=== PATIENT | female | born 1960 | race Caucasian/White ===

== ENCOUNTER → 2016-10-08 | Outpatient (CLI) | payer OTHER ==
--- NOTE | 2016-10-16 11:05 | MM ---
Reason for exam: screening (asymptomatic). Last mammogram was performed 10 years and 5 months ago. History: Patient had first child at age 33. Benign US right core biopsy of the right breast, May 27, 2006. Physical Findings: A clinical breast exam by your physician is recommended on an annual basis and results should be correlated with mammographic findings. MG Screening Mammo w CAD Bilateral CC and MLO view(s) were taken. Prior study comparison: July 05, 2014, mammogram, performed at [facility]. November 26, 2012, mammogram, performed at [facility]. The breast tissue is heterogeneously dense. This may lower the sensitivity of mammography. No significant changes when compared with prior studies. ASSESSMENT: Benign, BI-RAD 2 RECOMMENDATION: Routine screening mammogram of both breasts in 1 year.
== END | disposition home or self-care (01) ==
LOC: RADMAMWWP 11:03
PROVIDERS: ATTEND Family Medicine
DX: Z12.31 Encounter for screening mammogram for malignant neoplasm of breast (principal)

== ENCOUNTER → 2016-10-16 | Outpatient (CLI) | payer OTHER ==
--- NOTE | 2016-10-16 10:17 | CT ---
EXAMINATION TYPE: CT chest w con DATE OF EXAM: 10/16/2016 9:56 AM COMPARISON: NONE HISTORY: mass Lt upper posterior chest CT DLP: 167.8 mGycm Automated exposure control for dose reduction was used. CONTRAST: CT scan of the chest is performed with IV Contrast, patient injected with 100 mL of Omnipaque 300. FINDINGS: LUNGS: The lungs are grossly clear, there is no concerning parenchymal mass or nodule identified. T here is no pleural effusion or pneumothorax seen. The tracheobronchial tree is patent. MEDIASTINUM: There are no greater than 1 cm hilar or mediastinal lymph nodes. No pericardial effusi on is seen. Aorta of normal caliber. OTHER: Within the posterior segment of the right lobe of the liver there is a 1.4 cm mass which does not demonstrate the characteristics of a simple cyst. Hounsfield unit measurement of 53. Previous gallbladder surgery noted. Small hiatal hernia noted. IMPRESSION: 1. No acute intrathoracic process. 2. No soft tissue mass overlying the area of palpable abnormality. 3. 1.4 cm right lobe hepatic lesion does not meet the criteria of a simple cyst. MRI recommended.
== END | disposition home or self-care (01) ==
LOC: RADCTMAIN 09:29
PROVIDERS: ATTEND Family Medicine
DX: D21.3 Benign neoplasm of connective and other soft tissue of thorax (principal)
CPT/HCPCS: 71260; Q9967

== ENCOUNTER 2017-10-15 09:59 | Day surgery (SDC) | payer OTHER ==
[2017-10-12 14:40] VITALS: BMI 27.4
[~2017-10-15 09:59] MED LIST: LACTATED RINGERS 1,000 ML IV SCH; LIDOCAINE 1% 20 ML VIAL (10MG/ML) FOR IV START INTRADERMA PRN
[2017-10-15 10:39] VITALS: RESP 18; TEMP 97.7
[2017-10-15] MEDS ORDERED: PROPOFOL 10 MG/ML 20 ML VIAL IV ONE (11:09)
--- NOTE | 2017-10-15 11:32 | P.PCN ---
Date of Procedure: 10/15/17 Procedure(s) Performed: BRIEF HISTORY: Patient is a 57-year-old pleasant white female, scheduled for an elective colonoscopy as a part of screening for colorectal neoplasia. PROCEDURE PERFORMED: Colonoscopy. PREOPERATIVE DIAGNOSIS: Screening for colon cancer]. IV sedation per Anesthesia. PROCEDURE: After informed consent was obtained, the patient, was brought into the endoscopy unit. IV sedation was administered by Anesthesia under continuous monitoring. Digital rectal examination was normal. Initially the Olympus CF- 160 flexible video colonoscope was then inserted in the rectum, gradually advanced into the cecum without any difficulty. Careful examination was performed as the scope was gradually being withdrawn. Ileocecal valve and the appendiceal orifice were visualized and appeared normal. Prep was excellent. Mucosa of the cecum, ascending colon, transverse colon, descending colon, sigmoid colon, and rectum appeared normal. there was a 5 mm polyp noted in the distal sigmoid colon that was removed by biopsy. Retroflexion was performed in the rectum and no lesions were seen. The patient tolerated the procedure well. IMPRESSION: 5 mm sigmoid colon polyp status post removal by biopsy. Rest of the colon appeared normal. RECOMMENDATIONS: Findings of this examination were discussed with the patient as well as a family. She was advised to follow with the biopsy results. If the biopsy shows a tubular adenoma she can have a repeat colonoscopy in 5 years.
[2017-10-15 12:05] VITALS: BP 115/71; PULSE 72
== END 2017-10-15 12:20 | disposition home or self-care (01) ==
LOC: ORWHC2ENDO 09:59
PROVIDERS: ATTEND Internal Medicine Gastroenterology
DX: Z12.11 Encounter for screening for malignant neoplasm of colon (principal); K63.5 Polyp of colon; F17.210 Nicotine dependence, cigarettes, uncomplicated; Z88.5 Allergy status to narcotic agent; Z88.8 Allergy status to other drugs, medicaments and biological substances; Z79.899 Other long term (current) drug therapy
CPT/HCPCS: 45380; 88305

== ENCOUNTER → 2017-10-20 | Outpatient (CLI) | payer OTHER ==
--- NOTE | 2017-10-21 10:57 | MM ---
Reason for exam: screening (asymptomatic). Last mammogram was performed 1 year ago. History: Patient is postmenopausal and had first child at age 33. Benign US right core biopsy of the right breast, May 27, 2006. Physical Findings: A clinical breast exam by your physician is recommended on an annual basis and results should be correlated with mammographic findings. MG Screening Mammo w CAD Bilateral CC and MLO view(s) were taken. Prior study comparison: October 08, 2016, bilateral MG screening mammo w CAD. July 05, 2014, mammogram, performed at [facility]. The breast tissue is heterogeneously dense. This may lower the sensitivity of mammography. Finding: There are typically benign round calcifications in both breasts. Previous mammotome biopsy in the right breast. There is a chronic nodularity in the right breast. There is no discrete abnormality. ASSESSMENT: Benign, BI-RAD 2 RECOMMENDATION: Routine screening mammogram of both breasts in 1 year.
== END ==
LOC: RADMAMWWP 09:49
PROVIDERS: ATTEND Family Medicine
DX: Z12.31 Encounter for screening mammogram for malignant neoplasm of breast (principal)
CPT/HCPCS: 77067

== ENCOUNTER → 2018-11-08 | Outpatient (CLI) | payer OTHER ==
--- NOTE | 2018-11-09 09:11 | MM ---
Reason for exam: screening (asymptomatic). Last mammogram was performed 1 year and 1 month ago. History: Patient is postmenopausal and had first child at age 33. Benign US right core biopsy of the right breast, May 27, 2006. Physical Findings: A clinical breast exam by your physician is recommended on an annual basis and results should be correlated with mammographic findings. MG Screening Mammo w CAD Bilateral CC and MLO view(s) were taken. Prior study comparison: October 20, 2017, bilateral MG screening mammo w CAD. October 08, 2016, bilateral MG screening mammo w CAD. The breast tissue is extremely dense which could obscure a lesion on mammography. There are benign appearing round calcifications bilaterally. Previous mammotome biopsy in the right breast. There is chronic nodularity in the left breast. There is no discrete abnormality. ASSESSMENT: Benign, BI-RAD 2 RECOMMENDATION: Routine screening mammogram of both breasts in 1 year.
== END | disposition home or self-care (01) ==
LOC: RADMAMWWP 08:59
DX: Z12.31 Encounter for screening mammogram for malignant neoplasm of breast (principal)
CPT/HCPCS: 77067

== ENCOUNTER 2019-01-18 12:14 | Emergency (ER) | payer OTHER ==
[2019-01-18] MEDS ORDERED: ONDANSETRON 4 MG/2 ML VIAL IVP STA (12:52)
[2019-01-18] MEDS ORDERED: KETOROLAC 30 MG/ML 1 ML VIAL IVP STA (12:52)
[2019-01-18 13:13] LABS: ALT 27 U/L (9-52); AST 16 U/L (14-36); Albumin 4.1 g/dL (3.5-5.0); Alkaline Phosphatase 72 U/L (38-126); Amylase 85 U/L (30-110); Anion Gap 9 mmol/L; Basophils # (A) 0.1 k/uL (0-0.2); Basophils % (A) 1 %; Blood Urea Nitrogen 7 mg/dL (7-17); Calcium 9.3 mg/dL (8.4-10.2); Carbon Dioxide 21 mmol/L (22-30); Chloride 109 mmol/L (98-107); Eosinophils # (A) 0.1 k/uL (0-0.7); Eosinophils % (A) 1 %; Glucose 104 mg/dL (74-99); HCT 46.1 % (34.0-46.0); HGB 14.9 gm/dL (11.4-16.0); Lipase 456 U/L (23-300); Lymphocytes # (A) 2.4 k/uL (1.0-4.8); Lymphocytes % (A) 24 %; MCHC 32.3 g/dL (31.0-37.0); MCV 93.1 fL (80.0-100.0); Mean Platelet Volume 7.5; Monocytes # (A) 0.6 k/uL (0-1.0); Monocytes % (A) 6 %; Neutrophils # (A) 6.5 k/uL (1.3-7.7); Neutrophils % (A) 66 %; Platelet Count 341 k/uL (150-450); Potassium 4.1 mmol/L (3.5-5.1); RBC 4.95 m/uL (3.80-5.40); RDW 13.2 % (11.5-15.5); Sodium 139 mmol/L (137-145); Total Bilirubin 0.4 mg/dL (0.2-1.3); Total Protein 6.7 g/dL (6.3-8.2); WBC 9.9 k/uL (3.8-10.6)
--- NOTE | 2019-01-18 13:23 | ED ---
Abdominal Pain HPI - General Chief Complaint: Abdominal Pain Stated Complaint: Flank pain/vomiting Time Seen by Provider: 01/18/19 12:30 Source: patient Mode of arrival: ambulatory - History of Present Illness Initial Comments: 58-year-old female presenting today for chief complaint of right-sided abdominal flank pain and vomiting times one day. Patient states she woke up this morning around 10:30 experiencing some right flank that wraps around towards the right lower abdomen, she states half hour later as the pain increased she had episode of vomiting. Patient another episode of emesis once in the emergency department. Patient denies any hematemesis. Patient denies history of kidney stones. She denies any dysuria urgency frequency hematuria. Patient denies any diarrhea melena or hematochezia. Patient denies any fever or chills or night sweats. Patient denies any upper abdominal pain or chest pain. She states it is all lower. Patient denies shortness of breath. Remaining review of systems negative upon arrival pt VS WNL. Pt denies taking medications prior to arrival and denies any past medical history. - Related Data Home Medications Medication Instructions Recorded Confirmed Invega Injection Dose Unknown 1 each INJ Q30D 10/12/17 01/18/19 Previous Rx's Medication Instructions Recorded Ketorolac [Toradol] 10 mg PO Q8HR PRN 5 Days #15 tab 01/18/19 Ondansetron Odt [Zofran Odt] 4 mg PO Q12HR PRN 4 Days #8 tab 01/18/19 Allergies Allergy/AdvReac Type Severity Reaction Status Date / Time chlorpromazine Allergy Anaphylaxis Verified 01/18/19 12:54 [From Thorazine] codeine Allergy Rash/Hives Verified 01/18/19 12:54 Review of Systems ROS Statement: Those systems with pertinent positive or pertinent negative responses have been documented in the HPI. ROS Other: All systems not noted in ROS Statement are negative. Past Medical History Past Medical History: No Reported History History of Any Multi-Drug Resistant Organisms: None Reported Past Surgical History: Section, Cholecystectomy, Hysterectomy, Orthopedic Surgery, Tubal Ligation Additional Past Surgical History / Comment(s): PILONIADAL CYSTECTOMY. RT ROTATOR CUFF REPAIR Past Anesthesia/Blood Transfusion Reactions: Motion Sickness Past Psychological History: Depression Smoking Status: Current every day smoker Past Alcohol Use History: None Reported Past Drug Use History: Marijuana - Past Family History Mother Family Medical History: No Reported History General Exam - General Exam Comments Initial Comments: General: The patient is awake and alert, in no distress. Vomiting in basin in front of patient. Eye: Pupils are equal, round and reactive to light, extra-ocular movements are intact. No nystagmus. There is normal conjunctiva bilaterally. No signs of icterus. Ears, nose, mouth and throat: There are moist mucous membranes and no oral lesions. Neck: The neck is supple, there is no tenderness or JVD. Cardiovascular: There is a regular rate and rhythm. No murmur, rub or gallop is appreciated. Respiratory: Lungs are clear to auscultation, respirations are non-labored, breath sounds are equal. No wheezes, stridor, rales, or rhonchi. Gastrointestinal: Soft, non-distended, non-tender abdomen without masses or organomegaly noted. There is no rebound or guarding present. No CVA tenderness. Bowel sounds are unremarkable. Musculoskeletal: Normal ROM, no tenderness. Strength 5/5. Sensation intact. Pulses equal bilaterally 2+. Neurological: A&O x 3. CN II-XII intact, There are no obvious motor or sensory deficits. Coordination appears grossly intact. Speech is normal. Skin: Skin is warm and dry and no rashes or lesions are noted. Psychiatric: Cooperative, appropriate mood & affect, normal judgment. Course Vital Signs 01/18/19 01/18/19 01/18/19 12:21 14:08 14:41 Temperature 98.4 F 98.5 F 98.6 F Pulse Rate 63 69 76 Respiratory 20 18 16 Rate Blood Pressure 142/83 102/70 112/68 O2 Sat by Pulse 99 97 98 Oximetry Medical Decision Making - Medical Decision Making 58yo female presenting today for chief complaint of right lower abdominal pain and right flank pain. Patient's symptoms appear consistent with renal colic. Blood in urinalysis. Pt resolved symptoms with toradol. Pt states she is feeling much better. CT revealed findings that are concerning for possible stone vs mass of ureter near right UVJ. Given sudden onset of symptoms, history and relief with Toradol. I feel pt most likely has acute stone. Discussed ddx including possibility of mass and the importance of f/u. I discussed the case with matias Thornton reviewed imaging as well as laboratory studies at this time feel patient is stable for discharge with symptomatic treatment and close out patient urology follow-up. Pt provided strainer. Pt is agreeable with plan requesting discharge home. Return parameters were discussed at length the patient verbalizes understanding. - Lab Data Result diagrams: 01/18/19 12:43 01/18/19 12:43 Lab Results 01/18/19 01/18/19 01/18/19 Range/Units 12:43 12:43 12:43 WBC 9.9 (3.8-10.6) k/uL RBC 4.95 (3.80-5.40) m/uL Hgb 14.9 (11.4-16.0) gm/dL Hct 46.1 H (34.0-46.0) % MCV 93.1 (80.0-100.0) fL MCH 30.0 (25.0-35.0) pg MCHC 32.3 (31.0-37.0) g/dL RDW 13.2 (11.5-15.5) % Plt Count 341 (150-450) k/uL Neutrophils % 66 % Lymphocytes % 24 % Monocytes % 6 % Eosinophils % 1 % Basophils % 1 % Neutrophils # 6.5 (1.3-7.7) k/uL Lymphocytes # 2.4 (1.0-4.8) k/uL Monocytes # 0.6 (0-1.0) k/uL Eosinophils # 0.1 (0-0.7) k/uL Basophils # 0.1 (0-0.2) k/uL Sodium 139 (137-145) mmol/L Potassium 4.1 (3.5-5.1) mmol/L Chloride 109 H (98-107) mmol/L Carbon Dioxide 21 L (22-30) mmol/L Anion Gap 9 mmol/L BUN 7 (7-17) mg/dL Creatinine 0.79 (0.52-1.04) mg/dL Est GFR (CKD-EPI)AfAm >90 (>60 ml/min/1.73 sqM) Est GFR (CKD-EPI)NonAf 84 (>60 ml/min/1.73 sqM) Glucose 104 H (74-99) mg/dL Calcium 9.3 (8.4-10.2) mg/dL Total Bilirubin 0.4 (0.2-1.3) mg/dL AST 16 (14-36) U/L ALT 27 (9-52) U/L Alkaline Phosphatase 72 (38-126) U/L Total Protein 6.7 (6.3-8.2) g/dL Albumin 4.1 (3.5-5.0) g/dL Amylase 85 (30-110) U/L Lipase 456 H (23-300) U/L Urine Color Yellow Urine Appearance Cloudy H (Clear) Urine pH 6.0 (5.0-8.0) Ur Specific Gifford 1.018 (1.001-1.035) Urine Protein Negative (Negative) Urine Glucose (UA) Negative (Negative) Urine Ketones Negative (Negative) Urine Blood Small H (Negative) Urine Nitrite Negative (Negative) Urine Bilirubin Negative (Negative) Urine Urobilinogen <2.0 (<2.0) mg/dL Ur Leukocyte Esterase Trace H (Negative) Urine RBC 23 H (0-5) /hpf Urine WBC 3 (0-5) /hpf Ur Squamous Epith Cells 5 H (0-4) /hpf Urine Bacteria Rare H (None) /hpf Urine Mucus Few H (None) /hpf Disposition Clinical Impression: Right flank pain, Hematuria Disposition: HOME SELF-CARE Condition: Good Instructions (If sedation given, give patient instructions): Kidney Stones (ED), Flank Pain (ED) Additional Instructions: Please use medication as discussed. Please follow-up with urology in the next 2-5 days. Please see primary is 2 days, please go over CT results again together as discussed for appropriate outpatient follow-up. Please return to emergency room if the symptoms increase or worsen or for any other concerns. Prescriptions: Ketorolac [Toradol] 10 mg PO Q8HR PRN 5 Days #15 tab PRN Reason: Severe Pain Ondansetron Odt [Zofran Odt] 4 mg PO Q12HR PRN 4 Days #8 tab PRN Reason: Nausea Is patient prescribed a controlled substance at d/c from ED?: No Referrals: [facility],Clinic [Primary Care Provider] - 1-2 days Lamont Magdaleno MD [STAFF PHYSICIAN] - 1-2 days Time of Disposition: 14:25
[2019-01-18 13:33] LABS: Appearance,Urine Cloudy (Clear); Bacteria,Urine Rare /hpf; Bilirubin,Urine Negative (Negative); Blood,Urine Small (Negative); Color,Urine Yellow; Glucose,Urine (UA) Negative (Negative); Ketones,Urine Negative (Negative); Leukocyte Esterase,Urine Trace (Negative); Mucus,Urine Few /hpf; Nitrite,Urine Negative (Negative); Protein,Urine Negative (Negative); RBC,Urine 23 /hpf (0-5); Specific Gravity,Urine 1.018 (1.001-1.035); Squamous Epithelial Cell,Urine 5 /hpf (0-4); Urobilinogen,Urine <2.0 mg/dL (<2.0); WBC,Urine 3 /hpf (0-5)
--- NOTE | 2019-01-18 13:52 | CT ---
EXAMINATION TYPE: CT abdomen pelvis w con DATE OF EXAM: 01/18/2019 COMPARISON: NONE HISTORY: 58-year-old female with right flank pain TECHNIQUE: Contiguous axial scanning of the abdomen and pelvis following administration of 100 ml Iso marcelo 300 IV contrast. Delayed images through the kidneys and coronal/sagittal reconstructions perform ed. CT DLP: 885.2 mGycm Automated exposure control for dose reduction was used. FINDINGS: Heart normal size without pericardial effusion. Mild hazy dependent atelectasis. Hypodense lesion posterior right liver lobe shows peripheral nodular puddling enhancement and progres sive fill-in on delayed kidney images compatible with a hemangioma. Possible additional tiny subcenti meter hemangioma anterior left liver lobe, axial image 20. Portal venous system is patent. Bile duct is dilated at 1.1 cm but with normal distal tapering. Findings likely relate to postcholecy stectomy status. Adrenal glands, left kidney, spleen, and pancreas appear within normal limits. No dilated small bowel, free fluid, or free air. No mesenteric or retroperitoneal lymphadenopathy. There is mild right-sided hydronephrosis and hydroureter. There is a area of hyperdensity measuring 5 mm at the right UVJ, refer to axial image 75. Mild stool burden. Multiple pelvic phleboliths. Bladder not distended. Uterus surgically absent. Neither ovary is identified. Bones: Facet arthropathy lower lumbar spine and advanced degenerative disc disease L5-S1. IMPRESSION: 1. MILD RIGHT-SIDED HYDRONEPHROSIS AND HYDROURETER COMPATIBLE WITH OBSTRUCTIVE UROPATHY. 2. A VAGUE 5 MM DENSITY VERSUS AREA OF ENHANCEMENT AT THE RIGHT UVJ. A SUBTLE CALCULUS OR UROTHELIAL NEOPLASM ARE IN THE DIFFERENTIAL. CORRELATE WITH URINE CYTOLOGY AND POSSIBLE UROLOGY REFERRAL. 3. DILATED BILE DUCT TO 1.1 CM LIKELY NORMAL IN THIS PATIENT STATUS POST CHOLECYSTECTOMY. THIS CAN BE CONFIRMED WITH NORMAL ALKALINE PHOSPHATASE AND BILIRUBIN LEVELS.
[2019-01-18 14:43] VITALS: BP 112/68; PULSE 76; RESP 16; TEMP 98.6
== END 2019-01-18 14:35 | disposition home or self-care (01) ==
LOC: EC 12:14
DX: R31.9 Hematuria, unspecified (principal); R10.31 Right lower quadrant pain; R11.10 Vomiting, unspecified; F17.200 Nicotine dependence, unspecified, uncomplicated; Z88.5 Allergy status to narcotic agent; Z88.8 Allergy status to other drugs, medicaments and biological substances; Z79.899 Other long term (current) drug therapy; Z90.49 Acquired absence of other specified parts of digestive tract
CPT/HCPCS: 36415; 80053; 82150; 83690; 85025; 81001; 74177; 99284; 96374; 96375; J2405; J1885; Q9967

== ENCOUNTER → 2020-10-30 | Outpatient (CLI) | payer OTHER ==
--- NOTE | 2020-10-31 09:58 | MM ---
Reason for exam: screening (asymptomatic). Last mammogram was performed 2 years ago. History: Patient is postmenopausal and had first child at age 33. Benign US right core biopsy of the right breast, May 27, 2006. Physical Findings: A clinical breast exam by your physician is recommended on an annual basis and results should be correlated with mammographic findings. MG Screening Mammo w CAD Bilateral CC and MLO view(s) were taken. Prior study comparison: November 08, 2018, bilateral MG screening mammo w CAD. October 20, 2017, bilateral MG screening mammo w CAD. The breast tissue is heterogeneously dense. This may lower the sensitivity of mammography. Previous mammotome biopsy in the right breast. There is chronic nodularity bilaterally. No significant changes when compared with prior studies. ASSESSMENT: Benign, BI-RAD 2 RECOMMENDATION: Routine screening mammogram of both breasts in 1 year.
== END | disposition home or self-care (01) ==
LOC: RADMAMWWP 10:25
DX: Z12.31 Encounter for screening mammogram for malignant neoplasm of breast (principal); Z88.5 Allergy status to narcotic agent; Z88.8 Allergy status to other drugs, medicaments and biological substances; Z91.048 Other nonmedicinal substance allergy status
CPT/HCPCS: 77067

== ENCOUNTER 2022-05-22 17:24 | Emergency (ER) | payer OTHER ==
[2022-05-22 18:27] VITALS: RESP 20
--- NOTE | 2022-05-22 18:44 | ED ---
General Adult HPI - General Chief complaint: Headache Stated complaint: Fall,[place] sent Time Seen by Provider: 05/22/22 18:29 Source: patient, RN notes reviewed Mode of arrival: ambulatory Limitations: no limitations - History of Present Illness Initial comments: Patient is a pleasant 62-year-old female present to the emergency department with had discomfort. Patient has chronic Stevinson sickness and was in a car. When patient got out she did fall down which she does attribute to her chronic severe motion sickness. Patient did strike the top of her head. No syncope or loss of consciousness. Patient has had discomfort since that time. Patient saw her doctor and advised to come to the ER for head CT. No neck or back pain. No confusion. No weakness. No speech problems. - Related Data Home Medications Medication Instructions Recorded Confirmed Invega Injection Dose Unknown 1 each INJ Q30D 10/12/17 01/18/19 Previous Rx's Medication Instructions Recorded Ketorolac [Toradol] 10 mg PO Q8HR PRN 5 Days #15 tab 01/18/19 Ondansetron Odt [Zofran Odt] 4 mg PO Q12HR PRN 4 Days #8 tab 01/18/19 Allergies Allergy/AdvReac Type Severity Reaction Status Date / Time chlorpromazine Allergy Anaphylaxis Verified 05/22/22 18:27 [From Thorazine] codeine Allergy Rash/Hives Verified 05/22/22 18:27 Review of Systems ROS Statement: Those systems with pertinent positive or pertinent negative responses have been documented in the HPI. ROS Other: All systems not noted in ROS Statement are negative. Constitutional: Denies: fever Eyes: Denies: eye pain ENT: Denies: ear pain Respiratory: Denies: cough Cardiovascular: Denies: chest pain Endocrine: Denies: fatigue Gastrointestinal: Denies: abdominal pain Genitourinary: Denies: dysuria Musculoskeletal: Denies: back pain Skin: Denies: rash Neurological: Reports: as per HPI, headache. Denies: weakness, confusion Past Medical History Past Medical History: No Reported History History of Any Multi-Drug Resistant Organisms: None Reported Past Surgical History: Section, Cholecystectomy, Hysterectomy, Orthopedic Surgery, Tubal Ligation Additional Past Surgical History / Comment(s): PILONIADAL CYSTECTOMY. RT ROTATOR CUFF REPAIR Past Anesthesia/Blood Transfusion Reactions: Motion Sickness Past Psychological History: Depression Smoking Status: Former smoker Past Alcohol Use History: None Reported Past Drug Use History: Marijuana - Past Family History Mother Family Medical History: No Reported History General Exam Limitations: no limitations General appearance: alert, in no apparent distress Head exam: Present: atraumatic, normocephalic Eye exam: Present: normal appearance, PERRL, EOMI ENT exam: Present: normal oropharynx Neck exam: Present: normal inspection. Absent: tenderness Respiratory exam: Present: normal lung sounds bilaterally Cardiovascular Exam: Present: regular rate, normal rhythm GI/Abdominal exam: Present: soft. Absent: tenderness Extremities exam: Present: normal inspection, full ROM Neurological exam: Present: alert, CN II-XII intact. Absent: motor sensory deficit Expanded Neurological exam: Present: protecting the airway Speech: Present: fluid speech Cranial nerves: EOM's Intact: Normal, Facial Sensation: Normal Sensory exam: Upper Extremity Light Touch: Normal, Lower Extremity Light Touch: Normal Motor strength exam: RUE: 5, LUE: 5, RLE: 5, LLE: 5 Eye Response: (4) open spontaneously Motor Response: (6) obeys commands Verbal Response: (5) oriented Psychiatric exam: Present: normal affect, normal mood Skin exam: Present: normal color Course Vital Signs 05/22/22 18:23 Temperature 98.2 F Pulse Rate 85 Respiratory 20 Rate Blood Pressure 114/69 O2 Sat by Pulse 96 Oximetry Medical Decision Making - Medical Decision Making Patient reevaluated. Patient and family updated. Patient is still waiting room. Patient states she believes she did have an episode of passing out as she got out of the car when she felt motion sick. Patient is offered further testing regarding this. Patient is advised to have this done. Patient does not want to have this done at this time because she does not want to wait for it as well as she already has follow-up planned. Episode occurred around a month ago. - Radiology Data Radiology results: report reviewed (Head CT reveals no acute process) Disposition Clinical Impression: Head contusion Disposition: HOME SELF-CARE Condition: Stable Instructions (If sedation given, give patient instructions): Head Injury (ED) Additional Instructions: Please do follow-up with your primary care physician in the next day or 2 for recheck. You should have further evaluation for this. [id number] Tylenol as needed. Return for confusion, weakness, passing out, chest pain, abdominal pain, back pain, worsening symptoms or other concerns. Is patient prescribed a controlled substance at d/c from ED?: No Referrals: [facility],Clinic [Primary Care Provider] - 1-2 days Time of Disposition: 19:28
--- NOTE | 2022-05-22 19:17 | CT ---
EXAMINATION TYPE: CT brain wo con DATE OF EXAM: 05/22/2022 HISTORY: headache x [address] DLP: 1078.4 mGycm. Automated Exposure Control for Dose Reduction was Utilized. TECHNIQUE: CT scan of the head is performed without contrast. COMPARISON: None. FINDINGS: There is no acute intracranial hemorrhage or midline shift identified. There is diffuse annie tricular and sulcal prominence consistent with diffuse age-related cerebral atrophy. There is low-at tenuation in the periventricular white matter consistent with chronic small vessel ischemic change. The globes are intact and the visualized sinuses are clear. IMPRESSION: No acute intracranial hemorrhage or midline shift. There is diffuse age-related cerebra l atrophy and chronic small vessel ischemic change noted.
[2022-05-22 19:38] VITALS: BP 116/70; PULSE 82; TEMP 97.8
== END 2022-05-22 19:38 | disposition home or self-care (01) ==
LOC: EC 17:24
DX: S00.93XA Contusion of unspecified part of head, initial encounter (principal); Z88.5 Allergy status to narcotic agent; Z88.4 Allergy status to anesthetic agent; Z87.891 Personal history of nicotine dependence; W01.0XXA Fall on same level from slipping, tripping and stumbling without subsequent striking against object, initial encounter
CPT/HCPCS: 70450; 99284

== ENCOUNTER → 2022-11-25 | Outpatient (CLI) | payer OTHER ==
--- NOTE | 2022-11-26 10:26 | MM ---
Reason for Exam: Screening (asymptomatic). Last mammogram was performed 1 year(s) and 1 month(s) ago. Patient History: Menarche at age 12. First Full-Term at age 33. Late child-bearing (after 30). Left ovary removed at age 47. Right ovary removed at age 47. Hysterectomy at age 47. Postmenopausal. 05/27/2006, Benign Core Biopsy on the right side. Risk Values: Traci 5 year model risk: 2.5%. NCI Lifetime model risk: 11.0%. Prior Study Comparison: 11/08/2018 Bilateral Screening Mammogram, [facility]. 10/30/2020 Bilateral Screening Mammogram, [facility]. 10/31/2021 Bilateral Screening Mammogram, [facility]. Tissue Density: The breast tissue is heterogeneously dense. This may lower the sensitivity of mammography. Analyzed By CAD. Overall Assessment: Incomplete: need additional imaging evaluation, BI-RAD 0 Management: Diagnostic Breast Ultrasound of the left breast. Electronically signed and approved by: Jones Moses M.D.
== END | disposition home or self-care (01) ==
LOC: RADMAMWWP 10:42
PROVIDERS: ATTEND Family Medicine
DX: Z12.31 Encounter for screening mammogram for malignant neoplasm of breast (principal); Z78.0 Asymptomatic menopausal state
CPT/HCPCS: 77067

== ENCOUNTER → 2022-11-27 | Outpatient (CLI) | payer OTHER ==
--- NOTE | 2022-11-27 09:14 | USB ---
Reason for Exam: Additional evaluation requested from abnormal screening. Patient History: Menarche at age 12. First Full-Term at age 33. Late child-bearing (after 30). Left ovary removed at age 47. Right ovary removed at age 47. Hysterectomy at age 47. Postmenopausal. 05/27/2006, Benign Core Biopsy on the right side. Risk Values: Traci 5 year model risk: 2.5%. NCI Lifetime model risk: 11.0%. Technique: Method: Whole Breast Handheld. Prior Study Comparison: 10/30/2020 Bilateral Screening Mammogram, [facility]. 10/31/2021 Bilateral Screening Mammogram, [facility]. 11/25/2022 Bilateral MG screening mammo w CAD, [facility]. Findings: The whole breast of the left breast, the axilla of the left breast and the retroareolar of the left breast were scanned. A complete US of all four quadrants of the breast, axilla and retro-areolar region were reviewed. No solid or cystic masses are identified. * 6:00 1 cm from nipple bilobed anechoic cyst measuring 7 x 3 x 6 mm. * 11:00 8 cm from nipple hypoechoic mass measuring 4 x 3 x 6 mm. Overall Assessment: Probably benign, BI-RAD 3 Management: Diagnostic Breast Ultrasound of the left breast in 6 months. Short-term follow-up left breast in the areas at 6:00 and 11:00 to show stability. A clinical breast exam by your physician is recommended on an annual basis and results should be correlated with mammographic findings. This exam should not preclude additional follow-up of suspicious palpable abnormalities. Results were given to the patient verbally at the time of exam. Electronically signed and approved by: Venkat Smith DO
== END | disposition home or self-care (01) ==
LOC: RADUSWWP 08:20
PROVIDERS: ATTEND Family Medicine
DX: R92.8 Other abnormal and inconclusive findings on diagnostic imaging of breast (principal); Z78.0 Asymptomatic menopausal state; Z98.890 Other specified postprocedural states

== ENCOUNTER 2023-05-28 15:05 | Emergency (ER) | payer OTHER, MEDICARE ==
--- NOTE | 2023-05-28 16:10 | ED ---
General Adult HPI - General Chief complaint: Psychiatric Symptoms Stated complaint: Suicidal Idealations Time Seen by Provider: 05/28/23 15:30 Source: patient, EMS, RN notes reviewed, old records reviewed Mode of arrival: EMS Limitations: no limitations - History of Present Illness Initial comments: This is a 63-year-old female who was sent to the emergency department by her primary medical care doctor because she was making comments about wanting to kill himself. According to her physician she stated she was going to start overdosing on pills. Patient has a history of PTSD delusions depression with psychotic manifestations. Patient has attempted in the past according to the primary medical care doctor he petitioned her center and to be evaluated. Patient herself currently denies wanting to be here but she does admit that she's hearing voices and states she wants to kill herself when I ask her does she want to kill herself she does not answer and she just states that she would like to leave. Patient has no physical complaints today. - Related Data Home Medications Medication Instructions Recorded Confirmed Benztropine Mesylate [Cogentin] 1 mg PO BID 05/12/23 05/12/23 Mirtazapine [Remeron] 7.5 mg PO HS 05/12/23 05/12/23 Allergies Allergy/AdvReac Type Severity Reaction Status Date / Time chlorpromazine Allergy Anaphylaxis Verified 05/28/23 20:27 [From Thorazine] codeine Allergy Rash/Hives Verified 05/28/23 20:27 Review of Systems ROS Statement: Those systems with pertinent positive or pertinent negative responses have been documented in the HPI. ROS Other: All systems not noted in ROS Statement are negative. Past Medical History Past Medical History: No Reported History History of Any Multi-Drug Resistant Organisms: None Reported Past Surgical History: Section, Cholecystectomy, Hysterectomy, Orthopedic Surgery, Tubal Ligation Additional Past Surgical History / Comment(s): PILONIADAL CYSTECTOMY. RT ROTATOR CUFF REPAIR Past Anesthesia/Blood Transfusion Reactions: Motion Sickness Past Psychological History: Depression Smoking Status: Former smoker Past Alcohol Use History: None Reported Past Drug Use History: Marijuana - Past Family History Mother Family Medical History: No Reported History General Exam - General Exam Comments Initial Comments: GENERAL: Patient is well-developed and well-nourished. Patient is nontoxic and well- hydrated and is in no acute distress. ENT: Neck is soft and supple. No significant lymphadenopathy is noted. Oropharynx is clear. Moist mucous membranes. Neck has full range of motion without eliciting any pain. EYES: The sclera were anicteric and conjunctiva were pink and moist. Extraocular movements were intact and pupils were equal round and reactive to light. Eyelids were unremarkable. PULMONARY: Unlabored respirations. Good breath sounds bilaterally. No audible rales rhonchi or wheezing was noted. CARDIOVASCULAR: There is a regular rate and rhythm without any murmurs gallops or rubs. ABDOMEN: Soft and nontender with normal bowel sounds. SKIN: Skin is clear with no lesions or rashes and otherwise unremarkable. NEUROLOGIC: Patient is alert and oriented x3. Cranial nerves II through XII are grossly intact. Motor and sensory are also intact. Normal speech, volume and content. Symmetrical smile. MUSCULOSKELETAL: Normal extremities with adequate strength and full range of motion. LYMPHATICS: No significant lymphadenopathy is noted PSYCHIATRIC: Patient will not tell me she is not suicidal but she does admit to hearing voices that tell her she should kill herself. Patient does not want to stay in the hospital she wants to go home. Limitations: no limitations Course Vital Signs 05/28/23 15:19 Temperature 97.9 F Pulse Rate 83 Respiratory 18 Rate Blood Pressure 128/85 O2 Sat by Pulse 97 Oximetry Medical Decision Making - Medical Decision Making EKG was interpreted by myself EKG shows a sinus rhythm at 71 bpm PA interval is 174 QRS is 81 QT interval 390 QTC is 412 per patient's EKG shows no ST segment elevation or depression. Was pt. sent in by a medical professional or institution (, PA, FURNITURE SPRAYER, urgent care, hospital, or fdc...) When possible be specific @ -Patient was sent in by his primary medical care doctor Did you speak to anyone other than the patient for history (EMS, parent, family, police, friend...)? What history was obtained from this source @ -Primary doctor spoke with me about the patient's condition prior to the patient arrival Did you review nursing and triage notes (agree or disagree)? Why? @ -I reviewed and agree with nursing and triage notes Were old charts reviewed (outside hosp., previous admission, EMS record, old EKG, old radiological studies, urgent care reports/EKG's, fdc records)? Report findings @ -No old charts were reviewed Differential Diagnosis (chest pain, altered mental status, abdominal pain women, abdominal pain men, vaginal bleeding, weakness, fever, dyspnea, syncope, headache, dizziness, GI bleed, back pain, seizure, CVA, palpatations, mental health, musculoskeletal)? @ -Differential Mental Health Depression, anxiety, bipolar, psychosis, schizophrenia, borderline personality, situational depression, adjustment disorder, behavioral disorder, brain tumor, malingering, substance abuse, encephalopathy, medication reaction, dementia, hypothyroidism, degenerative neurologic disorder, lupus.... This is not meant to be all-inclusive list EKG interpreted by me (3pts min.). @ -As above X-rays interpreted by me (1pt min.). @ -None done CT interpreted by me (1pt min.). @ -None done U/S interpreted by me (1pt. min.). @ -None done What testing was considered but not performed or refused? (CT, X-rays, U/S, labs)? Why? @ -None What meds were considered but not given or refused? Why? @ -None Did you discuss the management of the patient with other professionals (professionals i.e. , PA, FURNITURE SPRAYER, lab, RT, psych nurse, drug abuse social worker, vb net programmer, teacher, home lending officer, watch case polisher)? Give summary @ -I spoke with EPS nursing about this patient extensively Was smoking cessation discussed for >3mins.? @ -No Was critical care preformed (if so, how long)? @ -No Were there social determinants of health that impacted care today? How? (Homel essness, low income, unemployed, alcoholism, drug addiction, transportation, low edu. Level, literacy, decrease access to med. care, skilled nursing, rehab)? @ -No Was there de-escalation of care discussed even if they declined (Discuss DNR or withdrawal of care, Hospice)? DNR status @ -No What co-morbidities impacted this encounter? (DM, HTN, Smoking, COPD, CAD, Cancer, CVA, ARF, Chemo, Hep., AIDS, mental health diagnosis, sleep apnea, morbid obesity)? @ -None Was patient admitted / discharged? Hospital course, mention meds given and route, prescriptions, significant lab abnormalities, going to OR and other pertinent info. @ -Patient will be transferred to a geriatric psych facility I filled out a clinical certification on this patient Undiagnosed new problem with uncertain prognosis? @ -No Drug Therapy requiring intensive monitoring for toxicity (Heparin, Nitro, Insulin, Cardizem)? @ -No Were any procedures done? @ -No Diagnosis/symptom? @ -Suicidal ideations Acute, or Chronic, or Acute on Chronic? @ -Acute Uncomplicated (without systemic symptoms) or Complicated (systemic symptoms)? @ -Complicated Side effects of treatment? @ -No Exacerbation, Progression, or Severe Exacerbation? @ -No Poses a threat to life or bodily function? How? (Chest pain, USA, VT, pneumonia, PE, COPD, DKA, ARF, appy, cholecystitis, CVA, Diverticulitis, Homicidal, Suicidal, threat to staff... and all critical care pts) @ -Yes this could lead to a suicide attempt and - Lab Data Result diagrams: 05/28/23 17:10 05/28/23 17:10 Lab Results 05/28/23 05/28/23 Range/Units 17:10 17:10 WBC 7.4 (3.8-10.6) k/uL RBC 4.60 (3.80-5.40) m/uL Hgb 13.9 (11.4-16.0) gm/dL Hct 42.7 (34.0-46.0) % MCV 92.9 (80.0-100.0) fL MCH 30.2 (25.0-35.0) pg MCHC 32.5 (31.0-37.0) g/dL RDW 13.0 (11.5-15.5) % Plt Count 322 (150-450) k/uL MPV 8.0 Neutrophils % 56 % Lymphocytes % 33 % Monocytes % 9 % Eosinophils % 1 % Basophils % 0 % Neutrophils # 4.1 (1.3-7.7) k/uL Lymphocytes # 2.4 (1.0-4.8) k/uL Monocytes # 0.6 (0-1.0) k/uL Eosinophils # 0.1 (0-0.7) k/uL Basophils # 0.0 (0-0.2) k/uL Sodium 138 (137-145) mmol/L Potassium 4.1 (3.5-5.1) mmol/L Chloride 107 (98-107) mmol/L Carbon Dioxide 24 (22-30) mmol/L Anion Gap 7 mmol/L BUN 11 (7-17) mg/dL Creatinine 0.96 (0.52-1.04) mg/dL Est GFR (CKD-EPI)AfAm 73 (>60 ml/min/1.73 sqM) Est GFR (CKD-EPI)NonAf 63 (>60 ml/min/1.73 sqM) Glucose 106 H (74-99) mg/dL Calcium 9.7 (8.4-10.2) mg/dL Total Bilirubin 0.3 (0.2-1.3) mg/dL AST 23 (14-36) U/L ALT 21 (4-34) U/L Alkaline Phosphatase 68 (38-126) U/L Total Protein 6.4 (6.3-8.2) g/dL Albumin 3.8 (3.5-5.0) g/dL Disposition Clinical Impression: Suicidal ideation Disposition: TRANSFER TO PSYCH HOSP/UNIT Referrals: Rhonda Ceja DO [Primary Care Provider] - 1-2 days Time of Disposition: 20:25
[2023-05-28 17:27] LABS: Basophils % (A) 0 %; Eosinophils # (A) 0.1 k/uL (0-0.7); Eosinophils % (A) 1 %; HCT 42.7 % (34.0-46.0); HGB 13.9 gm/dL (11.4-16.0); Lymphocytes # (A) 2.4 k/uL (1.0-4.8); Lymphocytes % (A) 33 %; MCH 30.2 pg (25.0-35.0); MCHC 32.5 g/dL (31.0-37.0); MCV 92.9 fL (80.0-100.0); Monocytes # (A) 0.6 k/uL (0-1.0); Monocytes % (A) 9 %; Neutrophils # (A) 4.1 k/uL (1.3-7.7); Neutrophils % (A) 56 %; Platelet Count 322 k/uL (150-450); WBC 7.4 k/uL (3.8-10.6)
[2023-05-28 17:45] LABS: ALT 21 U/L (4-34); AST 23 U/L (14-36); African American GFR (CKD) 73 (>60 ml/min/1.73 sqM); Albumin 3.8 g/dL (3.5-5.0); Alkaline Phosphatase 68 U/L (38-126); Anion Gap 7 mmol/L; Blood Urea Nitrogen 11 mg/dL (7-17); Calcium 9.7 mg/dL (8.4-10.2); Carbon Dioxide 24 mmol/L (22-30); Chloride 107 mmol/L (98-107); Glucose 106 mg/dL (74-99); Non-African American GFR(CKD) 63 (>60 ml/min/1.73 sqM); Potassium 4.1 mmol/L (3.5-5.1); Sodium 138 mmol/L (137-145); Total Bilirubin 0.3 mg/dL (0.2-1.3); Total Protein 6.4 g/dL (6.3-8.2)
[2023-05-28] MEDS ORDERED: LORazepam 1 MG TAB PO STA (17:55)
[2023-05-28 21:25] LABS: Appearance,Urine Clear (Clear); Bacteria,Urine Rare /hpf; Bilirubin,Urine Negative (Negative); Blood,Urine Negative (Negative); Color,Urine Colorless; Glucose,Urine (UA) Negative (Negative); Hyaline Casts,Urine 1 /lpf (0-2); Ketones,Urine Negative (Negative); Leukocyte Esterase,Urine Large (Negative); Mucus,Urine Rare /hpf; Nitrite,Urine Negative (Negative); PH, Urine 6.5 (5.0-8.0); Protein,Urine Negative (Negative); RBC,Urine 4 /hpf (0-5); Squamous Epithelial Cell,Urine 8 /hpf (0-4); Urobilinogen,Urine <2.0 mg/dL (<2.0); WBC,Urine 32 /hpf (0-5)
[2023-05-28 21:34] LABS: Amphetamine Screen,Urine Not Detected (NotDetected); Cocaine Screen,Urine Not Detected (NotDetected); Opiate Screen,Urine Not Detected (NotDetected); Phencyclidine Screen,Urine Not Detected (NotDetected); Urn Cannabinoid Scrn Detected (NotDetected)
[2023-05-28 21:35] LABS: Barbiturate Screen,Urine Not Detected (NotDetected); Benzodiazepines Screen,Urine Detected (NotDetected); Methadone Screen, Urine Not Detected (NotDetected); Oxycodone Screen, Urine Not Detected (NotDetected); Tricyclic Antidepressant,Urine Not Detected (NotDetected)
[2023-05-29] MEDS ORDERED: LORazepam 1 MG TAB PO STA (03:59)
[2023-05-29 04:20] LABS: Appearance,Urine Cloudy (Clear); Bacteria,Urine Rare /hpf; Bilirubin,Urine Negative (Negative); Blood,Urine Negative (Negative); Color,Urine Light Yellow; Glucose,Urine (UA) Negative (Negative); Ketones,Urine Negative (Negative); Leukocyte Esterase,Urine Large (Negative); Mucus,Urine Many /hpf; Nitrite,Urine Negative (Negative); PH, Urine 5.5 (5.0-8.0); Protein,Urine Negative (Negative); RBC,Urine 5 /hpf (0-5); Specific Gravity,Urine 1.016 (1.001-1.035); Squamous Epithelial Cell,Urine 6 /hpf (0-4); Urobilinogen,Urine <2.0 mg/dL (<2.0); WBC,Urine 31 /hpf (0-5)
[2023-05-29] MEDS ORDERED: LORazepam 2 MG/ML INJ IM STA ×2 (08:46→13:17)
[2023-05-30] MEDS ORDERED: LORazepam 1 MG TAB PO STA ×3 (02:22→15:59)
[2023-05-30] MEDS ORDERED: OLANZapine 10 MG VIAL IM STA (10:19)
[2023-05-30] MEDS ORDERED: LORazepam 2 MG/ML INJ IV STA (12:22)
[2023-05-31] MEDS ORDERED: LORazepam 1 MG TAB PO STA ×2 (03:43→08:57)
[2023-05-31] MEDS ORDERED: MULTIVITAMINS, THERA 1 EACH TAB PO SCH (09:00)
[2023-05-31] MEDS ORDERED: CALCIUM CARBONATE 500 MG CHEWABLE PO SCH (09:00)
[2023-05-31 09:04] VITALS: TEMP 98.9
[2023-05-31] MEDS ORDERED: hydrOXYzine HCL 25 MG TAB PO PRN (10:27)
[2023-05-31] MEDS ORDERED: VIT A,C & E-LUTEIN-MINERALS 1 EACH TAB PO SCH (10:45)
[2023-05-31] MEDS ORDERED: hydrOXYzine HCL 25 MG TAB PO SCH (13:00)
[2023-05-31] MEDS ORDERED: BENZTROPINE MESYLATE 1 MG TAB PO SCH ×2 (13:00→21:00)
[2023-05-31 13:27] VITALS: BP 105/60; PULSE 105; RESP 19
[2023-05-31] MEDS ORDERED: METOCLOPRAMIDE 10 MG TAB PO STA (14:10)
[2023-05-31] MEDS ORDERED: MIRTAZAPINE 15 MG TAB PO SCH (21:00)
[2023-05-31] MEDS ORDERED: traZODone HCL 100 MG TAB PO SCH (21:00)
[2023-06-11] MEDS ORDERED: PALIPERIDONE IM 234 MG/1.5 ML SYG IM SCH (09:00)
== END 2023-05-31 15:02 ==
LOC: EC 15:05
DX: R45.851 Suicidal ideations (principal); F12.90 Cannabis use, unspecified, uncomplicated; Z86.59 Personal history of other mental and behavioral disorders; Z87.891 Personal history of nicotine dependence; Z88.5 Allergy status to narcotic agent; Z88.8 Allergy status to other drugs, medicaments and biological substances; Z90.49 Acquired absence of other specified parts of digestive tract
CPT/HCPCS: 82075; 36415 ×2; 93005; 80053; 84443; 85025; 81001 ×2; 80306; 80320; 87635; 99285; 96372 ×2; 96374; J2060 ×2

== ENCOUNTER → 2023-06-25 | Outpatient (CLI) | payer MEDICARE ==
--- NOTE | 2023-06-25 09:01 | USB ---
Reason for Exam: Follow-up at short interval from prior study. Patient History: Menarche at age 12. First Full-Term at age 33. Late child-bearing (after 30). Left ovary removed at age 47. Right ovary removed at age 47. Hysterectomy at age 47. Postmenopausal. 05/27/2006, Benign Core Biopsy on the right side. Risk Values: Traci 5 year model risk: 2.6%. NCI Lifetime model risk: 10.7%. Technique: Method: Targeted. Prior Study Comparison: 10/30/2020 Bilateral Screening Mammogram, [facility]. 10/31/2021 Bilateral Screening Mammogram, [facility]. 11/25/2022 Bilateral MG screening mammo w CAD, [facility]. Findings: The upper inner quadrant of the left breast, the lower inner quadrant of the left breast, the axilla of the left breast and the retroareolar of the left breast were scanned. A complete US of all four quadrants of the breast, axilla, and retro-areolar region were reviewed. At the 6:00 position, 1 cm from the nipple, there is either a complex cyst or cyst cluster measuring 8 x 6 x 5 mm. This is in comparison to 7 x 6 x 3 mm, previously. Cyst cluster is suspected. Ongoing follow-up recommended. At the 11:00 position, 8 cm from the nipple, there is an elongated hypoechoic structure measuring 7 x 4 x 3 mm. This is in comparison to 6 x 4 x 3 mm, previously. Possible small cyst with debris. Ongoing follow-up recommended. No other solid or cystic lesion. Minimal duct ectasia behind the nipple. No axillary lymphadenopathy. Overall Assessment: Probably benign, BI-RAD 3 Management: Diagnostic Mammogram of both breasts in 6 months. Diagnostic Breast Ultrasound of the left breast in 6 months. A clinical breast exam by your physician is recommended on an annual basis and results should be correlated with mammographic findings. This exam should not preclude additional follow-up of suspicious palpable abnormalities. Results were given to the patient verbally at the time of exam. Electronically signed and approved by: Reddy Domínguez M.D. Radiologist
== END | disposition home or self-care (01) ==
LOC: RADUSWWP 08:12
PROVIDERS: ATTEND Family Medicine
DX: R92.8 Other abnormal and inconclusive findings on diagnostic imaging of breast (principal); Z78.0 Asymptomatic menopausal state

== ENCOUNTER 2023-07-02 11:11 | Emergency (ER) | payer OTHER, MEDICARE ==
--- NOTE | 2023-07-02 11:27 | ED ---
General Adult HPI - General Source: patient, EMS, RN notes reviewed Mode of arrival: EMS Limitations: no limitations <Deon Miramontes - Last Filed: 07/02/23 14:52> - General Source: RN notes reviewed, old records reviewed Mode of arrival: EMS Limitations: no limitations - History of Present Illness -: unknown Consistency: constant Associated Symptoms: denies other symptoms Treatments Prior to Arrival: none <Rory Ch - Last Filed: 07/02/23 17:18> <Annette Lott - Last Filed: 07/03/23 08:07> - General Stated complaint: Mental Health Time Seen by Provider: 07/02/23 11:14 - History of Present Illness Initial comments: 63-year-old female presents emergency Department via EMS from PCPs office for p sychiatric evaluation. Patient had increasing depression, suicidal ideation. She's had suicide attempts in the past. Patient denies any self-harm recently. She does admit to marijuana use denies any alcohol abuse. Denies any physical complaints. She states she is not taking her current psychiatric medications. (Deon Miramontes) - Related Data Home Medications Medication Instructions Recorded Confirmed No Known Home Medications 07/02/23 07/02/23 Allergies Allergy/AdvReac Type Severity Reaction Status Date / Time chlorpromazine Allergy Anaphylaxis Verified 07/02/23 13:06 [From Thorazine] codeine Allergy Rash/Hives Verified 07/02/23 13:06 haloperidol [From Haldol] Allergy Rash/Hives Verified 07/02/23 13:06 NICOTINE PATCH Allergy Rash/Hives Uncoded 05/28/23 21:48 Review of Systems ROS Other: All systems not noted in ROS Statement are negative. <Deon Miramontes - Last Filed: 07/02/23 14:52> ROS Other: All systems not noted in ROS Statement are negative. <Rory Ch - Last Filed: 07/02/23 17:18> ROS Other: All systems not noted in ROS Statement are negative. <Annette Lott - Last Filed: 07/03/23 08:07> ROS Statement: Those systems with pertinent positive or pertinent negative responses have been documented in the HPI. Past Medical History Past Medical History: No Reported History History of Any Multi-Drug Resistant Organisms: None Reported Past Surgical History: Section, Cholecystectomy, Hysterectomy, Orthopedic Surgery, Tubal Ligation Additional Past Surgical History / Comment(s): PILONIADAL CYSTECTOMY. RT ROTATOR CUFF REPAIR Past Anesthesia/Blood Transfusion Reactions: Motion Sickness Past Psychological History: Depression Smoking Status: Former smoker Past Alcohol Use History: None Reported Past Drug Use History: Marijuana - Past Family History Mother Family Medical History: No Reported History <Deon Miramontes - Last Filed: 07/02/23 14:52> General Exam Limitations: no limitations General appearance: alert, in no apparent distress Head exam: Present: atraumatic, normocephalic, normal inspection Eye exam: Present: normal appearance, PERRL, EOMI. Absent: scleral icterus, conjunctival injection, periorbital swelling ENT exam: Present: normal exam, normal oropharynx, mucous membranes moist Neck exam: Present: normal inspection, full ROM. Absent: tenderness, meningismus, lymphadenopathy Respiratory exam: Present: normal lung sounds bilaterally. Absent: respiratory distress, wheezes, rales, rhonchi, stridor Cardiovascular Exam: Present: regular rate, normal rhythm, normal heart sounds. Absent: systolic murmur, diastolic murmur, rubs, gallop, clicks GI/Abdominal exam: Present: soft, normal bowel sounds. Absent: distended, tenderness, guarding, rebound, rigid Neurological exam: Present: alert Psychiatric exam: Present: depressed, flat affect <Deon Miramontes - Last Filed: 07/02/23 14:52> General appearance: alert, in no apparent distress Head exam: Present: atraumatic, normocephalic, normal inspection Eye exam: Present: normal appearance, PERRL, EOMI. Absent: scleral icterus, conjunctival injection, periorbital swelling ENT exam: Present: normal exam, mucous membranes moist Neck exam: Present: normal inspection. Absent: tenderness, meningismus, lymphadenopathy Respiratory exam: Present: normal lung sounds bilaterally. Absent: respiratory distress, wheezes, rales, rhonchi, stridor Cardiovascular Exam: Present: regular rate, normal rhythm, normal heart sounds. Absent: systolic murmur, diastolic murmur, rubs, gallop, clicks GI/Abdominal exam: Present: soft, normal bowel sounds. Absent: distended, tenderness, guarding, rebound, rigid Extremities exam: Present: normal inspection, full ROM, normal capillary refill. Absent: tenderness, pedal edema, joint swelling, calf tenderness Back exam: Present: normal inspection Neurological exam: Present: alert, oriented X3, CN II-XII intact Psychiatric exam: Present: normal affect, normal mood Skin exam: Present: warm, dry, intact, normal color. Absent: rash <Rory Ch - Last Filed: 07/02/23 17:18> Course <Rory Ch - Last Filed: 07/02/23 17:18> Vital Signs 07/02/23 07/03/23 07/03/23 11:12 06:38 07:38 Temperature 97.7 F 98.6 F Pulse Rate 91 132 H 93 Respiratory 18 19 17 Rate Blood Pressure 131/86 140/84 117/73 O2 Sat by Pulse 95 97 95 Oximetry - Reevaluation(s) Reevaluation #1: 07/02/23 17:19 Medical records reviewed (Rory Ch) Reevaluation #2: 07/02/23 17:19 Medical clear for psychiatric evaluation (Rory Ch) EKG Findings - EKG Comments: EKG Findings:: EKG demonstrates sinus rhythm at a rate of 79. IN interval 168. QRS 81. QTC of 420. No acute ST segment elevations or depressions <Annette Lott - Last Filed: 07/03/23 08:07> Medical Decision Making - Lab Data Result diagrams: 07/02/23 12:10 07/02/23 12:10 <Deon Miramontes - Last Filed: 07/02/23 14:52> - Lab Data Result diagrams: 07/02/23 12:10 07/02/23 12:10 <Rory Ch - Last Filed: 07/02/23 17:18> - Lab Data Result diagrams: 07/02/23 12:10 07/02/23 12:10 <Annette Lott - Last Filed: 07/03/23 08:07> - Medical Decision Making Was pt. sent in by a medical professional or institution (, PA, BURRER MACHINE, urgent care, hospital, or senior care...) When possible be specific @ -PCPs office Did you speak to anyone other than the patient for history (EMS, parent, family, police, friend...)? What history was obtained from this source @ -No Did you review nursing and triage notes (agree or disagree)? Why? @ -I reviewed and agree with nursing and triage notes Were old charts reviewed (outside hosp., previous admission, EMS record, old EKG, old radiological studies, urgent care reports/EKG's, senior care records)? Report findings @ -No old charts were reviewed Differential Diagnosis (chest pain, altered mental status, abdominal pain women, abdominal pain men, vaginal bleeding, weakness, fever, dyspnea, syncope, headache, dizziness, GI bleed, back pain, seizure, CVA, palpatations, mental health, musculoskeletal)? @ -Differential Mental Health Depression, anxiety, bipolar, psychosis, schizophrenia, borderline personality, situational depression, adjustment disorder, behavioral disorder, brain tumor, malingering, substance abuse, encephalopathy, medication reaction, dementia, hypothyroidism, degenerative neurologic disorder, lupus.... This is not meant to be all-inclusive list EKG interpreted by me (3pts min.). @ -None X-rays interpreted by me (1pt min.). @ -None done CT interpreted by me (1pt min.). @ -None done U/S interpreted by me (1pt. min.). @ -None done What testing was considered but not performed or refused? (CT, X-rays, U/S, labs)? Why? @ -None What meds were considered but not given or refused? Why? @ -None Did you discuss the management of the patient with other professionals (professionals i.e. , PA, BURRER MACHINE, lab, RT, psych nurse, manager social work, section 8 property manager, teacher, investment officer, case finisher)? Give summary @ -[EPS to evaluate the patient Was smoking cessation discussed for >3mins.? @ -No Was critical care preformed (if so, how long)? @ -No Were there social determinants of health that impacted care today? How? (Homelessness, low income, unemployed, alcoholism, drug addiction, trans portation, low edu. Level, literacy, decrease access to med. care, senior living, rehab)? @ -No Was there de-escalation of care discussed even if they declined (Discuss DNR or withdrawal of care, Hospice)? DNR status @ -No What co-morbidities impacted this encounter? (DM, HTN, Smoking, COPD, CAD, Cancer, CVA, ARF, Chemo, Hep., AIDS, mental health diagnosis, sleep apnea, morbid obesity)? @ -Depression, multiple suicide attempts Was patient admitted / discharged? Hospital course, mention meds given and route, prescriptions, significant lab abnormalities, going to OR and other pertinent info. @ -Patient's care transferred to Dr. Ch Pending EPS evaluation. Undiagnosed new problem with uncertain prognosis? @ -No Drug Therapy requiring intensive monitoring for toxicity (Heparin, Nitro, Insulin, Cardizem)? @ -No Were any procedures done? @ -No (Deon Mriamontes) 63 female seen in however psychiatry, patient will be admitted for psychiatric evaluation and treatment (Rory Ch) - Lab Data Lab Results 07/02/23 07/02/23 07/02/23 Range/Units 12:10 12:10 12:10 WBC 8.0 (3.8-10.6) k/uL RBC 4.69 (3.80-5.40) m/uL Hgb 14.4 (11.4-16.0) gm/dL Hct 43.5 (34.0-46.0) % MCV 92.6 (80.0-100.0) fL MCH 30.6 (25.0-35.0) pg MCHC 33.0 (31.0-37.0) g/dL RDW 13.3 (11.5-15.5) % Plt Count 283 (150-450) k/uL MPV 8.0 Neutrophils % 65 % Lymphocytes % 26 % Monocytes % 7 % Eosinophils % 0 % Basophils % 0 % Neutrophils # 5.2 (1.3-7.7) k/uL Lymphocytes # 2.1 (1.0-4.8) k/uL Monocytes # 0.6 (0-1.0) k/uL Eosinophils # 0.0 (0-0.7) k/uL Basophils # 0.0 (0-0.2) k/uL Sodium 139 (137-145) mmol/L Potassium 4.1 (3.5-5.1) mmol/L Chloride 106 (98-107) mmol/L Carbon Dioxide 23 (22-30) mmol/L Anion Gap 10 mmol/L BUN 14 (7-17) mg/dL Creatinine 0.90 (0.52-1.04) mg/dL Est GFR (CKD-EPI)AfAm 79 (>60 ml/min/1.73 sqM) Est GFR (CKD-EPI)NonAf 69 (>60 ml/min/1.73 sqM) Glucose 101 H (74-99) mg/dL Calcium 10.1 (8.4-10.2) mg/dL Total Bilirubin 0.4 (0.2-1.3) mg/dL AST 21 (14-36) U/L ALT 19 (4-34) U/L Alkaline Phosphatase 67 (38-126) U/L Total Protein 6.8 (6.3-8.2) g/dL Albumin 4.1 (3.5-5.0) g/dL TSH 0.942 (0.465-4.680) mIU/L Urine Color Urine Appearance (Clear) Urine pH (5.0-8.0) Ur Specific [place] (1.001-1.035) Urine Protein (Negative) Urine Glucose (UA) (Negative) Urine Ketones (Negative) Urine Blood (Negative) Urine Nitrite (Negative) Urine Bilirubin (Negative) Urine Urobilinogen (<2.0) mg/dL Ur Leukocyte Esterase (Negative) Urine RBC (0-5) /hpf Urine WBC (0-5) /hpf Ur Squamous Epith Cells (0-4) /hpf Amorphous Sediment (None) /hpf Urine Bacteria (None) /hpf Hyaline Casts (0-2) /lpf Urine Mucus (None) /hpf Urine Opiates Screen (NotDetected) Ur Oxycodone Screen (NotDetected) Urine Methadone Screen (NotDetected) Ur Propoxyphene Screen (NotDetected) Ur Barbiturates Screen (NotDetected) U Tricyclic Antidepress (NotDetected) Ur Phencyclidine Scrn (NotDetected) Ur Amphetamines Screen (NotDetected) U Methamphetamines Scrn (NotDetected) U Benzodiazepines Scrn (NotDetected) Urine Cocaine Screen (NotDetected) U Marijuana (THC) Screen (NotDetected) Coronavirus (PCR) (Not Detectd) 07/02/23 07/03/23 Range/Units 15:35 01:55 WBC (3.8-10.6) k/uL RBC (3.80-5.40) m/uL Hgb (11.4-16.0) gm/dL Hct (34.0-46.0) % MCV (80.0-100.0) fL MCH (25.0-35.0) pg MCHC (31.0-37.0) g/dL RDW (11.5-15.5) % Plt Count (150-450) k/uL MPV Neutrophils % % Lymphocytes % % Monocytes % % Eosinophils % % Basophils % % Neutrophils # (1.3-7.7) k/uL Lymphocytes # (1.0-4.8) k/uL Monocytes # (0-1.0) k/uL Eosinophils # (0-0.7) k/uL Basophils # (0-0.2) k/uL Sodium (137-145) mmol/L Potassium (3.5-5.1) mmol/L Chloride (98-107) mmol/L Carbon Dioxide (22-30) mmol/L Anion Gap mmol/L BUN (7-17) mg/dL Creatinine (0.52-1.04) mg/dL Est GFR (CKD-EPI)AfAm (>60 ml/min/1.73 sqM) Est GFR (CKD-EPI)NonAf (>60 ml/min/1.73 sqM) Glucose (74-99) mg/dL Calcium (8.4-10.2) mg/dL Total Bilirubin (0.2-1.3) mg/dL AST (14-36) U/L ALT (4-34) U/L Alkaline Phosphatase (38-126) U/L Total Protein (6.3-8.2) g/dL Albumin (3.5-5.0) g/dL TSH (0.465-4.680) mIU/L Urine Color Light Yellow Urine Appearance Cloudy H (Clear) Urine pH 6.0 (5.0-8.0) Ur Specific [place] 1.017 (1.001-1.035) Urine Protein Trace H (Negative) Urine Glucose (UA) Negative (Negative) Urine Ketones 1+ H (Negative) Urine Blood Negative (Negative) Urine Nitrite Negative (Negative) Urine Bilirubin Negative (Negative) Urine Urobilinogen <2.0 (<2.0) mg/dL Ur Leukocyte Esterase Large H (Negative) Urine RBC 9 H (0-5) /hpf Urine WBC 153 H (0-5) /hpf Ur Squamous Epith Cells 23 H (0-4) /hpf Amorphous Sediment Few H (None) /hpf Urine Bacteria Occasional H (None) /hpf Hyaline Casts 2 (0-2) /lpf Urine Mucus Few H (None) /hpf Urine Opiates Screen Not Detected (NotDetected) Ur Oxycodone Screen Not Detected (NotDetected) Urine Methadone Screen Not Detected (NotDetected) Ur Propoxyphene Screen Not Detected (NotDetected) Ur Barbiturates Screen Not Detected (NotDetected) U Tricyclic Antidepress Not Detected (NotDetected) Ur Phencyclidine Scrn Not Detected (NotDetected) Ur Amphetamines Screen Not Detected (NotDetected) U Methamphetamines Scrn Not Detected (NotDetected) U Benzodiazepines Scrn Detected H (NotDetected) Urine Cocaine Screen Not Detected (NotDetected) U Marijuana (THC) Screen Detected H (NotDetected) Coronavirus (PCR) Not Detected (Not Detectd) Disposition <Deon Miramontes - Last Filed: 07/02/23 14:52> Is patient prescribed a controlled substance at d/c from ED?: No <Rory Ch - Last Filed: 07/02/23 17:18> <Annette Lott A - Last Filed: 07/03/23 08:07> Clinical Impression: Depression, Acute anxiety, Suicidal ideation, Adjustment reaction of adult life Disposition: TRANSFER TO PSYCH HOSP/UNIT Condition: Fair Referrals: Rhonda Ceja DO [Primary Care Provider] - 1-2 days
[2023-07-02 12:25] LABS: Basophils % (A) 0 %; Eosinophils % (A) 0 %; HCT 43.5 % (34.0-46.0); HGB 14.4 gm/dL (11.4-16.0); Lymphocytes # (A) 2.1 k/uL (1.0-4.8); Lymphocytes % (A) 26 %; MCH 30.6 pg (25.0-35.0); MCV 92.6 fL (80.0-100.0); Monocytes # (A) 0.6 k/uL (0-1.0); Monocytes % (A) 7 %; Neutrophils # (A) 5.2 k/uL (1.3-7.7); Neutrophils % (A) 65 %; Platelet Count 283 k/uL (150-450); RBC 4.69 m/uL (3.80-5.40); RDW 13.3 % (11.5-15.5)
[2023-07-02 12:43] LABS: ALT 19 U/L (4-34); AST 21 U/L (14-36); African American GFR (CKD) 79 (>60 ml/min/1.73 sqM); Albumin 4.1 g/dL (3.5-5.0); Alkaline Phosphatase 67 U/L (38-126); Anion Gap 10 mmol/L; Blood Urea Nitrogen 14 mg/dL (7-17); Calcium 10.1 mg/dL (8.4-10.2); Carbon Dioxide 23 mmol/L (22-30); Chloride 106 mmol/L (98-107); Glucose 101 mg/dL (74-99); Non-African American GFR(CKD) 69 (>60 ml/min/1.73 sqM); Potassium 4.1 mmol/L (3.5-5.1); Sodium 139 mmol/L (137-145); Total Bilirubin 0.4 mg/dL (0.2-1.3); Total Protein 6.8 g/dL (6.3-8.2)
[2023-07-02] MEDS ORDERED: LORazepam 1 MG TAB PO STA (18:33)
[2023-07-03] MEDS ORDERED: LORazepam 2 MG/ML INJ IM STA ×2 (01:31→06:05)
[2023-07-03 02:21] LABS: Amorphous Sediment,Urine Few /hpf; Appearance,Urine Cloudy (Clear); Bacteria,Urine Occasional /hpf; Bilirubin,Urine Negative (Negative); Blood,Urine Negative (Negative); Color,Urine Light Yellow; Glucose,Urine (UA) Negative (Negative); Hyaline Casts,Urine 2 /lpf (0-2); Ketones,Urine 1+ (Negative); Leukocyte Esterase,Urine Large (Negative); Mucus,Urine Few /hpf; Nitrite,Urine Negative (Negative); Protein,Urine Trace (Negative); RBC,Urine 9 /hpf (0-5); Specific Gravity,Urine 1.017 (1.001-1.035); Squamous Epithelial Cell,Urine 23 /hpf (0-4); Urobilinogen,Urine <2.0 mg/dL (<2.0); WBC,Urine 153 /hpf (0-5)
[2023-07-03 02:31] LABS: Amphetamine Screen,Urine Not Detected (NotDetected); Barbiturate Screen,Urine Not Detected (NotDetected); Benzodiazepines Screen,Urine Detected (NotDetected); Cocaine Screen,Urine Not Detected (NotDetected); Methadone Screen, Urine Not Detected (NotDetected); Opiate Screen,Urine Not Detected (NotDetected); Oxycodone Screen, Urine Not Detected (NotDetected); Phencyclidine Screen,Urine Not Detected (NotDetected); Tricyclic Antidepressant,Urine Not Detected (NotDetected); Urn Cannabinoid Scrn Detected (NotDetected)
[2023-07-03] MEDS ORDERED: ACETAMINOPHEN TAB 500 MG TAB PO STA (13:48)
[2023-07-03] MEDS ORDERED: PALIPERIDONE IM 234 MG/1.5 ML SYG IM ONE (16:00)
[2023-07-03] MEDS ORDERED: LORazepam 1 MG TAB PO STA (20:01)
[2023-07-03] MEDS ORDERED: ZIPRASIDONE 20 MG VIAL IM ONE (20:15)
[2023-07-03] MEDS ORDERED: ZIPRASIDONE 20 MG VIAL IM PRN (20:15)
[2023-07-04 05:56] VITALS: TEMP 99
[2023-07-04] MEDS ORDERED: LORazepam 1 MG TAB PO STA (08:01)
[2023-07-04 08:58] VITALS: BP 110/87; PULSE 88; RESP 18
--- NOTE | 2023-07-08 20:03 | ED ---
Medical Decision Making - Medical Decision Making This is a addendum to the prior chart regards to restraints and patient needing physical restraints - Lab Data Result diagrams: 07/02/23 12:10 07/02/23 12:10 Lab Results 07/02/23 07/02/23 07/02/23 Range/Units 12:10 12:10 12:10 WBC 8.0 (3.8-10.6) k/uL RBC 4.69 (3.80-5.40) m/uL Hgb 14.4 (11.4-16.0) gm/dL Hct 43.5 (34.0-46.0) % MCV 92.6 (80.0-100.0) fL MCH 30.6 (25.0-35.0) pg MCHC 33.0 (31.0-37.0) g/dL RDW 13.3 (11.5-15.5) % Plt Count 283 (150-450) k/uL MPV 8.0 Neutrophils % 65 % Lymphocytes % 26 % Monocytes % 7 % Eosinophils % 0 % Basophils % 0 % Neutrophils # 5.2 (1.3-7.7) k/uL Lymphocytes # 2.1 (1.0-4.8) k/uL Monocytes # 0.6 (0-1.0) k/uL Eosinophils # 0.0 (0-0.7) k/uL Basophils # 0.0 (0-0.2) k/uL Sodium 139 (137-145) mmol/L Potassium 4.1 (3.5-5.1) mmol/L Chloride 106 (98-107) mmol/L Carbon Dioxide 23 (22-30) mmol/L Anion Gap 10 mmol/L BUN 14 (7-17) mg/dL Creatinine 0.90 (0.52-1.04) mg/dL Est GFR (CKD-EPI)AfAm 79 (>60 ml/min/1.73 sqM) Est GFR (CKD-EPI)NonAf 69 (>60 ml/min/1.73 sqM) Glucose 101 H (74-99) mg/dL Calcium 10.1 (8.4-10.2) mg/dL Total Bilirubin 0.4 (0.2-1.3) mg/dL AST 21 (14-36) U/L ALT 19 (4-34) U/L Alkaline Phosphatase 67 (38-126) U/L Total Protein 6.8 (6.3-8.2) g/dL Albumin 4.1 (3.5-5.0) g/dL TSH 0.942 (0.465-4.680) mIU/L Urine Color Urine Appearance (Clear) Urine pH (5.0-8.0) Ur Specific [place] (1.001-1.035) Urine Protein (Negative) Urine Glucose (UA) (Negative) Urine Ketones (Negative) Urine Blood (Negative) Urine Nitrite (Negative) Urine Bilirubin (Negative) Urine Urobilinogen (<2.0) mg/dL Ur Leukocyte Esterase (Negative) Urine RBC (0-5) /hpf Urine WBC (0-5) /hpf Ur Squamous Epith Cells (0-4) /hpf Amorphous Sediment (None) /hpf Urine Bacteria (None) /hpf Hyaline Casts (0-2) /lpf Urine Mucus (None) /hpf Urine Opiates Screen (NotDetected) Ur Oxycodone Screen (NotDetected) Urine Methadone Screen (NotDetected) Ur Propoxyphene Screen (NotDetected) Ur Barbiturates Screen (NotDetected) U Tricyclic Antidepress (NotDetected) Ur Phencyclidine Scrn (NotDetected) Ur Amphetamines Screen (NotDetected) U Methamphetamines Scrn (NotDetected) U Benzodiazepines Scrn (NotDetected) Urine Cocaine Screen (NotDetected) U Marijuana (THC) Screen (NotDetected) Serum Alcohol mg/dL Coronavirus (PCR) (Not Detectd) 07/02/23 07/03/23 07/03/23 Range/Units 15:35 01:55 09:21 WBC (3.8-10.6) k/uL RBC (3.80-5.40) m/uL Hgb (11.4-16.0) gm/dL Hct (34.0-46.0) % MCV (80.0-100.0) fL MCH (25.0-35.0) pg MCHC (31.0-37.0) g/dL RDW (11.5-15.5) % Plt Count (150-450) k/uL MPV Neutrophils % % Lymphocytes % % Monocytes % % Eosinophils % % Basophils % % Neutrophils # (1.3-7.7) k/uL Lymphocytes # (1.0-4.8) k/uL Monocytes # (0-1.0) k/uL Eosinophils # (0-0.7) k/uL Basophils # (0-0.2) k/uL Sodium (137-145) mmol/L Potassium (3.5-5.1) mmol/L Chloride (98-107) mmol/L Carbon Dioxide (22-30) mmol/L Anion Gap mmol/L BUN (7-17) mg/dL Creatinine (0.52-1.04) mg/dL Est GFR (CKD-EPI)AfAm (>60 ml/min/1.73 sqM) Est GFR (CKD-EPI)NonAf (>60 ml/min/1.73 sqM) Glucose (74-99) mg/dL Calcium (8.4-10.2) mg/dL Total Bilirubin (0.2-1.3) mg/dL AST (14-36) U/L ALT (4-34) U/L Alkaline Phosphatase (38-126) U/L Total Protein (6.3-8.2) g/dL Albumin (3.5-5.0) g/dL TSH (0.465-4.680) mIU/L Urine Color Light Yellow Urine Appearance Cloudy H (Clear) Urine pH 6.0 (5.0-8.0) Ur Specific [place] 1.017 (1.001-1.035) Urine Protein Trace H (Negative) Urine Glucose (UA) Negative (Negative) Urine Ketones 1+ H (Negative) Urine Blood Negative (Negative) Urine Nitrite Negative (Negative) Urine Bilirubin Negative (Negative) Urine Urobilinogen <2.0 (<2.0) mg/dL Ur Leukocyte Esterase Large H (Negative) Urine RBC 9 H (0-5) /hpf Urine WBC 153 H (0-5) /hpf Ur Squamous Epith Cells 23 H (0-4) /hpf Amorphous Sediment Few H (None) /hpf Urine Bacteria Occasional H (None) /hpf Hyaline Casts 2 (0-2) /lpf Urine Mucus Few H (None) /hpf Urine Opiates Screen Not Detected (NotDetected) Ur Oxycodone Screen Not Detected (NotDetected) Urine Methadone Screen Not Detected (NotDetected) Ur Propoxyphene Screen Not Detected (NotDetected) Ur Barbiturates Screen Not Detected (NotDetected) U Tricyclic Antidepress Not Detected (NotDetected) Ur Phencyclidine Scrn Not Detected (NotDetected) Ur Amphetamines Screen Not Detected (NotDetected) U Methamphetamines Scrn Not Detected (NotDetected) U Benzodiazepines Scrn Detected H (NotDetected) Urine Cocaine Screen Not Detected (NotDetected) U Marijuana (THC) Screen Detected H (NotDetected) Serum Alcohol <10 mg/dL Coronavirus (PCR) Not Detected (Not Detectd) Disposition Clinical Impression: Depression, Acute anxiety, Suicidal ideation, Adjustment reaction of adult life Disposition: TRANSFER TO PSYCH HOSP/UNIT Condition: Fair Referrals: Rhonda Ceja DO [REFERRING] - 1-2 days Procedures - Restraint - Face to Face Restraint Occurrence 1 Patient's Immediate Situation: Endangers self safety, Endangers others' safety, Endangers staff safety, Violent behavior Patient's Reaction to the Intervention: Uncooperative, Angry Patient's Medical & Behavioral Condition: Anxious, Agitated Need to Continue or Terminate Restraint or Seclusion: Continue Face to Face Eval of Restraint Date: 07/03/23 Face to Face Eval of Restraint Time: 16:00
== END 2023-07-04 09:12 ==
LOC: EC 11:11 → SUPCPDRO 11:11 → EC 07-04 09:12
DX: R45.851 Suicidal ideations (principal); F43.22 Adjustment disorder with anxiety; F32.A Depression, unspecified; Z87.891 Personal history of nicotine dependence; F12.90 Cannabis use, unspecified, uncomplicated; Z88.8 Allergy status to other drugs, medicaments and biological substances; Z88.5 Allergy status to narcotic agent; Z20.822 Contact with and (suspected) exposure to COVID-19
CPT/HCPCS: 99285 ×2; 96372 ×5; 82075; 36415 ×2; 93005; 80053; 84443; 85025; 81001; 80306; 80320; 87635; J2060; J3486; J2426

== ENCOUNTER 2023-08-05 12:09 | Emergency (ER) | payer OTHER, MEDICARE ==
--- NOTE | 2023-08-05 14:35 | ED ---
General Adult HPI - General Source: patient, family, RN notes reviewed, old records reviewed Mode of arrival: ambulatory Limitations: no limitations <Venkat Thornton - Last Filed: 08/05/23 19:12> <Noé Adame - Last Filed: 08/06/23 09:50> - General Chief complaint: Psychiatric Symptoms Stated complaint: alterd mental state Time Seen by Provider: 08/05/23 14:35 - History of Present Illness Initial comments: 63 yo female sent in for mental health evaluation stating that she wants to commit suicide. The history is very limited the patient has very soft voice and is reluctant to answer questions. (Venkat Thornton) - Related Data Home Medications Medication Instructions Recorded Confirmed Benztropine Mesylate [Cogentin] 1 mg PO BID 07/03/23 08/05/23 Escitalopram Oxalate [Lexapro] 10 mg PO DAILY@0700 07/03/23 08/05/23 hydrOXYzine HCL [Atarax] 25 mg PO TID@0900,1300,1700 07/03/23 08/05/23 Paliperidone IM [Invega Sustenna] 156 mg IM Q28D 08/05/23 08/05/23 traZODone HCL [Desyrel] 100 mg PO HS 08/05/23 08/05/23 Allergies Allergy/AdvReac Type Severity Reaction Status Date / Time adhesive tape Allergy Rash/Hives Verified 08/05/23 23:22 chlorpromazine Allergy Anaphylaxis Verified 08/05/23 23:22 [From Thorazine] codeine Allergy Rash/Hives Verified 08/05/23 23:22 haloperidol [From Haldol] Allergy Rash/tardive Verified 08/05/23 23:22 dyskinesia nicotine [From Nicoderm CQ] Allergy Rash/Hives Verified 08/05/23 23:22 Review of Systems ROS Other: All systems not noted in ROS Statement are negative. <Venkat Thornton - Last Filed: 08/05/23 19:12> ROS Other: All systems not noted in ROS Statement are negative. <Noé Adame - Last Filed: 08/06/23 09:50> ROS Statement: Those systems with pertinent positive or pertinent negative responses have been documented in the HPI. Past Medical History Past Medical History: No Reported History History of Any Multi-Drug Resistant Organisms: None Reported Past Surgical History: Section, Cholecystectomy, Hysterectomy, Orthopedic Surgery, Tubal Ligation Additional Past Surgical History / Comment(s): PILONIADAL CYSTECTOMY. RT ROTATOR CUFF REPAIR Past Anesthesia/Blood Transfusion Reactions: Motion Sickness Past Psychological History: Depression Smoking Status: Former smoker Past Alcohol Use History: None Reported Past Drug Use History: Marijuana - Past Family History Mother Family Medical History: No Reported History <Venkat Thornton - Last Filed: 08/05/23 19:12> General Exam Limitations: no limitations General appearance: alert, in no apparent distress Head exam: Present: atraumatic, normocephalic Eye exam: Present: normal appearance, PERRL Respiratory exam: Present: normal lung sounds bilaterally. Absent: respiratory distress, wheezes Cardiovascular Exam: Present: regular rate, normal rhythm GI/Abdominal exam: Absent: distended Extremities exam: Present: normal inspection, normal capillary refill Neurological exam: Present: alert, oriented X3, CN II-XII intact. Absent: motor sensory deficit Psychiatric exam: Present: flat affect, suicidal ideation Skin exam: Present: warm, dry, intact. Absent: cyanosis, diaphoretic <Venkat Thonrton - Last Filed: 08/05/23 19:12> Course Vital Signs 08/05/23 08/05/23 08/06/23 12:13 22:09 06:40 Temperature 98 F 98.7 F Pulse Rate 100 83 77 Respiratory 20 16 16 Rate Blood Pressure 155/78 108/64 126/77 O2 Sat by Pulse 97 98 97 Oximetry 08/06/23 09:28 Temperature 97.8 F Pulse Rate 77 Respiratory 16 Rate Blood Pressure 106/65 O2 Sat by Pulse 99 Oximetry Procedures - Restraint - Face to Face Restraint Occurrence 1 Patient's Immediate Situation: Endangers self safety, Endangers others' safety Patient's Reaction to the Intervention: Angry Patient's Medical & Behavioral Condition: Awake, Alert Need to Continue or Terminate Restraint or Seclusion: Continue Face to Face Eval of Restraint Date: 08/06/23 Face to Face Eval of Restraint Time: 07:41 <Noé Adame - Last Filed: 08/06/23 09:50> Medical Decision Making <Venkat Thornton - Last Filed: 08/05/23 19:12> - Lab Data Result diagrams: 08/05/23 21:43 08/05/23 21:43 <Syed Adamessyakelin Parkinson - Last Filed: 08/06/23 09:50> - Medical Decision Making Was pt. sent in by a medical professional or institution (, [employer], [employer] SL[employer] COVER INSTALLER, urgent care, hospital, or group home...) When possible be specific @ -No Did you speak to anyone other than the patient for history (EMS, parent, family, police, friend...)? What history was obtained from this source @ -No Did you review nursing and triage notes (agree or disagree)? Why? @ -I reviewed and agree with nursing and triage notes Were old charts reviewed (outside hosp., previous admission, EMS record, old EKG, old radiological studies, urgent care reports/EKG's, group home records)? Report findings @ -No old charts were reviewed Differential Diagnosis (chest pain, altered mental status, abdominal pain women, abdominal pain men, vaginal bleeding, weakness, fever, dyspnea, syncope, headache, dizziness, GI bleed, back pain, seizure, CVA, palpatations, mental health, musculoskeletal)? @ Differential Mental Health Depression, anxiety, bipolar, psychosis, schizophrenia, borderline personality, situational depression, adjustment disorder, behavioral disorder, brain tumor, malingering, substance abuse, encephalopathy, medication reaction, dementia, hypothyroidism, degenerative neurologic disorder, lupus.... This is not meant to be all-inclusive list EKG interpreted by me (3pts min.). @Sinus rhythm rate of 78, WV interval 174, QRS duration 85, QTC [address] segment changes. X-rays interpreted by me (1pt min.). @ -None done CT interpreted by me (1pt min.). @ -None done U/S interpreted by me (1pt. min.). @ -None done What testing was considered but not performed or refused? (CT, X-rays, U/S, labs)? Why? @ -None What meds were considered but not given or refused? Why? @ -None Did you discuss the management of the patient with other professionals (professionals i.e. , [employer], [employer] SL[employer] COVER INSTALLER, lab, RT, psych nurse, psychotherapist social worker, bottom loader, teacher, ecological technical officer, senior case manager)? Give summary @ -Patient evaluated by EPS and will require inpatient psychiatric care Was smoking cessation discussed for >3mins.? @ -No Was critical care preformed (if so, how long)? @ -No Were there social determinants of health that impacted care today? How? (Homelessness, low income, unemployed, alcoholism, drug addiction, transportation, low edu. Level, literacy, decrease access to med. care, alf, rehab)? @ -No Was there de-escalation of care discussed even if they declined (Discuss DNR or withdrawal of care, Hospice)? DNR status @ -No What co-morbidities impacted this encounter? (DM, HTN, Smoking, COPD, CAD, Cancer, CVA, ARF, Chemo, Hep., AIDS, mental health diagnosis, sleep apnea, morbid obesity)? @ -[Depression Was patient admitted / discharged? Hospital course, mention meds given and route, prescriptions, significant lab abnormalities, going to OR and other pertinent info. @Patient medically cleared and evaluated by EPS, will be transferred for further evaluation treatment. I completed a clinical certification on this patient. Undiagnosed new problem with uncertain prognosis? @ -No Drug Therapy requiring intensive monitoring for toxicity (Heparin, Nitro, Insulin, Cardizem)? @ -No Were any procedures done? @ -No Diagnosis/symptom? @ -[Depression, suicidal ideation Acute, or Chronic, or Acute on Chronic? @ -Acute Uncomplicated (without systemic symptoms) or Complicated (systemic symptoms)? @ -default Side effects of treatment? @ -No Exacerbation, Progression, or Severe Exacerbation? @ -No Poses a threat to life or bodily function? How? (Chest pain, [place], [place], pneumonia, PE, COPD, DKA, ARF, appy, cholecystitis, CVA, Diverticulitis, Homicidal, Suicidal, threat to staff... and all critical care pts) @ -YES, risk of self-harm (Venkat Thornton) - Lab Data Lab Results 08/05/23 08/05/23 08/05/23 Range/Units 17:41 17:41 17:41 WBC (3.8-10.6) k/uL RBC (3.80-5.40) m/uL Hgb (11.4-16.0) gm/dL Hct (34.0-46.0) % MCV (80.0-100.0) fL MCH (25.0-35.0) pg MCHC (31.0-37.0) g/dL RDW (11.5-15.5) % Plt Count (150-450) k/uL MPV Neutrophils % % Lymphocytes % % Monocytes % % Eosinophils % % Basophils % % Neutrophils # (1.3-7.7) k/uL Lymphocytes # (1.0-4.8) k/uL Monocytes # (0-1.0) k/uL Eosinophils # (0-0.7) k/uL Basophils # (0-0.2) k/uL Sodium (137-145) mmol/L Potassium (3.5-5.1) mmol/L Chloride (98-107) mmol/L Carbon Dioxide (22-30) mmol/L Anion Gap mmol/L BUN (7-17) mg/dL Creatinine (0.52-1.04) mg/dL Est GFR (CKD-EPI)AfAm (>60 ml/min/1.73 sqM) Est GFR (CKD-EPI)NonAf (>60 ml/min/1.73 sqM) Glucose (74-99) mg/dL Calcium (8.4-10.2) mg/dL Total Bilirubin (0.2-1.3) mg/dL AST (14-36) U/L ALT (4-34) U/L Alkaline Phosphatase (38-126) U/L Total Protein (6.3-8.2) g/dL Albumin (3.5-5.0) g/dL TSH (0.465-4.680) mIU/L Urine Color Colorless Urine Appearance Cloudy H (Clear) Urine pH 6.5 (5.0-8.0) Ur Specific Mad[place] 1.012 (1.001-1.035) Urine Protein Negative (Negative) Urine Glucose (UA) Negative (Negative) Urine Ketones Negative (Negative) Urine Blood Negative (Negative) Urine Nitrite Negative (Negative) Urine Bilirubin Negative (Negative) Urine Urobilinogen <2.0 (<2.0) mg/dL Ur Leukocyte Esterase Large H (Negative) Urine RBC 3 (0-5) /hpf Urine WBC 7 H (0-5) /hpf Ur Squamous Epith Cells 8 H (0-4) /hpf Urine Bacteria Rare H (None) /hpf Urine Mucus Rare H (None) /hpf Urine Opiates Screen Not Detected (NotDetected) Ur Oxycodone Screen Not Detected (NotDetected) Urine Methadone Screen Not Detected (NotDetected) Ur Propoxyphene Screen Not Detected (NotDetected) Ur Barbiturates Screen Not Detected (NotDetected) U Tricyclic Antidepress Not Detected (NotDetected) Ur Phencyclidine Scrn Not Detected (NotDetected) Ur Amphetamines Screen Not Detected (NotDetected) U Methamphetamines Scrn Not Detected (NotDetected) U Benzodiazepines Scrn Not Detected (NotDetected) Urine Cocaine Screen Not Detected (NotDetected) U Marijuana (THC) Screen Detected H (NotDetected) SARS-CoV-2 (PCR) Not Detected (Not Detectd) 08/05/23 08/05/23 Range/Units 21:43 21:43 WBC 7.2 (3.8-10.6) k/uL RBC 4.55 (3.80-5.40) m/uL Hgb 14.1 (11.4-16.0) gm/dL Hct 42.2 (34.0-46.0) % MCV 92.7 (80.0-100.0) fL MCH 30.9 (25.0-35.0) pg MCHC 33.3 (31.0-37.0) g/dL RDW 13.2 (11.5-15.5) % Plt Count 248 (150-450) k/uL MPV 7.8 Neutrophils % 46 % Lymphocytes % 41 % Monocytes % 9 % Eosinophils % 2 % Basophils % 0 % Neutrophils # 3.3 (1.3-7.7) k/uL Lymphocytes # 2.9 (1.0-4.8) k/uL Monocytes # 0.6 (0-1.0) k/uL Eosinophils # 0.1 (0-0.7) k/uL Basophils # 0.0 (0-0.2) k/uL Sodium 137 (137-145) mmol/L Potassium 3.8 (3.5-5.1) mmol/L Chloride 106 (98-107) mmol/L Carbon Dioxide 23 (22-30) mmol/L Anion Gap 8 mmol/L BUN 14 (7-17) mg/dL Creatinine 0.96 (0.52-1.04) mg/dL Est GFR (CKD-EPI)AfAm 73 (>60 ml/min/1.73 sqM) Est GFR (CKD-EPI)NonAf 63 (>60 ml/min/1.73 sqM) Glucose 103 H (74-99) mg/dL Calcium 9.4 (8.4-10.2) mg/dL Total Bilirubin 0.5 (0.2-1.3) mg/dL AST 23 (14-36) U/L ALT 21 (4-34) U/L Alkaline Phosphatase 69 (38-126) U/L Total Protein 6.2 L (6.3-8.2) g/dL Albumin 3.8 (3.5-5.0) g/dL TSH 2.690 (0.465-4.680) mIU/L Urine Color Urine Appearance (Clear) Urine pH (5.0-8.0) Ur Specific Mad[place] (1.001-1.035) Urine Protein (Negative) Urine Glucose (UA) (Negative) Urine Ketones (Negative) Urine Blood (Negative) Urine Nitrite (Negative) Urine Bilirubin (Negative) Urine Urobilinogen (<2.0) mg/dL Ur Leukocyte Esterase (Negative) Urine RBC (0-5) /hpf Urine WBC (0-5) /hpf Ur Squamous Epith Cells (0-4) /hpf Urine Bacteria (None) /hpf Urine Mucus (None) /hpf Urine Opiates Screen (NotDetected) Ur Oxycodone Screen (NotDetected) Urine Methadone Screen (NotDetected) Ur Propoxyphene Screen (NotDetected) Ur Barbiturates Screen (NotDetected) U Tricyclic Antidepress (NotDetected) Ur Phencyclidine Scrn (NotDetected) Ur Amphetamines Screen (NotDetected) U Methamphetamines Scrn (NotDetected) U Benzodiazepines Scrn (NotDetected) Urine Cocaine Screen (NotDetected) U Marijuana (THC) Screen (NotDetected) SARS-CoV-2 (PCR) (Not Detectd) Disposition Is patient prescribed a controlled substance at d/c from ED?: No Time of Disposition: 19:14 - Out of Hospital Transfer - Req. Specs Out of Hospital Transfer - Requested Specifics: Psychiatric Non-ICU (Transferred for psychiatric care) <Venkat Thornton - Last Filed: 08/05/23 19:12> <Noé Adame - Last Filed: 08/06/23 09:50> Clinical Impression: Suicidal ideation, Depression Disposition: ADMITTED IP TO THIS HOSP Condition: Stable Referrals: [facility],Clinic [Primary Care Provider] - 1-2 days
[2023-08-05] MEDS ORDERED: LORazepam 1 MG TAB PO STA (16:43)
[2023-08-05 18:32] LABS: Amphetamine Screen,Urine Not Detected (NotDetected); Barbiturate Screen,Urine Not Detected (NotDetected); Benzodiazepines Screen,Urine Not Detected (NotDetected); Cocaine Screen,Urine Not Detected (NotDetected); Methadone Screen, Urine Not Detected (NotDetected); Opiate Screen,Urine Not Detected (NotDetected); Oxycodone Screen, Urine Not Detected (NotDetected); Phencyclidine Screen,Urine Not Detected (NotDetected); Tricyclic Antidepressant,Urine Not Detected (NotDetected); Urn Cannabinoid Scrn Detected (NotDetected)
[2023-08-05 20:08] LABS: Appearance,Urine Cloudy (Clear); Bacteria,Urine Rare /hpf; Bilirubin,Urine Negative (Negative); Blood,Urine Negative (Negative); Color,Urine Colorless; Glucose,Urine (UA) Negative (Negative); Ketones,Urine Negative (Negative); Leukocyte Esterase,Urine Large (Negative); Mucus,Urine Rare /hpf; Nitrite,Urine Negative (Negative); PH, Urine 6.5 (5.0-8.0); Protein,Urine Negative (Negative); RBC,Urine 3 /hpf (0-5); Specific Gravity,Urine 1.012 (1.001-1.035); Squamous Epithelial Cell,Urine 8 /hpf (0-4); Urobilinogen,Urine <2.0 mg/dL (<2.0); WBC,Urine 7 /hpf (0-5)
[2023-08-05 22:17] LABS: Basophils % (A) 0 %; Eosinophils # (A) 0.1 k/uL (0-0.7); Eosinophils % (A) 2 %; HCT 42.2 % (34.0-46.0); HGB 14.1 gm/dL (11.4-16.0); Lymphocytes # (A) 2.9 k/uL (1.0-4.8); Lymphocytes % (A) 41 %; MCH 30.9 pg (25.0-35.0); MCHC 33.3 g/dL (31.0-37.0); MCV 92.7 fL (80.0-100.0); Mean Platelet Volume 7.8; Monocytes # (A) 0.6 k/uL (0-1.0); Monocytes % (A) 9 %; Neutrophils # (A) 3.3 k/uL (1.3-7.7); Neutrophils % (A) 46 %; Platelet Count 248 k/uL (150-450); RBC 4.55 m/uL (3.80-5.40); RDW 13.2 % (11.5-15.5); WBC 7.2 k/uL (3.8-10.6)
[2023-08-05 22:23] LABS: ALT 21 U/L (4-34); AST 23 U/L (14-36); African American GFR (CKD) 73 (>60 ml/min/1.73 sqM); Albumin 3.8 g/dL (3.5-5.0); Alkaline Phosphatase 69 U/L (38-126); Anion Gap 8 mmol/L; Blood Urea Nitrogen 14 mg/dL (7-17); Calcium 9.4 mg/dL (8.4-10.2); Carbon Dioxide 23 mmol/L (22-30); Chloride 106 mmol/L (98-107); Glucose 103 mg/dL (74-99); Non-African American GFR(CKD) 63 (>60 ml/min/1.73 sqM); Potassium 3.8 mmol/L (3.5-5.1); Sodium 137 mmol/L (137-145); Total Bilirubin 0.5 mg/dL (0.2-1.3); Total Protein 6.2 g/dL (6.3-8.2)
[2023-08-06] MEDS ORDERED: LORazepam 1 MG TAB PO STA (06:07)
[2023-08-06 07:01] VITALS: PULSE 77
[2023-08-06] MEDS ORDERED: OLANZapine 10 MG VIAL IM STA (07:11)
[2023-08-06] MEDS ORDERED: BENZTROPINE MESYLATE 1 MG TAB PO SCH (09:00)
[2023-08-06] MEDS ORDERED: hydrOXYzine HCL 25 MG TAB PO SCH (09:00)
[2023-08-06] MEDS: ESCITALOPRAM 10 MG TAB PO SCH ×2 (09:01→09:29)
[2023-08-06] MEDS ORDERED: ONDANSETRON 4 MG TAB PO STA ×2 (09:02→14:19)
[2023-08-06 14:43] VITALS: BP 108/64; RESP 18; TEMP 98.2
[2023-08-06] MEDS ORDERED: traZODone HCL 100 MG TAB PO SCH (21:00)
== END 2023-08-06 14:31 | disposition other institution (70) ==
LOC: EC 12:09
DX: F32.A Depression, unspecified (principal); R45.851 Suicidal ideations; F12.90 Cannabis use, unspecified, uncomplicated; Z91.09 Other allergy status, other than to drugs and biological substances; Z88.5 Allergy status to narcotic agent; Z88.8 Allergy status to other drugs, medicaments and biological substances; Z20.822 Contact with and (suspected) exposure to COVID-19; Z87.891 Personal history of nicotine dependence
CPT/HCPCS: 36415; 80053; 80306; 81001; 82075; 84443; 85025; 87635; 93005; 96372; 99285

== ENCOUNTER 2023-11-05 11:04 | Emergency (ER) | payer OTHER, MEDICARE ==
[2023-11-05 11:39] VITALS: RESP 18
[2023-11-05] MEDS: LORazepam 0.5 MG TAB PO STA (12:19)
[2023-11-05 13:00] LABS: Amphetamine Screen,Urine Not Detected (NotDetected); Barbiturate Screen,Urine Not Detected (NotDetected); Benzodiazepines Screen,Urine Not Detected (NotDetected); Cocaine Screen,Urine Not Detected (NotDetected); Methadone Screen, Urine Not Detected (NotDetected); Opiate Screen,Urine Not Detected (NotDetected); Oxycodone Screen, Urine Not Detected (NotDetected); Phencyclidine Screen,Urine Not Detected (NotDetected); Tricyclic Antidepressant,Urine Not Detected (NotDetected); Urn Cannabinoid Scrn Detected (NotDetected)
--- NOTE | 2023-11-05 13:10 | ED ---
General Adult HPI - General Chief complaint: Psychiatric Symptoms Stated complaint: Mental health Time Seen by Provider: 11/05/23 11:16 Source: patient, RN notes reviewed, old records reviewed Mode of arrival: ambulatory Limitations: no limitations - History of Present Illness Initial comments: Patient is a 63-year-old female who presents emergency department for psychiatric evaluation. Clinical certificate completed by an outside provider at the [facility]. It is her psychiatrist. There is concern for suicidal ideations with a plan to attempt by overdosing on her medications. She has a history of borderline personality disorder and major depressive disorder. Dr. Foster completed the clinical certificate and called me and notified me of the patient's current state. Patient was brought in by police. She currently denies any complaints. States she does not like the [facility]. Denies suicidal ideations, times complaints. Denies homicidal ideations, intents, plans. Denies any hallucinations. Presents for further evaluation at this time. - Related Data Home Medications Medication Instructions Recorded Confirmed Benztropine Mesylate [Cogentin] 1 mg PO BID 07/03/23 11/05/23 Escitalopram Oxalate [Lexapro] 30 mg PO DAILY 07/03/23 11/05/23 Omeprazole [PriLOSEC] 20 mg PO DAILY 11/05/23 11/05/23 Paliperidone Palmitate [Invega 117 mg IM Q28D 11/05/23 11/05/23 Sustenna] Triamcinolone 0.025% Cream 1 applic TOPICAL BID 11/05/23 11/05/23 [Kenalog 0.025% Cream] Allergies Allergy/AdvReac Type Severity Reaction Status Date / Time adhesive tape Allergy Rash/Hives Verified 11/05/23 13:32 chlorpromazine Allergy Anaphylaxis Verified 11/05/23 13:32 [From Thorazine] codeine Allergy Rash/Hives Verified 11/05/23 13:32 haloperidol [From Haldol] Allergy Rash/tardive Verified 11/05/23 13:32 dyskinesia nicotine [From Nicoderm CQ] Allergy Rash/Hives Verified 11/05/23 13:32 Review of Systems ROS Statement: Those systems with pertinent positive or pertinent negative responses have been documented in the HPI. Review of Systems: CONST: Denies fever EYES: Denies blurry vision ENT: Denies nasal congestion C/V: Denies Chest pain RESP: Denies shortness of breath GI: Denies abdominal pain : Denies dysuria SKIN: Denies rash. MSK: Denies joint pain. NEURO: Denies headache ROS Other: All systems not noted in ROS Statement are negative. Past Medical History Past Medical History: No Reported History History of Any Multi-Drug Resistant Organisms: None Reported Past Surgical History: Section, Cholecystectomy, Hysterectomy, Orthopedic Surgery, Tubal Ligation Additional Past Surgical History / Comment(s): PILONIADAL CYSTECTOMY. RT ROT ATOR CUFF REPAIR Past Anesthesia/Blood Transfusion Reactions: Motion Sickness Past Psychological History: Depression Smoking Status: Former smoker Past Alcohol Use History: None Reported Past Drug Use History: Marijuana - Past Family History Mother Family Medical History: No Reported History General Exam - General Exam Comments Initial Comments: General: Appears in no acute distress. HEAD: Normal with no signs of head trauma. EYES: PERRLA, EOMI, conjunctiva normal, no discharge. ENT: Hearing grossly intact, normal oropharynx. RESPIRATORY: Clear breath sounds bilaterally. No wheezes, rales, or rhonchi. C/V: Regular rate and rhythm. S1 and S2 auscultated, no edema, peripheral pulses 2+ and intact throughout ABD: Abd is soft, nontender, nondistended EXT: Normal range of motion, no obvious deformity SKIN: No rashes or lesions observed on exposed skin. NEURO: Alert and oriented x 4. Limitations: no limitations Course Vital Signs 11/05/23 11/05/23 11:06 13:34 Temperature 98.1 F 97.5 F L Pulse Rate 107 H 87 Respiratory 18 18 Rate Blood Pressure 145/77 147/85 O2 Sat by Pulse 97 99 Oximetry Medical Decision Making - Medical Decision Making Was pt. sent in by a medical professional or institution (, PA, [employer], urgent care, hospital, or [facility]...) When possible be specific @ -No Did you speak to anyone other than the patient for history (EMS, parent, family, police, friend...)? What history was obtained from this source @ -No Did you review nursing and triage notes (agree or disagree)? Why? @ -I reviewed and agree with nursing and triage notes Were old charts reviewed (outside hosp., previous admission, EMS record, old EKG, old radiological studies, urgent care reports/EKG's, [facility] records)? Report findings @ -Old charts reviewed Differential Diagnosis (chest pain, altered mental status, abdominal pain women, abdominal pain men, vaginal bleeding, weakness, fever, dyspnea, syncope, headache, dizziness, GI bleed, back pain, seizure, CVA, palpatations, mental h ealth, musculoskeletal)? @ -Differential Mental Health Depression, anxiety, bipolar, psychosis, schizophrenia, borderline personality, situational depression, adjustment disorder, behavioral disorder, brain tumor, malingering, substance abuse, encephalopathy, medication reaction, dementia, hypothyroidism, degenerative neurologic disorder, lupus.... This is not meant to be all-inclusive list EKG interpreted by me (3pts min.). @ -None done X-rays interpreted by me (1pt min.). @ -None done CT interpreted by me (1pt min.). @ -None done U/S interpreted by me (1pt. min.). @ -None done What testing was considered but not performed or refused? (CT, X-rays, U/S, labs)? Why? @ -None What meds were considered but not given or refused? Why? @ -None Did you discuss the management of the patient with other professionals (professionals i.e. DrElsy, PA, [employer], lab, RT, psych nurse, social science manager, beet worker, teacher, lodge officer, shelter case manager)? Give summary @ -Discussed with patient psychiatrist at the [facility], matias foster. Recommended psychiatric evaluation. EPS notified of the consult. Was smoking cessation discussed for >3mins.? @ -No Was critical care preformed (if so, how long)? @ -No Were there social determinants of health that impacted care today? How? (Homelessness, low income, unemployed, alcoholism, drug addiction, transportation, low edu. Level, literacy, decrease access to med. care, skilled nursing, rehab)? @ -no Was there de-escalation of care discussed even if they declined (Discuss DNR or withdrawal of care, Hospice)? DNR status @ -No What co-morbidities impacted this encounter? (DM, HTN, Smoking, COPD, CAD, Cancer, CVA, ARF, Chemo, Hep., AIDS, mental health diagnosis, sleep apnea, morbid obesity)? @ -Borderline personality disorder, depression Was patient admitted / discharged? Hospital course, mention meds given and route, prescriptions, significant lab abnormalities, going to OR and other pertinent info. @ -Based on the patient's presentation and physical exam, patient presents emergency department for psychiatric evaluation. Was brought in by police. Clinical certificate completed by the patient's psychiatrist. Currently denies any complaints. Sitter ordered. Suicide precautions ordered. Vital signs are within acceptable limits. At this time, patient is medically cleared for evaluation by psychiatry. Disposition pending psychiatric evaluation. EPS notified of the consult. Patient evaluated by EPS. Cleared for discharge home. Patient does not meet inpatient criteria. Patient will be discharged home with a safety plan. Undiagnosed new problem with uncertain prognosis? @ -No Drug Therapy requiring intensive monitoring for toxicity (Heparin, Nitro, Insulin, Cardizem)? @ -No Were any procedures done? @ -No Diagnosis/symptom? @ -Encounter for psychiatric evaluation Acute, or Chronic, or Acute on Chronic? @ -Acute Uncomplicated (without systemic symptoms) or Complicated (systemic symptoms)? @ -Complicated Side effects of treatment? @ -No Exacerbation, Progression, or Severe Exacerbation? @ -No Poses a threat to life or bodily function? How? (Chest pain, [place], [place], pneumonia, PE, COPD, DKA, ARF, appy, cholecystitis, CVA, Diverticulitis, Homicidal, Suicidal, threat to staff... and all critical care pts) @ -Potentially - Lab Data Lab Results 11/05/23 Range/Units 11:26 Urine Opiates Screen Not Detected (NotDetected) Ur Oxycodone Screen Not Detected (NotDetected) Urine Methadone Screen Not Detected (NotDetected) Ur Barbiturates Screen Not Detected (NotDetected) U Tricyclic Antidepress Not Detected (NotDetected) Ur Phencyclidine Scrn Not Detected (NotDetected) Ur Amphetamines Screen Not Detected (NotDetected) U Methamphetamines Scrn Not Detected (NotDetected) U Benzodiazepines Scrn Not Detected (NotDetected) Urine Cocaine Screen Not Detected (NotDetected) U Marijuana (THC) Screen Detected H (NotDetected) Disposition Clinical Impression: Encounter for psychiatric assessment Disposition: HOME SELF-CARE Condition: Good Additional Instructions: follow safety plan Is patient prescribed a controlled substance at d/c from ED?: No Referrals: Rhonda Ceja, [Primary Care Provider] - 1-2 days Time of Disposition: 13:24
[2023-11-05 13:47] VITALS: BP 147/85; PULSE 87; TEMP 97.5
== END 2023-11-05 13:38 | disposition home or self-care (01) ==
LOC: EC 11:04
DX: Z00.8 Encounter for other general examination (principal); R45.851 Suicidal ideations; F32.9 Major depressive disorder, single episode, unspecified; F12.90 Cannabis use, unspecified, uncomplicated; Z87.891 Personal history of nicotine dependence; Z79.899 Other long term (current) drug therapy; Z91.09 Other allergy status, other than to drugs and biological substances; Z88.5 Allergy status to narcotic agent; Z88.8 Allergy status to other drugs, medicaments and biological substances
CPT/HCPCS: 80306; 82075; 99285

== ENCOUNTER 2023-11-24 10:47 | Inpatient (IN) | payer OTHER, MEDICARE ==
[2023-11-24 11:41] LABS: Basophils % (A) 0 %; Eosinophils % (A) 0 %; HCT 47.1 % (34.0-46.0); HGB 15.2 gm/dL (11.4-16.0); Lymphocytes # (A) 1.7 k/uL (1.0-4.8); Lymphocytes % (A) 19 %; MCH 30.5 pg (25.0-35.0); MCHC 32.2 g/dL (31.0-37.0); MCV 94.9 fL (80.0-100.0); Mean Platelet Volume 8.7; Monocytes # (A) 0.4 k/uL (0-1.0); Monocytes % (A) 5 %; Neutrophils % (A) 75 %; Platelet Count 278 k/uL (150-450); RBC 4.96 m/uL (3.80-5.40); WBC 9.3 k/uL (3.8-10.6)
[2023-11-24 11:49] LABS: INR 0.9 (<1.2)
[2023-11-24 11:57] LABS: Potassium 3.8 mmol/L (3.5-5.1)
[2023-11-24 11:58] LABS: ALT 19 U/L (4-34); AST 24 U/L (14-36); Acetaminophen <10.0 ug/mL; African American GFR (CKD) 76 (>60 ml/min/1.73 sqM); Albumin 4.3 g/dL (3.5-5.0); Alcohol <10 mg/dL; Alkaline Phosphatase 76 U/L (38-126); Anion Gap 7 mmol/L; Blood Urea Nitrogen 16 mg/dL (7-17); Calcium 9.9 mg/dL (8.4-10.2); Carbon Dioxide 22 mmol/L (22-30); Chloride 109 mmol/L (98-107); Glucose 185 mg/dL (74-99); Lipase 216 U/L (23-300); Non-African American GFR(CKD) 66 (>60 ml/min/1.73 sqM); Salicylate <1.0 mg/dL; Sodium 138 mmol/L (137-145); Total Bilirubin 0.3 mg/dL (0.2-1.3); Total Protein 6.8 g/dL (6.3-8.2)
[2023-11-24] MEDS: LORazepam 2 MG/ML INJ IV STA ×3 (13:14→15:59)
[2023-11-24] MEDS: ZIPRASIDONE 20 MG VIAL IM STA (13:25)
[2023-11-24] MEDS: SODIUM CHLORIDE 0.9% 1,000 ML IV STA (14:37)
--- NOTE | 2023-11-24 15:10 | ED ---
General Adult HPI - General Source: patient, RN notes reviewed, old records reviewed Mode of arrival: ambulatory Limitations: no limitations <Gregory Muir - Last Filed: 11/24/23 14:57> <Tawny Monaco - Last Filed: 11/24/23 19:07> - General Chief complaint: Psychiatric Symptoms Stated complaint: Overdose Time Seen by Provider: 11/24/23 10:59 - History of Present Illness Initial comments: Patient is a 63-year-old female with with past medical history remarkable for psychiatric illness. Has a history of psychiatric illness and has been evaluated in the past. States she called her psychiatrist while in the parking lot and overdosed on 30 to 40 tablets of unknown dose of Zyprexa. States it was a suicide attempt. History of borderline personality disorder as well as major depressive disorder. Declines any polysubstance abuse other than marijuana use. Currently has no acute complaints. Does endorse taking his medications at approximately 10 AM this morning. Presents for further evaluation. (Gregory Muir) - Related Data Home Medications Medication Instructions Recorded Confirmed Benztropine Mesylate [Cogentin] 1 mg PO BID 07/03/23 11/05/23 Escitalopram Oxalate [Lexapro] 30 mg PO DAILY 07/03/23 11/05/23 Omeprazole [PriLOSEC] 20 mg PO DAILY 11/05/23 11/05/23 Paliperidone Palmitate [Invega 117 mg IM Q28D 11/05/23 11/05/23 Sustenna] Triamcinolone 0.025% Cream 1 applic TOPICAL BID 11/05/23 11/05/23 [Kenalog 0.025% Cream] Allergies Allergy/AdvReac Type Severity Reaction Status Date / Time adhesive tape Allergy Rash/Hives Verified 11/05/23 13:32 chlorpromazine Allergy Anaphylaxis Verified 11/05/23 13:32 [From Thorazine] codeine Allergy Rash/Hives Verified 11/05/23 13:32 haloperidol [From Haldol] Allergy Rash/tardive Verified 11/05/23 13:32 dyskinesia nicotine [From Nicoderm CQ] Allergy Rash/Hives Verified 11/05/23 13:32 Review of Systems ROS Other: All systems not noted in ROS Statement are negative. <Gregory Muir - Last Filed: 11/24/23 14:57> ROS Other: All systems not noted in ROS Statement are negative. <Tawny Monaco Shauna - Last Filed: 11/24/23 19:07> ROS Statement: Those systems with pertinent positive or pertinent negative responses have been documented in the HPI. Review of Systems: CONST: Denies fever EYES: Denies blurry vision ENT: Denies nasal congestion C/V: Denies Chest pain RESP: Denies shortness of breath GI: Denies abdominal pain : Denies dysuria SKIN: Denies rash. MSK: Denies joint pain. NEURO: Denies headache (Gregory Muir) Past Medical History Past Medical History: No Reported History History of Any Multi-Drug Resistant Organisms: None Reported Past Surgical History: Section, Cholecystectomy, Hysterectomy, Orthopedic Surgery, Tubal Ligation Additional Past Surgical History / Comment(s): PILONIADAL CYSTECTOMY. RT ROTATOR CUFF REPAIR Past Anesthesia/Blood Transfusion Reactions: Motion Sickness Past Psychological History: Depression Smoking Status: Former smoker Past Alcohol Use History: None Reported Past Drug Use History: Marijuana - Past Family History Mother Family Medical History: No Reported History <Gregory Muir - Last Filed: 11/24/23 14:57> General Exam Limitations: no limitations <Gregory Muir - Last Filed: 11/24/23 14:57> - General Exam Comments Initial Comments: General: Appears in no acute distress. HEAD: Normal with no signs of head trauma. EYES: PERRLA, EOMI, conjunctiva normal, no discharge. ENT: Hearing grossly intact, normal oropharynx. RESPIRATORY: Clear breath sounds bilaterally. No wheezes, rales, or rhonchi. C/V: Regular rate and rhythm. S1 and S2 auscultated, no edema, peripheral pulses 2+ and intact throughout ABD: Abd is soft, nontender, nondistended EXT: Normal range of motion, no obvious deformity SKIN: No rashes or lesions observed on exposed skin. NEURO: Alert and oriented x 4. Cranial nerves II-XII intact. No focal sensory or strength deficits. (Gregory Muir) Course Vital Signs 11/24/23 11/24/23 11/24/23 10:48 12:43 13:40 Temperature 98.7 F Pulse Rate 113 H Respiratory 18 Rate Blood Pressure 165/96 161/98 207/92 O2 Sat by Pulse 98 Oximetry 11/24/23 11/24/23 14:24 15:40 Temperature Pulse Rate 136 H 111 H Respiratory 20 Rate Blood Pressure 159/98 151/81 O2 Sat by Pulse Oximetry Medical Decision Making - Lab Data Result diagrams: 11/24/23 11:27 11/24/23 11:27 - EKG Data -: EKG Interpreted by Me <Gregory Muir - Last Filed: 11/24/23 14:57> - Lab Data Result diagrams: 11/24/23 11:27 11/24/23 11:27 <Tawny Monaco - Last Filed: 11/24/23 19:07> - Medical Decision Making Was pt. sent in by a medical professional or institution (, PA, GAUGER DELIVERY, urgent care, hospital, or detention...) When possible be specific @ -No Did you speak to anyone other than the patient for history (EMS, parent, family, police, friend...)? What history was obtained from this source @ -No Did you review nursing and triage notes (agree or disagree)? Why? @ -I reviewed and agree with nursing and triage notes Were old charts reviewed (outside hosp., previous admission, EMS record, old EKG, old radiological studies, urgent care reports/EKG's, detention records)? Report findings @ -Old charts reviewed Differential Diagnosis (chest pain, altered mental status, abdominal pain women, abdominal pain men, vaginal bleeding, weakness, fever, dyspnea, syncope, headache, dizziness, GI bleed, back pain, seizure, CVA, palpatations, mental health, musculoskeletal)? @ -Differential Mental Health Depression, anxiety, bipolar, psychosis, schizophrenia, borderline personality, situational depression, adjustment disorder, behavioral disorder, brain tumor, malingering, substance abuse, encephalopathy, medication reaction, dementia, hypothyroidism, degenerative neurologic disorder, lupus.... This is not meant to be all-inclusive list EKG interpreted by me (3pts min.). @ -As above X-rays interpreted by me (1pt min.). @ -None done CT interpreted by me (1pt min.). @ -Pending U/S interpreted by me (1pt. min.). @ -None done What testing was considered but not performed or refused? (CT, X-rays, U/S, labs)? Why? @ -None What meds were considered but not given or refused? Why? @ -None Did you discuss the management of the patient with other professionals (professionals i.e. , PA, GAUGER DELIVERY, lab, RT, psych nurse, health social work professor, rebrander, teacher, promotion officer, caseworker intake)? Give summary @ -Discussed with poison control who recommended observation for 6 hours and treatment of any hypotension or tachycardia with fluids or vasopressors. Was otherwise in agreement with workup. Patient will be cleared from poison control perspective at 1430 on November 24, 2023. Was smoking cessation discussed for >3mins.? @ -No Was critical care preformed (if so, how long)? @ -Yes, 35 minutes. Were there social determinants of health that impacted care today? How? (Homelessness, low income, unemployed, alcoholism, drug addiction, transportation, low edu. Level, literacy, decrease access to med. care, penitentiary, rehab)? @ -No Was there de-escalation of care discussed even if they declined (Discuss DNR or withdrawal of care, Hospice)? DNR status @ -No What co-morbidities impacted this encounter? (DM, HTN, Smoking, COPD, CAD, Cancer, CVA, ARF, Chemo, Hep., AIDS, mental health diagnosis, sleep apnea, morbid obesity)? @ -Mental health disorder Was patient admitted / discharged? Hospital course, mention meds given and route, prescriptions, significant lab abnormalities, going to OR and other pertinent info. @ -Based on the patient's presentation and physical exam, presents for overdose and suicide attempt. States it was a suicide attempt. Took approximately 30 to 40 tablets of Zyprexa per patient. Unknown what dosage or if it is her medication. States it occurred at approximately 10 AM this morning. Denies any acute complaints at this time. Will obtain overdose workup. Poison control will be consulted. Patient in agreement this plan. Vital signs currently w ithin acceptable limits. Patient's laboratory studies returned remarkable for a slight lactic acidosis of 2.6. UDS positive for marijuana. Workup otherwise unremarkable. EKG showed no signs of acute ischemia. Patient became agitated and Tried to elope from the department. She states she does not want to be here. Patient given IV Ativan at this time. She would not sit still to provide a 1 L fluid bolus. Patient began striking her head against the wall. At this time patient was placed in soft restraints for her safety and given additional Ativan and Geodon. CT brain was ordered due to the minor head trauma but patient be more agitated at this time. This is still pending. Patient signed out to [facility] emergency department physician Dr. Monaco pending results of CT imaging, psychiatric clearance. Undiagnosed new problem with uncertain prognosis? @ -No Drug Therapy requiring intensive monitoring for toxicity (Heparin, Nitro, Insulin, Cardizem)? @ -No Were any procedures done? @ -No Diagnosis/symptom? @ -Intentional overdose of Zyprexa, suicidal ideations Acute, or Chronic, or Acute on Chronic? @ -Acute Uncomplicated (without systemic symptoms) or Complicated (systemic symptoms)? @ -Complicated Side effects of treatment? @ -No Exacerbation, Progression, or Severe Exacerbation? @ -No Poses a threat to life or bodily function? How? (Chest pain, USA, MS, pneumonia, PE, COPD, DKA, ARF, appy, cholecystitis, CVA, Diverticulitis, Homicidal, Suicidal, threat to staff... and all critical care pts) @ -Yes (Gregory Muir) Was patient admitted / discharged? Hospital course, mention meds given and route, prescriptions, significant lab abnormalities, going to OR and other pertinent info. @ -Admit Patient care was signed out to me by Dr. Muir. Patient reported to Zyprexa overdose however throughout the day she is being home more agitated tachycardic hypertensive no longer following commands. I reviewed the patient's chart she is prescribed an SSRI given that she has decompensated after reported ingestion and she is exhibiting 3-4 to signs of serotonin syndrome I do have concern for serotonin syndrome. Patient was treated with aggressive IV Ativan. When patient became appropriately sedated heart rate and blood pressure did not improve but did not resolve. At this time we will plan to patient patient to ICU for serotonin syndrome/toxic ingestion. Undiagnosed new problem with uncertain prognosis? @ -Yes Drug Therapy requiring intensive monitoring for toxicity (Heparin, Nitro, Insulin, Cardizem)? @ -No Were any procedures done? @ -No Diagnosis/symptom? @ -Altered mental status, overdose suspect serotonin syndrome Acute, or Chronic, or Acute on Chronic? @ -Acute Uncomplicated (without systemic symptoms) or Complicated (systemic symptoms)? @ -Complicated Side effects of treatment? @ -No Exacerbation, Progression, or Severe Exacerbation? @ -No Poses a threat to life or bodily function? How? (Chest pain, USA, MS, pneumonia, PE, COPD, DKA, ARF, appy, cholecystitis, CVA, Diverticulitis, Homicidal, Suic idal, threat to staff... and all critical care pts) @ -Yes (Tawny Monaco) - Lab Data Lab Results 11/24/23 11/24/23 11/24/23 Range/Units 11:27 11:27 11:27 WBC 9.3 (3.8-10.6) k/uL RBC 4.96 (3.80-5.40) m/uL Hgb 15.2 (11.4-16.0) gm/dL Hct 47.1 H (34.0-46.0) % MCV 94.9 (80.0-100.0) fL MCH 30.5 (25.0-35.0) pg MCHC 32.2 (31.0-37.0) g/dL RDW 13.0 (11.5-15.5) % Plt Count 278 (150-450) k/uL MPV 8.7 Neutrophils % 75 % Lymphocytes % 19 % Monocytes % 5 % Eosinophils % 0 % Basophils % 0 % Neutrophils # 7.0 (1.3-7.7) k/uL Lymphocytes # 1.7 (1.0-4.8) k/uL Monocytes # 0.4 (0-1.0) k/uL Eosinophils # 0.0 (0-0.7) k/uL Basophils # 0.0 (0-0.2) k/uL PT 10.0 (10.0-12.5) sec INR 0.9 (<1.2) Sodium 138 (137-145) mmol/L Potassium 3.8 (3.5-5.1) mmol/L Chloride 109 H (98-107) mmol/L Carbon Dioxide 22 (22-30) mmol/L Anion Gap 7 mmol/L BUN 16 (7-17) mg/dL Creatinine 0.93 (0.52-1.04) mg/dL Est GFR (CKD-EPI)AfAm 76 (>60 ml/min/1.73 sqM) Est GFR (CKD-EPI)NonAf 66 (>60 ml/min/1.73 sqM) Glucose 185 H (74-99) mg/dL Lactic Ac Sepsis Rflx Plasma Lactic Acid Maco (0.7-2.0) mmol/L Calcium 9.9 (8.4-10.2) mg/dL Total Bilirubin 0.3 (0.2-1.3) mg/dL AST 24 (14-36) U/L ALT 19 (4-34) U/L Alkaline Phosphatase 76 (38-126) U/L Creatine Kinase (30-135) U/L C-Reactive Protein (<1.0) mg/dL Total Protein 6.8 (6.3-8.2) g/dL Albumin 4.3 (3.5-5.0) g/dL Lipase 216 (23-300) U/L Salicylates <1.0 mg/dL Acetaminophen <10.0 ug/mL Serum Alcohol <10 mg/dL 11/24/23 11/24/23 11/24/23 Range/Units 11:27 12:41 16:10 WBC (3.8-10.6) k/uL RBC (3.80-5.40) m/uL Hgb (11.4-16.0) gm/dL Hct (34.0-46.0) % MCV (80.0-100.0) fL MCH (25.0-35.0) pg MCHC (31.0-37.0) g/dL RDW (11.5-15.5) % Plt Count (150-450) k/uL MPV Neutrophils % % Lymphocytes % % Monocytes % % Eosinophils % % Basophils % % Neutrophils # (1.3-7.7) k/uL Lymphocytes # (1.0-4.8) k/uL Monocytes # (0-1.0) k/uL Eosinophils # (0-0.7) k/uL Basophils # (0-0.2) k/uL PT (10.0-12.5) sec INR (<1.2) Sodium (137-145) mmol/L Potassium (3.5-5.1) mmol/L Chloride (98-107) mmol/L Carbon Dioxide (22-30) mmol/L Anion Gap mmol/L BUN (7-17) mg/dL Creatinine (0.52-1.04) mg/dL Est GFR (CKD-EPI)AfAm (>60 ml/min/1.73 sqM) Est GFR (CKD-EPI)NonAf (>60 ml/min/1.73 sqM) Glucose (74-99) mg/dL Lactic Ac Sepsis Rflx Y Plasma Lactic Acid Maco 2.6 H* (0.7-2.0) mmol/L Calcium (8.4-10.2) mg/dL Total Bilirubin (0.2-1.3) mg/dL AST (14-36) U/L ALT (4-34) U/L Alkaline Phosphatase (38-126) U/L Creatine Kinase 253 H (30-135) U/L C-Reactive Protein 0.5 (<1.0) mg/dL Total Protein (6.3-8.2) g/dL Albumin (3.5-5.0) g/dL Lipase (23-300) U/L Salicylates mg/dL Acetaminophen ug/mL Serum Alcohol mg/dL 11/24/23 Range/Units 16:58 WBC (3.8-10.6) k/uL RBC (3.80-5.40) m/uL Hgb (11.4-16.0) gm/dL Hct (34.0-46.0) % MCV (80.0-100.0) fL MCH (25.0-35.0) pg MCHC (31.0-37.0) g/dL RDW (11.5-15.5) % Plt Count (150-450) k/uL MPV Neutrophils % % Lymphocytes % % Monocytes % % Eosinophils % % Basophils % % Neutrophils # (1.3-7.7) k/uL Lymphocytes # (1.0-4.8) k/uL Monocytes # (0-1.0) k/uL Eosinophils # (0-0.7) k/uL Basophils # (0-0.2) k/uL PT (10.0-12.5) sec INR (<1.2) Sodium (137-145) mmol/L Potassium (3.5-5.1) mmol/L Chloride (98-107) mmol/L Carbon Dioxide (22-30) mmol/L Anion Gap mmol/L BUN (7-17) mg/dL Creatinine (0.52-1.04) mg/dL Est GFR (CKD-EPI)AfAm (>60 ml/min/1.73 sqM) Est GFR (CKD-EPI)NonAf (>60 ml/min/1.73 sqM) Glucose (74-99) mg/dL Lactic Ac Sepsis Rflx Plasma Lactic Acid Maco 3.0 H* (0.7-2.0) mmol/L Calcium (8.4-10.2) mg/dL Total Bilirubin (0.2-1.3) mg/dL AST (14-36) U/L ALT (4-34) U/L Alkaline Phosphatase (38-126) U/L Creatine Kinase (30-135) U/L C-Reactive Protein (<1.0) mg/dL Total Protein (6.3-8.2) g/dL Albumin (3.5-5.0) g/dL Lipase (23-300) U/L Salicylates mg/dL Acetaminophen ug/mL Serum Alcohol mg/dL - EKG Data EKG Comments: 12-lead Electrocardiogram Interpretation Note EKG was reviewed and interpreted by myself. 12-lead ECG performed at 1049 is interpreted by me as revealing normal sinus rhythm at a rate of 76 beats per minute. [place] is normal. LA interval is 161 ms, QRS duration is 80 ms, QTc is 390 ms.. There were no ST or T wave abnormalities to suggest myocardial ischemia or injury. R wave progression across the precordium was satisfactory. By my interpretation this EKG is non-diagnostic for acute ischemia. (Gregory Muir) Critical Care Time Critical Care Time: Yes Total Critical Care Time: 35 <Gregory Muir - Last Filed: 11/24/23 14:57> Disposition <Gregory Muir - Last Filed: 11/24/23 14:57> Is patient prescribed a controlled substance at d/c from ED?: No <Tawny Monaco - Last Filed: 11/24/23 19:07> Clinical Impression: Suicidal ideations, Intentional overdose, Serotonin syndrome Disposition: ADMITTED IP TO THIS HOSP Condition: Serious
[2023-11-24] MEDS: diphenhydrAMINE 50 MG/ML 1 ML VIAL IVP STA (16:01)
[2023-11-24 17:49] LABS: C Reactive Protein 0.5 mg/dL (<1.0)
[2023-11-24] MEDS ORDERED: NALOXONE 0.4 MG/ML 1 ML VIAL IV PRN (18:36)
[2023-11-24 19:04] LABS: Appearance,Urine Clear (Clear); Bilirubin,Urine Negative (Negative); Blood,Urine Negative (Negative); Color,Urine Colorless; Glucose,Urine (UA) Negative (Negative); Ketones,Urine Negative (Negative); Leukocyte Esterase,Urine Negative (Negative); Nitrite,Urine Negative (Negative); Protein,Urine Negative (Negative); Specific Gravity,Urine 1.007 (1.001-1.035); Urobilinogen,Urine <2.0 mg/dL (<2.0)
[2023-11-24 19:46] LABS: Amphetamine Screen,Urine Not Detected (NotDetected); Barbiturate Screen,Urine Not Detected (NotDetected); Benzodiazepines Screen,Urine Detected (NotDetected); Cocaine Screen,Urine Not Detected (NotDetected); Methadone Screen, Urine Not Detected (NotDetected); Opiate Screen,Urine Not Detected (NotDetected); Oxycodone Screen, Urine Not Detected (NotDetected); Phencyclidine Screen,Urine Not Detected (NotDetected); Tricyclic Antidepressant,Urine Not Detected (NotDetected); Urn Cannabinoid Scrn Detected (NotDetected)
[2023-11-24] MEDS: SODIUM CHLORIDE 0.9% 1,000 ML IV SCH (19:46)
[2023-11-24] MEDS: LORazepam 2 MG/ML INJ IV PRN ×2 (20:30→22:04)
[2023-11-24] MEDS ORDERED: Magnesium Replacement Protocol 1 EACH MISC MISCELLANE PRN (20:58)
[2023-11-24] MEDS ORDERED: Potassium Replacement Protocol 1 EACH MISC MISCELLANE PRN (20:58)
[2023-11-24 21:17] LABS: Glucose,Whole Blood 97 mg/dL (70-110)
--- NOTE | 2023-11-25 01:10 | P.CNPUL ---
History of Present Illness Consult date: 11/25/23 Requesting physician: Tawny Monaco Reason for consult: other (Overdose; suicide attempt) Chief complaint: Overdose on Zyprexa History of present illness: Patient is a 63-year-old white female with past medical history significant for major depression and borderline personality disorder. She had a recent ER visit last month for suicidal ideation and psychiatric evaluation. She is currently lethargic and not following commands at this time. I am unable to elicit any information. On review of the ER documentation, the patient presented yesterday afternoon after reportedly taking 30 to 40 tablets of Zyprexa. This was a suicide attempt. She declined taking any other medications at that time. She also declined polysubstance abuse except for marijuana. She also was noted to be hypertensive and tachycardic. There was concerns for possible serotonin syndrome versus NMS. Of note, the patient also was agitated and tried to elope while in the ER. She was hitting her head on against the wall. She required multiple doses of Ativan, I am told a total of 5 mg. She was transferred to the intensive care unit for closer monitoring. CPK mildly elevated at 253. CBC unremarkable. BMP also unremarkable. Normal saline infusing at 130 MLS per hour. Urinalysis unremarkable. Urine toxicology screen positive for marijuana and benzodiazepines, which she was receiving here. Serum alcohol less than 10. On my evaluation, the patient has difficulty maintaining arousal. She does o ccasionally roll around in bed, speech is unclear. She is on room air. SpO2 93%. She is no longer tachycardic. Heart rhythm appears normal sinus on bedside monitor. Blood pressure now normotensive. No tremors, no marked rigidity, no clonus, no hyperreflexia, no myoclonic jerks or seizures, nor mothermic, no diaphoresis. Poison control is involved. Review of Systems ROS unobtainable: due to mental status Past Medical History Past Medical History: No Reported History Additional Past Medical History / Comment(s): Multiple personaility, daily marijuana use, major depressive disorder History of Any Multi-Drug Resistant Organisms: None Reported Past Surgical History: Section, Cholecystectomy, Hysterectomy, Orthopedic Surgery, Tubal Ligation Additional Past Surgical History / Comment(s): PILONIADAL CYSTECTOMY. 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 Smoking Status: Former smoker Past Alcohol Use History: None Reported Additional Past Alcohol Use History / Comment(s): SMOKES 1 PPD SINCE AGE 18 Past Drug Use History: Marijuana Additional Drug Use History / Comment(s): USES MARIJUANA DAILY, 6-7 "joints" daily - Past Family History Mother History Unknown: Yes Family Medical History: No Reported History Additional Family Medical History / Comment(s): Ca, unknown kind Father History Unknown: Yes Additional Family Medical History / Comment(s): Ca, unknown kind Medications and Allergies Home Medications Medication Instructions Recorded Confirmed Type Benztropine Mesylate [Cogentin] 1 mg PO BID 07/03/23 11/24/23 History Escitalopram Oxalate [Lexapro] 30 mg PO DAILY 07/03/23 11/24/23 History Omeprazole [PriLOSEC] 20 mg PO DAILY 11/05/23 11/24/23 History Triamcinolone 0.025% Cream 1 applic TOPICAL BID 11/05/23 11/24/23 History [Kenalog 0.025% Cream] Invega Sustenna(Unknown Dose) 1 dose IM Q28D 11/24/23 11/24/23 History Allergies Allergy/AdvReac Type Severity Reaction Status Date / Time adhesive tape Allergy Rash/Hives Verified 11/24/23 20:48 chlorpromazine Allergy Anaphylaxis Verified 11/24/23 20:48 [From Thorazine] codeine Allergy Rash/Hives Verified 11/24/23 20:48 haloperidol [From Haldol] Allergy Rash/tardive Verified 11/24/23 20:48 dyskinesia nicotine [From Nicoderm CQ] Allergy Rash/Hives Verified 11/24/23 20:48 Physical Exam Vitals: Vital Signs Temp Pulse Pulse Resp BP BP Pulse Ox 11/24/23 23:00 102 H 25 H 127/77 93 L 11/24/23 22:00 80 20 125/71 93 L 11/24/23 20:00 90 18 129/86 95 11/24/23 19:04 98.9 F 84 20 125/81 11/24/23 15:40 111 H 20 151/81 11/24/23 14:24 136 H 159/98 11/24/23 13:40 207/92 11/24/23 12:43 161/98 11/24/23 10:48 98.7 F 113 H 18 165/96 98 Intake and Output 11/24/23 11/24/23 11/25/23 14:59 22:59 06:59 Intake Total 130 Output Total 500 Balance -370 Intake: Intake, IV Titration 130 Amount Sodium Chloride 0.9% 1, 130 000 ml @ 130 mls/hr IV . Q7H42M [facility] Rx#:[id number] Output: Urine 500 Other: Weight 77.111 kg 77.111 kg GENERAL EXAM: Lethargic, 63-year-old female, difficult to maintain wakefulness, she does not follow commands or answer my questions. HEAD: Normocephalic and atraumatic EYES: Normal reaction of pupils, equal size. NOSE: Clear with pink turbinates. THROAT: No erythema or exudates. NECK: No masses, no JVD. CHEST: No chest wall deformity. LUNGS: Equal air entry with no crackles, wheeze, rhonchi or dullness. On room air. No conversational dyspnea or accessory muscle use.. CVS: S1 and S2 normal with no audible murmur, regular rhythm. No extra heart sounds ABDOMEN: No hepatosplenomegaly, active bowel sounds, no guarding or rigidity. SPINE: No scoliosis or deformity SKIN: No rashes CENTRAL NERVOUS SYSTEM: No focal deficits, tone is normal in all 4 extremities. Patellar DTRs 2+ bilaterally. No tremors, no marked rigidity, no clonus, no hy perreflexia, no myoclonic jerks or seizures, normothermic, no diaphoresis. EXTREMITIES: There is no peripheral edema, clubbing, or cyanosis. Peripheral pulses are intact. Results - Laboratory Findings CBC and BMP: 11/24/23 11:27 11/24/23 11:27 PT/INR, D-dimer PT 10.0 sec (10.0-12.5) 11/24/23 11:27 INR 0.9 (<1.2) 11/24/23 11:27 Abnormal lab findings: Abnormal Labs 11/24/23 11/24/23 11/24/23 11:27 11:27 11:27 Hct 47.1 H Chloride 109 H Glucose 185 H Plasma Lactic Acid Maco 2.6 H* Creatine Kinase U Benzodiazepines Scrn U Marijuana (THC) Screen 11/24/23 11/24/23 11/24/23 16:10 16:58 18:47 Hct Chloride Glucose Plasma Lactic Acid Maco 3.0 H* Creatine Kinase 253 H U Benzodiazepines Scrn Detected H U Marijuana (THC) Screen Detected H - Diagnostic Findings Chest x-ray: image reviewed Assessment and Plan Assessment: Medication overdose, reportedly took 30 to 40 tablets of Zyprexa, unknown strength. Suicide attempt, currently on suicide precautions with patient safety sitter Rule out NMS versus serotonin syndrome Altered mental status, likely secondary to metabolic encephalopathy and medication effect History of major depression and previous suicidal ideation Marijuana use Plan: Patient's medications and labs were reviewed Continue supportive care Continue as needed Ativan for agitation/anxiety CPK only mildly elevated to [address] without contrast pending If no improvement in patient's mentation, consider neurological evaluation Poison control is involved Hold antipsychotics, including Zyprexa online merchandiser at bedside, continue suicide precautions. Elopement precautions as well Obtain psych evaluation once medically stable We will continue to follow, and additional recommendations are forthcoming I have personally seen and examined the patient, performed the documentation and the assessment and plan as written. Number of minutes spent on the visit:20 Time with Patient: Greater than 30
[2023-11-25 04:18] LABS: Glucose,Whole Blood 113 mg/dL (70-110)
[2023-11-25 04:57] LABS: Basophils % (A) 0 %; Eosinophils # (A) 0.1 k/uL (0-0.7); Eosinophils % (A) 1 %; HCT 41.8 % (34.0-46.0); HGB 13.8 gm/dL (11.4-16.0); Lymphocytes # (A) 2.1 k/uL (1.0-4.8); Lymphocytes % (A) 20 %; MCH 30.9 pg (25.0-35.0); MCV 93.4 fL (80.0-100.0); Mean Platelet Volume 8.4; Monocytes # (A) 0.8 k/uL (0-1.0); Monocytes % (A) 8 %; Neutrophils % (A) 69 %; Platelet Count 247 k/uL (150-450); RBC 4.48 m/uL (3.80-5.40); RDW 13.1 % (11.5-15.5); WBC 10.1 k/uL (3.8-10.6)
[2023-11-25 05:06] LABS: Chloride 116 mmol/L (98-107)
[2023-11-25 05:08] LABS: African American GFR (CKD) 85 (>60 ml/min/1.73 sqM); Anion Gap 5 mmol/L; Blood Urea Nitrogen 8 mg/dL (7-17); Calcium 8.8 mg/dL (8.4-10.2); Carbon Dioxide 22 mmol/L (22-30); Glucose 106 mg/dL (74-99); Non-African American GFR(CKD) 73 (>60 ml/min/1.73 sqM); Potassium 3.6 mmol/L (3.5-5.1); Sodium 143 mmol/L (137-145)
[2023-11-25] MEDS: POTASSIUM CHLORIDE 10 MEQ in WATER FOR INJECTION 1 100ML.BAG IVPB SCH ×2 (05:57→11:52)
--- NOTE | 2023-11-25 15:55 | P.HPIM ---
History of Present Illness H&P Date: 11/25/23 Chief Complaint: Suicidal with intentional overdose This is a 63-year-old female with past medical history significant for major depression, borderline personality disorder and multiple other medical issues admitted with intentional overdose of 30-40 Zyprexa. Patient recently sedated on Ativan. Patient reported as restless, unable to redirect, pulling at lines, agitated. Information being obtained from staff and EHR. Poison control consulted. ER reports patient called her psychiatrist while in the hospital parking lot and overdosed on 30 to 40 tablets of Zyprexa-dose unknown at approximately 10 AM, yesterday a.m. Also smokes 1 pack/day,greater than 40 years in addition to smoking 6-7 joints daily of marijuana. Toxicology screen positive for marijuana and benzodiazepines, with serum alcohol less than 10. Lactic acid 2.6, creatinine kinase 253, UA negative. Blood sugars controlled, renal function stable. Hematology unremarkable. On admission tachycardic, h ypertensive. aggressive IV Ativan administered. Received IV fluid boluses. Attempted to elope from ER . Additional Ativan and Geodon administered as patient began striking her head against the wall in the ER. Brain CT pending. With the concerns of serotonin syndrome, patient was admitted to the ICU.Currently maintained on IV saline at 130 cc an hour. Vital signs currently stable, maintaining O2 sats in the 90s on room air. Psychiatry consult in place, recommendations pending. Review of Systems ROS Statement: Those systems with pertinent positive or pertinent negative responses have been documented in the HPI. ROS Other: All systems not noted in ROS Statement are negative. Past Medical History Past Medical History: No Reported History Additional Past Medical History / Comment(s): Multiple personaility, daily marijuana use, major depressive disorder History of Any Multi-Drug Resistant Organisms: None Reported Past Surgical History: Section, Cholecystectomy, Hysterectomy, Orthopedic Surgery, Tubal Ligation Additional Past Surgical History / Comment(s): PILONIADAL CYSTECTOMY. 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 Smoking Status: Former smoker Past Alcohol Use History: None Reported Additional Past Alcohol Use History / Comment(s): SMOKES 1 PPD SINCE AGE 18 Past Drug Use History: Marijuana Additional Drug Use History / Comment(s): USES MARIJUANA DAILY, 6-7 "joints" daily - Past Family History Mother History Unknown: Yes Family Medical History: No Reported History Additional Family Medical History / Comment(s): Ca, unknown kind Father History Unknown: Yes Additional Family Medical History / Comment(s): Ca, unknown kind Medications and Allergies Home Medications Medication Instructions Recorded Confirmed Type Benztropine Mesylate [Cogentin] 1 mg PO BID 07/03/23 11/24/23 History Escitalopram Oxalate [Lexapro] 30 mg PO DAILY 07/03/23 11/24/23 History Omeprazole [PriLOSEC] 20 mg PO DAILY 11/05/23 11/24/23 History Triamcinolone 0.025% Cream 1 applic TOPICAL BID 11/05/23 11/24/23 History [Kenalog 0.025% Cream] Paliperidone Palmitate [Invega 117 mg IM QMONTHLY 11/25/23 11/25/23 History Sustenna] Allergies Allergy/AdvReac Type Severity Reaction Status Date / Time adhesive tape Allergy Rash/Hives Verified 11/24/23 20:48 chlorpromazine Allergy Anaphylaxis Verified 11/24/23 20:48 [From Thorazine] codeine Allergy Rash/Hives Verified 11/24/23 20:48 haloperidol [From Haldol] Allergy Rash/tardive Verified 11/24/23 20:48 dyskinesia nicotine [From Nicoderm CQ] Allergy Rash/Hives Verified 11/24/23 20:48 Physical Exam Vitals: Vital Signs Temp Pulse Pulse Resp BP BP Pulse Ox 11/25/23 09:00 90 12 129/86 95 11/25/23 08:00 97.7 F 85 12 119/70 95 11/25/23 07:00 85 16 116/75 94 L 11/25/23 06:00 98.4 F 91 21 140/93 93 L 11/25/23 05:00 17 116/79 95 11/25/23 04:00 98.4 F 86 24 129/78 95 11/25/23 03:00 81 18 136/82 94 L 11/25/23 02:00 83 17 127/88 95 11/25/23 01:00 98 16 121/72 94 L 11/25/23 00:00 103 H 86 17 125/97 92 L 11/24/23 23:07 81 15 120/71 93 L 11/24/23 23:00 102 H 25 H 127/77 93 L 11/24/23 22:00 80 20 125/71 93 L 11/24/23 20:00 90 18 129/86 95 11/24/23 19:04 98.9 F 84 20 125/81 11/24/23 15:40 111 H 20 151/81 11/24/23 14:24 136 H 159/98 11/24/23 13:40 207/92 11/24/23 12:43 161/98 11/24/23 10:48 98.7 F 113 H 18 165/96 98 Intake and Output 11/24/23 11/25/23 11/25/23 22:59 06:59 14:59 Intake Total 1140 490 Output Total 500 0 Balance 640 490 Intake: Intake, IV Titration 1140 490 Amount Potassium Chloride 10 meq 100 100 In Water For Injection 1 100ml.bag @ 100 mls/hr IVPB Q1H [facility] Rx#: [id number] Sodium Chloride 0.9% 1, 1040 390 000 ml @ 130 mls/hr IV . Q7H42M [facility] Rx#:[id number] Output: Urine 500 0 Other: Voiding Method External Catheter Diaper Incontinent # Voids 2 # Bowel Movements 0 Weight 77.111 kg 79.7 kg PHYSICAL EXAM: VITAL SIGNS: [As above] GENERAL: Drowsy, opening eyes to name recently sedated, no acute distress HEENT: Normocephalic, conjunctivae normal. eyes normal. NECK: Supple, no JVD. No thyroid enlargement. No LNs CARDIOVASCULAR: S1, S2 regular. No murmur RESPIRATION: Unlabored , equal air entry breath sounds diminished in the bases. No rhonchi or crackles. No bronchial breathing. ABDOMEN: Soft, nontender . No guarding. no masses palpable. No ascites, No hepatosplenomegaly.Bowel sounds heard. LEGS: No edema. no swelling NERVOUS SYSTEM: Unable to assess at this time, recently medicated with Ativan Skin: Warm and dry, no rash Results CBC & Chem 7: 11/25/23 04:34 11/25/23 10:30 Labs: Abnormal Lab Results - Last 24 Hours (Table) 11/24/23 11/24/23 11/24/23 Range/Units 11:27 11:27 11:27 Hct 47.1 H (34.0-46.0) % Chloride 109 H (98-107) mmol/L Glucose 185 H (74-99) mg/dL POC Glucose (mg/dL) (70-110) mg/dL Plasma Lactic Acid Maco 2.6 H* (0.7-2.0) mmol/L Creatine Kinase (30-135) U/L U Benzodiazepines Scrn (NotDetected) U Marijuana (THC) Screen (NotDetected) 11/24/23 11/24/23 11/24/23 Range/Units 16:10 16:58 18:47 Hct (34.0-46.0) % Chloride (98-107) mmol/L Glucose (74-99) mg/dL POC Glucose (mg/dL) (70-110) mg/dL Plasma Lactic Acid Maco 3.0 H* (0.7-2.0) mmol/L Creatine Kinase 253 H (30-135) U/L U Benzodiazepines Scrn Detected H (NotDetected) U Marijuana (THC) Screen Detected H (NotDetected) 11/25/23 11/25/23 Range/Units 04:17 04:34 Hct (34.0-46.0) % Chloride 116 H (98-107) mmol/L Glucose 106 H (74-99) mg/dL POC Glucose (mg/dL) 113 H (70-110) mg/dL Plasma Lactic Acid Maco (0.7-2.0) mmol/L Creatine Kinase (30-135) U/L U Benzodiazepines Scrn (NotDetected) U Marijuana (THC) Screen (NotDetected) Thrombosis Risk Factor Assmnt - Choose All That Apply Each Factor Represents 1 point: Medical pt on bed rest, Obesity (BMI >25) Each Risk Factor Represents 2 Points: Age 61-74 years Other congenital or acquired thrombophilia - If yes, enter type in comment: No Thrombosis Risk Factor Assessment Total Risk Factor Score: 4 Thrombosis Risk Factor Assessment Level: Moderate Risk Assessment and Plan Assessment: Intentional suicide attempt, overdosed on 30 to 40 tablets of Zyprexa, Serotonin Syndrome Acute metabolic, toxic encephalopathy secondary to the above Major depressive disorder Borderline personality disorder Nicotine dependence Daily marijuana use Plan: Continue on current medication regimen ,monitoring and symptomatic treatment. 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 Brain CT pending. Psychiatry management as per Dr. Fuller. Prognosis guarded given multiple complex medical issues. The impression and plan of care has been dictated as directed. : I performed a history and examination of this patient, discussed the same with the dictator. I agree with the dictator's note ,documented as a scribe. Any additional findings or plans will be noted.
[2023-11-26 00:27] LABS: Glucose,Whole Blood 131 mg/dL (70-110)
--- NOTE | 2023-11-26 00:41 | CT ---
EXAMINATION TYPE: CT brain wo con DATE OF EXAM: 11/26/2023 HISTORY: overdose/agitation CT DLP: 1095.1 mGycm. Automated Exposure Control for Dose Reduction was Utilized. TECHNIQUE: CT scan of the head is performed without contrast. COMPARISON: Prior CT head May 22, 2022. FINDINGS: There is no acute intracranial hemorrhage or midline shift identified. Ventricles and sul ci within normal limits in size for patient's age. Aguirre-white matter differentiation fairly well pres erved. The globes are intact and the visualized sinuses are clear. IMPRESSION: No acute intracranial hemorrhage or midline shift. No significant change from most recen t prior CT.
[2023-11-26 04:22] LABS: Basophils # (A) 0.1 k/uL (0-0.2); Basophils % (A) 1 %; Eosinophils # (A) 0.2 k/uL (0-0.7); Eosinophils % (A) 2 %; HCT 41.4 % (34.0-46.0); HGB 13.5 gm/dL (11.4-16.0); Lymphocytes # (A) 2.4 k/uL (1.0-4.8); Lymphocytes % (A) 30 %; MCH 30.9 pg (25.0-35.0); MCHC 32.6 g/dL (31.0-37.0); MCV 94.8 fL (80.0-100.0); Mean Platelet Volume 8.4; Monocytes # (A) 0.7 k/uL (0-1.0); Monocytes % (A) 9 %; Neutrophils # (A) 4.4 k/uL (1.3-7.7); Neutrophils % (A) 56 %; Platelet Count 246 k/uL (150-450); RBC 4.36 m/uL (3.80-5.40); RDW 13.2 % (11.5-15.5); WBC 7.9 k/uL (3.8-10.6)
[2023-11-26 04:48] LABS: African American GFR (CKD) 85 (>60 ml/min/1.73 sqM); Anion Gap 5 mmol/L; Blood Urea Nitrogen 7 mg/dL (7-17); Calcium 8.6 mg/dL (8.4-10.2); Carbon Dioxide 19 mmol/L (22-30); Chloride 115 mmol/L (98-107); Glucose 105 mg/dL (74-99); Non-African American GFR(CKD) 73 (>60 ml/min/1.73 sqM); Potassium 4.1 mmol/L (3.5-5.1); Sodium 139 mmol/L (137-145)
--- NOTE | 2023-11-26 10:17 | P.PN ---
Subjective Progress Note Date: 11/26/23 Principal diagnosis: Serotonin syndrome. Patient is a 63-year-old white female with past medical history significant for major depression and borderline personality disorder. She had a recent ER visit last month for suicidal ideation and psychiatric evaluation. She is currently lethargic and not following commands at this time. I am unable to elicit any information. On review of the ER documentation, the patient presented yesterday afternoon after reportedly taking 30 to 40 tablets of Zyprexa. This was a suicide attempt. She declined taking any other medications at that time. She also declined polysubstance abuse except for marijuana. She also was noted to be hypertensive and tachycardic. There was concerns for possible serotonin syndrome versus NMS. Of note, the patient also was agitated and tried to elope while in the ER. She was hitting her head on against the wall. She required multiple doses of Ativan, I am told a total of 5 mg. She was transferred to the intensive care unit for closer monitoring. CPK mildly elevated at 253. CBC unremarkable. BMP also unremarkable. Normal saline infusing at 130 MLS per hour. Urinalysis unremarkable. Urine toxicology screen positive for marijuana and benzodiazepines, which she was receiving here. Serum alcohol less than 10. On my evaluation, the patient has difficulty maintaining arousal. She does occ asionally roll around in bed, speech is unclear. She is on room air. SpO2 93%. She is no longer tachycardic. Heart rhythm appears normal sinus on bedside monitor. Blood pressure now normotensive. No tremors, no marked rigidity, no clonus, no hyperreflexia, no myoclonic jerks or seizures, normothermic, no diaphoresis. Poison control is involved. Progress note dated November 26, 2023. 63-year-old female who attempted suicide, and took an overdose of Zyprexa. She presented with tachycardia, and hypertension, and was thought to have serotonin syndrome. She was quite agitated. She was transferred to the intensive care unit, for further monitoring and management, and has been receiving IV Ativan, for control of her symptoms. Currently, she is resting comfortably in the ICU. The patient is currently on room air. She is receiving saline at 130 cc an hour. She did have a CAT scan of the brain which was negative. We will ask psychiatry to see her today. From the medical standpoint, the patient is stable for evaluation by psychiatry, and possible transfer to the psychiatric unit. White count 7.9, hemoglobin 13.5, hematocrit 41.4, and platelet count 246,000. Sodium 139, potassium 4.1, chlorides 115, CO2 19, BUN 7, creatinine 0.85. Glucose is 105. Calcium 8.6. Objective - Vital Signs Vital signs: Vital Signs Temp 98.9 F 11/26/23 08:00 Pulse 110 H 11/26/23 09:00 Resp 16 11/26/23 09:00 BP 112/71 11/26/23 09:00 Pulse Ox 96 11/26/23 09:00 FiO2 Intake & Output 11/25/23 11/26/23 11/26/23 18:59 06:59 18:59 Intake Total 1989 1430 510 Output Total 300 2377 700 Balance 5034 -147 -584 Weight 72.6 kg Intake: Intake, IV Titration 1989 1430 390 Amount Potassium Chloride 10 meq 100 In Water For Injection 1 100ml.bag @ 100 mls/hr IVPB Q1H [facility] Rx#: [id number] Potassium Chloride 10 meq 200 In Water For Injection 1 100ml.bag @ 100 mls/hr IVPB Q1H [facility] Rx#: [id number] Sodium Chloride 0.9% 1, 1690 1430 390 000 ml @ 130 mls/hr IV . Q7H42M [facility] Rx#:[id number] Oral 120 Output: Urine 300 1500 700 Uretheral (Block) 750 Post Void Residual 877 Other: Voiding Method Diaper Diaper Bedside Commode Incontinent Incontinent External Catheter # Voids 1 0 - Exam No acute distress, oriented 3. Currently on room air. No respiratory distress. HEENT examination is grossly unremarkable. Mucous membranes are moist. No oral lesions. Neck supple. Full range of motion. No adenopathy thyromegaly or neck vein distention. Cardiovascular examination reveals regular rhythm rate. S1-S2 normal. No S3 or S4. No discernible murmur noted. Heart rate 100 bpm. Lungs reveal clear breath sounds. Breath sounds are equal bilaterally. No adventitious lung sounds including wheezes rhonchi or crackles. Room air saturation is 96%. Abdomen soft bowel sounds are heard. No masses or tenderness. Extremities are intact. No cyanosis clubbing or edema. Skin is without rash or lesion. Neurologic examination is brief but nonfocal. - Labs CBC & Chem 7: 11/26/23 03:46 11/26/23 03:46 Labs: Abnormal Lab Results - Last 24 Hours (Table) 11/26/23 11/26/23 Range/Units 00:25 03:46 Chloride 115 H (98-107) mmol/L Carbon Dioxide 19 L (22-30) mmol/L Glucose 105 H (74-99) mg/dL POC Glucose (mg/dL) 131 H (70-110) mg/dL Assessment and Plan Assessment: Medication overdose, reportedly took 30 to 40 tablets of Zyprexa. Suicide attempt, currently on suicide precautions with health safety specialist. Rule out NMS versus serotonin syndrome. Altered mental status, likely secondary to metabolic encephalopathy and medication effect. History of major depression and previous suicidal ideation. Marijuana use. Plan: Plan dated November 26, 2023. The patient likely had serotonin syndrome, which was mild to moderate in severity. She did not have all the abnormalities typically seen with this disorder. She did have agitation, a mild bump in her CPK, as well as hypertension, and tachycardia. She was treated in the intensive care unit, with IV Ativan. She never required dexmedetomidine, or cyproheptadine. The patient is stable to be evaluated by psychiatry. The patient is also stable to be t ransferred out of the intensive care unit. Labs, x-rays, and medications are all reviewed. Prognosis is guarded. Time with Patient: Less than 30
[2023-11-26] MEDS: ENOXAPARIN 40 MG/0.4 ML SYRINGE SQ SCH (10:34)
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
--- NOTE | 2023-11-26 13:28 | P.CN ---
Psychiatric Consult - . Consult date: 11/26/23 Consult:: 11/26/23 13:27 Case was discussed with social insurance analyst Mahin Malik, it appears that patient does meet criteria for inpatient psychiatric admission. Patient is a and will be transferred to [facility] for psychiatric hospitalization once patient is medically cleared.
[2023-11-26 16:27] LABS: Glucose,Whole Blood 90 mg/dL (70-110)
[2023-11-26 20:04] LABS: Glucose,Whole Blood 126 mg/dL (70-110)
[2023-11-27 06:29] LABS: Glucose,Whole Blood 119 mg/dL (70-110)
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
--- NOTE | 2023-11-27 11:19 | P.PN ---
Subjective Progress Note Date: 11/27/23 Principal diagnosis: Serotonin syndrome. Patient is a 63-year-old white female with past medical history significant for major depression and borderline personality disorder. She had a recent ER visit last month for suicidal ideation and psychiatric evaluation. She is currently lethargic and not following commands at this time. I am unable to elicit any information. On review of the ER documentation, the patient presented yesterday afternoon after reportedly taking 30 to 40 tablets of Zyprexa. This was a suicide attempt. She declined taking any other medications at that time. She also declined polysubstance abuse except for marijuana. She also was noted to be hypertensive and tachycardic. There was concerns for possible serotonin syndrome versus NMS. Of note, the patient also was agitated and tried to elope while in the ER. She was hitting her head on against the wall. She required multiple doses of Ativan, I am told a total of 5 mg. She was transferred to the intensive care unit for closer monitoring. CPK mildly elevated at 253. CBC unremarkable. BMP also unremarkable. Normal saline infusing at 130 MLS per hour. Urinalysis unremarkable. Urine toxicology screen positive for marijuana and benzodiazepines, which she was receiving here. Serum alcohol less than 10. On my evaluation, the patient has difficulty maintaining arousal. She does occ asionally roll around in bed, speech is unclear. She is on room air. SpO2 93%. She is no longer tachycardic. Heart rhythm appears normal sinus on bedside monitor. Blood pressure now normotensive. No tremors, no marked rigidity, no clonus, no hyperreflexia, no myoclonic jerks or seizures, normothermic, no diaphoresis. Poison control is involved. Progress note dated November 26, 2023. 63-year-old female who attempted suicide, and took an overdose of Zyprexa. She presented with tachycardia, and hypertension, and was thought to have serotonin syndrome. She was quite agitated. She was transferred to the intensive care unit, for further monitoring and management, and has been receiving IV Ativan, for control of her symptoms. Currently, she is resting comfortably in the ICU. The patient is currently on room air. She is receiving saline at 130 cc an hour. She did have a CAT scan of the brain which was negative. We will ask psychiatry to see her today. From the medical standpoint, the patient is stable for evaluation by psychiatry, and possible transfer to the psychiatric unit. White count 7.9, hemoglobin 13.5, hematocrit 41.4, and platelet count 246,000. Sodium 139, potassium 4.1, chlorides 115, CO2 19, BUN 7, creatinine 0.85. Glucose is 105. Calcium 8.6. Progress note dated November 27, 2023. This is a 63-year-old female who we saw initially in the intensive care unit, for serotonin syndrome, secondary to an overdose, and suicide attempt, with Zyprexa. The patient remains in the hospital, and is seen today in room 378. She is on room air. Not receiving any IV fluids. She is not particularly talkative. For her serotonin syndrome, she was treated with Ativan. She never required dexmedetomidine. Poison control was involved. CT scan of the brain was negative. No new labs today, other than a glucose of 119. Objective - Vital Signs Vital signs: Vital Signs Temp 98.7 F 11/26/23 13:40 Pulse 84 11/27/23 08:00 Resp 16 11/27/23 08:00 BP 127/73 11/27/23 08:00 Pulse Ox 92 L 11/27/23 08:00 FiO2 Intake & Output 11/26/23 11/27/23 11/27/23 18:59 06:59 18:59 Intake Total 640 0 Output Total 700 Balance -60 0 Intake: Intake, IV Titration 520 Amount Sodium Chloride 0.9% 1, 520 000 ml @ 130 mls/hr IV . Q7H42M [facility] Rx#:[id number] Oral 120 0 Output: Urine 700 Other: Voiding Method Bedside Commode Bedside Commode Bedside Commode # Voids 1 # Bowel Movements 1 - Exam No acute distress, oriented 3. Currently on room air. No respiratory distress. HEENT examination is grossly unremarkable. Mucous membranes are moist. No oral lesions. Neck supple. Full range of motion. No adenopathy thyromegaly or neck vein distention. Cardiovascular examination reveals regular rhythm rate. S1-S2 normal. No S3 or S4. No discernible murmur noted. Heart rate 84 bpm. Lungs reveal clear breath sounds. Breath sounds are equal bilaterally. No adventitious lung sounds including wheezes rhonchi or crackles. Room air saturation is 94 %. Abdomen soft bowel sounds are heard. No masses or tenderness. Extremities are intact. No cyanosis clubbing or edema. Skin is without rash or lesion. Neurologic examination is brief but nonfocal. - Labs CBC & Chem 7: 11/26/23 03:46 11/26/23 03:46 Labs: Abnormal Lab Results - Last 24 Hours (Table) 11/26/23 11/27/23 Range/Units 20:03 06:29 POC Glucose (mg/dL) 126 H 119 H (70-110) mg/dL Assessment and Plan Assessment: Medication overdose, reportedly took 30 to 40 tablets of Zyprexa. Suicide attempt, currently on suicide precautions with manager security and safety. Rule out NMS versus serotonin syndrome. Altered mental status, likely secondary to metabolic encephalopathy and medication effect. History of major depression and previous suicidal ideation. Marijuana use. Plan: Plan dated November 26, 2023. The patient likely had serotonin syndrome, which was mild to moderate in severity. She did not have all the abnormalities typically seen with this disorder. She did have agitation, a mild bump in her CPK, as well as hypertension, and tachycardia. She was treated in the intensive care unit, with IV Ativan. She never required dexmedetomidine, or cyproheptadine. The patient is stable to be evaluated by psychiatry. The patient is also stable to be transferred out of the intensive care unit. Labs, x-rays, and medications are all reviewed. Prognosis is guarded. Plan dated November 27, 2023. The patient likely suffered from an episode of mild/moderate serotonin syndrome. The patient is doing much better today. The patient was treated primarily with benzodiazepines, i.e. Ativan. The patient initially presented with hypertension, and tachycardia. Labs, x-rays, and medications are reviewed. Poison control was notified, and did participate in the care of this patient. The patient never required dexmedetomidine, or cyproheptadine. Additional recommendations and suggestions are forthcoming. The patient has been evaluated by psychiatry. We will continue to follow. Time with Patient: Less than 30
[2023-11-27 11:21] LABS: Glucose,Whole Blood 203 mg/dL (70-110)
--- NOTE | 2023-11-27 14:28 | P.CN ---
Psychiatric Consult - . Consult date: 11/27/23 Consult:: 11/27/23 14:00 IDENTIFYING DATA: This patient is a 63-year-old, female, currently lives with her in a house, she has 2 kids, she is 100% service- connected at the [employer]. REASON FOR REFERRAL: Psychiatry was consulted for suicide attempt, overdose HISTORY OF PRESENT ILLNESS: The patient presented to the hospital on 11/23 after having a appointment with her therapist. She states that she came up to the parking lot called her therapist again after walking out on the appointment. States that she overdosed after talking with her therapist over the phone on 30 to 40 tablets of Zyprexa. In the parking lot. This apparently was a suicide attempt. Patient apparently has a history of BPD, depression and polysubstance abuse, multiple previous psychiatric hospitalizations. Patient was treated for the overdose, seen today on the medical floors. Patient had a sad affect, constricted, she was fairly vague, concrete in her thought process. She states that she is feeling fairly depressed and anxious, states that she is having relationship issues with her . States that she is still having suicidal thoughts, no specific plan at this time. Claims that she does not trust herself and is impulsive. Claims that she is hearing voices as well telling to harm herself. Denies any visual hallucinations. Denies any homicidal ideations. Denies any paranoia at this time not endorsing any delusions. States that her appetite is fine, energy is poor, sleep about 8 hours a night. She admits to using marijuana regularly, denies any other recreational drug use. PAST PSYCHIATRIC HISTORY: Patient has a a history of borderline personality disorder, depression, polysubstance abuse. Patient is currently on several different medications including Lexapro, Cogentin, Zyprexa and Invega she has been hospitalized several times in the past, last psychiatric hospitalization was in [facility] in August 2023. She states that she follows up at the [facility] for outpatient mental health services. Claims that she has had multiple suicide attempts in the past. Past Medical History: No Reported History History of Any Multi-Drug Resistant Organisms: None Reported Past Surgical History: Section, Cholecystectomy, Hysterectomy, Orthopedic Surgery, Tubal Ligation Additional Past Surgical History / Comment(s): PILONIADAL CYSTECTOMY. RT ROTATOR CUFF REPAIR Past Anesthesia/Blood Transfusion Reactions: Motion Sickness Past Psychological History: Depression Smoking Status: Former smoker Past Alcohol Use History: None Reported Past Drug Use History: Marijuana. ALLERGIES: as per EMR. CHEMICAL DEPENDENCY HISTORY: as per HPI. FAMILY PSYCHIATRIC/SUBSTANCE USE HISTORY: Denies SOCIAL HISTORY: Patient was born and raised in [place] and then moved to [place]. Claims that she served in the [employer] for 3 years from -. States that she has not been to custodial. She is currently lives with her in a house, she has 2 kids. She collects 100% service-connected through the [employer]. MENTAL STATUS EXAM: General Appearance: Patient appears to be mildly overweight, short hair, wearing glasses, stated age is alert, soft tone, vague and evasive patient appears to have fair hygiene and grooming wearing hospital gown with poor eye contact. Behavior: Patient is calmly lying in bed without any agitated behavior. Evasive. Vague. Speech: Patient's speech is fluent and nonpressured. Soft tone concrete Mood/Affect: Patient reports their mood is "depressed and anxious", affect is congruent constricted Suicidality/Homicidality: Patient mitts to having suicidal ideations, no specific plan, denies any homicidal ideations Perceptions: Patient denies any visual hallucinations she admits to auditory hallucinations telling her to kill herself Though content/process: There is no evidence of any delusional thought content and thought process is linear and goal-directed. [place], Memory and concentration: AOX3, grossly intact for the purposes of this session. Can spell "WORLD" backwards Judgment and insight: Poor/impulsive IMPRESSIONS: Suicide attempt by overdose of psychiatric medications Depressive disorder unspecified Borderline personality disorder Rule out PTSD Cannabis use disorder PLAN: -At this time patient DOES meet criteria for inpatient psychiatric admission. -Would recommend the following medication changes/additions: Lexapro 10 mg daily for mood/anxiety, Invega p.o. 3 mg nightly for mood stabilization/psychosis/sleep -Continue 1:1 sitter for safety -Cannot leave AMA at this time. General Magistrate completed first certificate for transfer to [facility] -When medically stable, patient is eligible for transfer to a psych bed when available. -Communicated plan to patient's nurse -Psychiatry will sign off at this time -Please contact with any questions. 11/27/23 14:21 11/27/23 14:22
[2023-11-27] MEDS: ESCITALOPRAM 10 MG TAB PO SCH (16:18)
[2023-11-27 16:31] LABS: Glucose,Whole Blood 105 mg/dL (70-110)
[2023-11-27 19:55] LABS: Glucose,Whole Blood 105 mg/dL (70-110)
[2023-11-27] MEDS: PALIPERIDONE 3 MG TAB.ER.24 PO SCH (20:23)
[2023-11-28 06:24] LABS: Glucose,Whole Blood 105 mg/dL (70-110)
[2023-11-28 11:25] LABS: African American GFR (CKD) 75 (>60 ml/min/1.73 sqM); Anion Gap 7 mmol/L; Blood Urea Nitrogen 15 mg/dL (7-17); Calcium 9.2 mg/dL (8.4-10.2); Carbon Dioxide 22 mmol/L (22-30); Chloride 109 mmol/L (98-107); Glucose 142 mg/dL (74-99); Non-African American GFR(CKD) 65 (>60 ml/min/1.73 sqM); Potassium 3.9 mmol/L (3.5-5.1); Sodium 138 mmol/L (137-145)
[2023-11-28 11:29] LABS: Basophils % (A) 0 %; Eosinophils # (A) 0.1 k/uL (0-0.7); Eosinophils % (A) 1 %; HCT 41.5 % (34.0-46.0); HGB 14.3 gm/dL (11.4-16.0); Lymphocytes # (A) 2.1 k/uL (1.0-4.8); Lymphocytes % (A) 23 %; MCH 31.9 pg (25.0-35.0); MCHC 34.4 g/dL (31.0-37.0); MCV 92.6 fL (80.0-100.0); Mean Platelet Volume 9.5; Monocytes # (A) 0.6 k/uL (0-1.0); Monocytes % (A) 7 %; Neutrophils # (A) 6.1 k/uL (1.3-7.7); Neutrophils % (A) 67 %; Platelet Count 264 k/uL (150-450); RBC 4.48 m/uL (3.80-5.40); RDW 13.4 % (11.5-15.5); WBC 9.1 k/uL (3.8-10.6)
[2023-11-28 11:37] LABS: Glucose,Whole Blood 108 mg/dL (70-110)
--- NOTE | 2023-11-28 11:49 | P.PN ---
Subjective Progress Note Date: 11/28/23 Principal diagnosis: Serotonin syndrome. Patient is a 63-year-old white female with past medical history significant for major depression and borderline personality disorder. She had a recent ER visit last month for suicidal ideation and psychiatric evaluation. She is currently lethargic and not following commands at this time. I am unable to elicit any information. On review of the ER documentation, the patient presented yesterday afternoon after reportedly taking 30 to 40 tablets of Zyprexa. This was a suicide attempt. She declined taking any other medications at that time. She also declined polysubstance abuse except for marijuana. She also was noted to be hypertensive and tachycardic. There was concerns for possible serotonin syndrome versus NMS. Of note, the patient also was agitated and tried to elope while in the ER. She was hitting her head on against the wall. She required multiple doses of Ativan, I am told a total of 5 mg. She was transferred to the intensive care unit for closer monitoring. CPK mildly elevated at 253. CBC unremarkable. BMP also unremarkable. Normal saline infusing at 130 MLS per hour. Urinalysis unremarkable. Urine toxicology screen positive for marijuana and benzodiazepines, which she was receiving here. Serum alcohol less than 10. On my evaluation, the patient has difficulty maintaining arousal. She does occ asionally roll around in bed, speech is unclear. She is on room air. SpO2 93%. She is no longer tachycardic. Heart rhythm appears normal sinus on bedside monitor. Blood pressure now normotensive. No tremors, no marked rigidity, no clonus, no hyperreflexia, no myoclonic jerks or seizures, normothermic, no diaphoresis. Poison control is involved. Progress note dated November 26, 2023. 63-year-old female who attempted suicide, and took an overdose of Zyprexa. She presented with tachycardia, and hypertension, and was thought to have serotonin syndrome. She was quite agitated. She was transferred to the intensive care unit, for further monitoring and management, and has been receiving IV Ativan, for control of her symptoms. Currently, she is resting comfortably in the ICU. The patient is currently on room air. She is receiving saline at 130 cc an hour. She did have a CAT scan of the brain which was negative. We will ask psychiatry to see her today. From the medical standpoint, the patient is stable for evaluation by psychiatry, and possible transfer to the psychiatric unit. White count 7.9, hemoglobin 13.5, hematocrit 41.4, and platelet count 246,000. Sodium 139, potassium 4.1, chlorides 115, CO2 19, BUN 7, creatinine 0.85. Glucose is 105. Calcium 8.6. Progress note dated November 27, 2023. This is a 63-year-old female who we saw initially in the intensive care unit, for serotonin syndrome, secondary to an overdose, and suicide attempt, with Zyprexa. The patient remains in the hospital, and is seen today in room 378. She is on room air. Not receiving any IV fluids. She is not particularly talkative. For her serotonin syndrome, she was treated with Ativan. She never required dexmedetomidine. Poison control was involved. CT scan of the brain was negative. No new labs today, other than a glucose of 119. Progress note dated November 28, 2023. 63-year-old female seen initially in the intensive care unit, secondary to a suicide attempt, by overdosing on Zyprexa. She initially came in with increased muscular activity, tachycardia, and hypertension, consistent with a mild to moderate episode of serotonin syndrome. The patient was transferred to the intensive care unit, where she received Ativan, for support. She has not been seen the last few days, in room 378. She is doing much better. Her is at the bedside. She is on room air, and not receiving any IV fluids. White count 9.1, hemoglobin 14.3, hematocrit 41.5, and platelet count normal at 264,000. Sodium 138, potassium 3.9, chlorides 109, CO2 22, BUN 15, creatinine 0.94. Glucose is 108. Calcium is 9.2. Objective - Vital Signs Vital signs: Vital Signs Temp 98.2 F 11/28/23 11:34 Pulse 97 11/28/23 11:34 Resp 17 11/28/23 11:34 BP 105/69 11/28/23 11:34 Pulse Ox 98 11/28/23 11:34 FiO2 Intake & Output 11/27/23 11/28/23 11/28/23 18:59 06:59 18:59 Intake Total 225 Balance 225 Intake: Oral 225 Other: Voiding Method Bedside Commode Bedside Commode Bedside Commode # Voids 1 1 - Exam No acute distress, oriented 3. Currently on room air. No respiratory distress. HEENT examination is grossly unremarkable. Mucous membranes are moist. No oral lesions. Neck supple. Full range of motion. No adenopathy thyromegaly or neck vein distention. Cardiovascular examination reveals regular rhythm rate. S1-S2 normal. No S3 or S4. No discernible murmur noted. Heart rate 91 bpm. Lungs reveal clear breath sounds. Breath sounds are equal bilaterally. No adventitious lung sounds including wheezes rhonchi or crackles. Room air saturation is 98 %. Abdomen soft bowel sounds are heard. No masses or tenderness. Extremities are intact. No cyanosis clubbing or edema. Skin is without rash or lesion. Neurologic examination is brief but nonfocal. - Labs CBC & Chem 7: 11/28/23 10:08 11/28/23 10:08 Labs: Abnormal Lab Results - Last 24 Hours (Table) 11/28/23 Range/Units 10:08 Chloride 109 H (98-107) mmol/L Glucose 142 H (74-99) mg/dL Assessment and Plan Assessment: Medication overdose, reportedly took 30 to 40 tablets of Zyprexa. 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 Rule out NMS versus serotonin syndrome. Altered mental status, likely secondary to metabolic encephalopathy and medi cation effect. History of major depression and previous suicidal ideation. Marijuana use. Plan: Plan dated November 26, 2023. The patient likely had serotonin syndrome, which was mild to moderate in severity. She did not have all the abnormalities typically seen with this disorder. She did have agitation, a mild bump in her CPK, as well as hypertension, and tachycardia. She was treated in the intensive care unit, with IV Ativan. She never required dexmedetomidine, or cyproheptadine. The patient is stable to be evaluated by psychiatry. The patient is also stable to be transferred out of the intensive care unit. Labs, x-rays, and medications are all reviewed. Prognosis is guarded. Plan dated November 27, 2023. The patient likely suffered from an episode of mild/moderate serotonin syndrome. The patient is doing much better today. The patient was treated primarily with benzodiazepines, i.e. Ativan. The patient initially presented with hypertension, and tachycardia. Labs, x-rays, and medications are reviewed. Poison control was notified, and did participate in the care of this patient. The patient never required dexmedetomidine, or cyproheptadine. Additional recommendations and suggestions are forthcoming. The patient has been evaluated by psychiatry. We will continue to follow. Plan dated November 28, 2023. The patient is doing much better. She remains on room air, and is not receiving any IV fluids. Labs, x-rays, and medications are reviewed. The patient was admitted with a Zyprexa overdose, secondary to a suicide attempt, and developed mild/moderate serotonin syndrome. The patient was transferred to the intensive care unit, for monitoring and management. There she received IV Ativan, and never required any dexmedetomidine, or cyproheptadine. We will continue to follow. Prognosis is guarded. Her is at the bedside. Time with Patient: Less than 30
[2023-11-28 16:27] LABS: Glucose,Whole Blood 115 mg/dL (70-110)
[2023-11-28 20:12] LABS: Glucose,Whole Blood 126 mg/dL (70-110)
[2023-11-29 06:13] LABS: Glucose,Whole Blood 116 mg/dL (70-110)
--- NOTE | 2023-11-29 10:25 | P.PN ---
Subjective Progress Note Date: 11/29/23 Principal diagnosis: Serotonin syndrome. Patient is a 63-year-old white female with past medical history significant for major depression and borderline personality disorder. She had a recent ER visit last month for suicidal ideation and psychiatric evaluation. She is currently lethargic and not following commands at this time. I am unable to elicit any information. On review of the ER documentation, the patient presented yesterday afternoon after reportedly taking 30 to 40 tablets of Zyprexa. This was a suicide attempt. She declined taking any other medications at that time. She also declined polysubstance abuse except for marijuana. She also was noted to be hypertensive and tachycardic. There was concerns for possible serotonin syndrome versus NMS. Of note, the patient also was agitated and tried to elope while in the ER. She was hitting her head on against the wall. She required multiple doses of Ativan, I am told a total of 5 mg. She was transferred to the intensive care unit for closer monitoring. CPK mildly elevated at 253. CBC unremarkable. BMP also unremarkable. Normal saline infusing at 130 MLS per hour. Urinalysis unremarkable. Urine toxicology screen positive for marijuana and benzodiazepines, which she was receiving here. Serum alcohol less than 10. On my evaluation, the patient has difficulty maintaining arousal. She does occ asionally roll around in bed, speech is unclear. She is on room air. SpO2 93%. She is no longer tachycardic. Heart rhythm appears normal sinus on bedside monitor. Blood pressure now normotensive. No tremors, no marked rigidity, no clonus, no hyperreflexia, no myoclonic jerks or seizures, normothermic, no diaphoresis. Poison control is involved. Progress note dated November 26, 2023. 63-year-old female who attempted suicide, and took an overdose of Zyprexa. She presented with tachycardia, and hypertension, and was thought to have serotonin syndrome. She was quite agitated. She was transferred to the intensive care unit, for further monitoring and management, and has been receiving IV Ativan, for control of her symptoms. Currently, she is resting comfortably in the ICU. The patient is currently on room air. She is receiving saline at 130 cc an hour. She did have a CAT scan of the brain which was negative. We will ask psychiatry to see her today. From the medical standpoint, the patient is stable for evaluation by psychiatry, and possible transfer to the psychiatric unit. White count 7.9, hemoglobin 13.5, hematocrit 41.4, and platelet count 246,000. Sodium 139, potassium 4.1, chlorides 115, CO2 19, BUN 7, creatinine 0.85. Glucose is 105. Calcium 8.6. Progress note dated November 27, 2023. This is a 63-year-old female who we saw initially in the intensive care unit, for serotonin syndrome, secondary to an overdose, and suicide attempt, with Zyprexa. The patient remains in the hospital, and is seen today in room 378. She is on room air. Not receiving any IV fluids. She is not particularly talkative. For her serotonin syndrome, she was treated with Ativan. She never required dexmedetomidine. Poison control was involved. CT scan of the brain was negative. No new labs today, other than a glucose of 119. Progress note dated November 28, 2023. 63-year-old female seen initially in the intensive care unit, secondary to a suicide attempt, by overdosing on Zyprexa. She initially came in with increased muscular activity, tachycardia, and hypertension, consistent with a mild to moderate episode of serotonin syndrome. The patient was transferred to the intensive care unit, where she received Ativan, for support. She has not been seen the last few days, in room 378. She is doing much better. Her is at the bedside. She is on room air, and not receiving any IV fluids. White count 9.1, hemoglobin 14.3, hematocrit 41.5, and platelet count normal at 264,000. Sodium 138, potassium 3.9, chlorides 109, CO2 22, BUN 15, creatinine 0.94. Glucose is 108. Calcium is 9.2. Progress note dated November 29, 2023. 63-year-old female who was admitted to the intensive care unit, with a Zyprexa overdose, secondary to a suicide attempt. The patient came in with tachycardia, hypertension, and agitation, with increased muscular activity. The patient was thought to have a mild to moderate case of serotonin syndrome. She was transferred to the intensive care unit, where she received IV Ativan. Currently, the patient appears relatively stable. She is on room air. No IV fluids. She is feeling back to baseline. I did have a chance to speak to her yesterday. Objective - Vital Signs Vital signs: Vital Signs Temp 97.9 F 11/29/23 08:00 Pulse 106 H 11/29/23 08:00 Resp 17 11/29/23 08:00 BP 99/57 11/29/23 08:00 Pulse Ox 96 11/29/23 08:00 FiO2 Intake & Output 11/28/23 11/29/23 11/29/23 18:59 06:59 18:59 Intake Total 1020 240 Balance 1020 240 Intake: Oral 1020 240 Other: Voiding Method Bedside Commode Bedside Commode # Voids 3 2 - Exam No acute distress, oriented 3. Currently on room air. No respiratory distress. HEENT examination is grossly unremarkable. Mucous membranes are moist. No oral lesions. Neck supple. Full range of motion. No adenopathy thyromegaly or neck vein distention. Cardiovascular examination reveals regular rhythm rate. S1-S2 normal. No S3 or S4. No discernible murmur noted. Heart rate 97 bpm. Lungs reveal clear breath sounds. Breath sounds are equal bilaterally. No adventitious lung sounds including wheezes rhonchi or crackles. Room air saturation is 97 %. Abdomen soft bowel sounds are heard. No masses or tenderness. Extremities are intact. No cyanosis clubbing or edema. Skin is without rash or lesion. Neurologic examination is brief but nonfocal. - Labs CBC & Chem 7: 11/28/23 10:08 11/28/23 10:08 Labs: Abnormal Lab Results - Last 24 Hours (Table) 11/28/23 11/28/23 11/28/23 Range/Units 10:08 16:26 20:11 Chloride 109 H (98-107) mmol/L Glucose 142 H (74-99) mg/dL POC Glucose (mg/dL) 115 H 126 H (70-110) mg/dL 11/29/23 Range/Units 06:11 Chloride (98-107) mmol/L Glucose (74-99) mg/dL POC Glucose (mg/dL) 116 H (70-110) mg/dL Assessment and Plan Assessment: Medication overdose, reportedly took 30 to 40 tablets of Zyprexa. 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 Suspect mild/moderate case of serotonin syndrome, improved on Ativan. Altered mental status, likely secondary to metabolic encephalopathy and medication effect. History of major depression and previous suicidal ideation. Marijuana use. Plan: Plan dated November 26, 2023. The patient likely had serotonin syndrome, which was mild to moderate in severity. She did not have all the abnormalities typically seen with this disorder. She did have agitation, a mild bump in her CPK, as well as hypertension, and tachycardia. She was treated in the intensive care unit, with IV Ativan. She never required dexmedetomidine, or cyproheptadine. The patient is stable to be evaluated by psychiatry. The patient is also stable to be transferred out of the intensive care unit. Labs, x-rays, and medications are all reviewed. Prognosis is guarded. Plan dated November 27, 2023. The patient likely suffered from an episode of mild/moderate serotonin syndrome. The patient is doing much better today. The patient was treated primarily with benzodiazepines, i.e. Ativan. The patient initially presented with hypertension, and tachycardia. Labs, x-rays, and medications are reviewed. Shauna castro was notified, and did participate in the care of this patient. The patient never required dexmedetomidine, or cyproheptadine. Additional recommendations and suggestions are forthcoming. The patient has been evaluated by psychiatry. We will continue to follow. Plan dated November 28, 2023. The patient is doing much better. She remains on room air, and is not receiving any IV fluids. Labs, x-rays, and medications are reviewed. The patient was admitted with a Zyprexa overdose, secondary to a suicide attempt, and developed mild/moderate serotonin syndrome. The patient was transferred to the intensive care unit, for monitoring and management. There she received IV Ativan, and never required any dexmedetomidine, or cyproheptadine. We will continue to follow. Prognosis is guarded. Her is at the bedside. Plan dated November 29, 2023. The patient continues to improve. She is seen and examined in room 378. Her heart rate is in the normal range. Her blood pressure is back to normal. The patient is not agitated, and has not having any muscular hyperactivity. She never had a fever. Labs, x-rays, and medications are reviewed. The patient continues on room air. She is not receiving any IV fluids. Prognosis is guarded. She has been seen by psychiatry. Time with Patient: Less than 30
[2023-11-29 11:22] LABS: Glucose,Whole Blood 113 mg/dL (70-110)
[2023-11-29] MEDS: BENZTROPINE MESYLATE 1 MG TAB PO SCH (14:33)
--- NOTE | 2023-11-29 14:55 | P.PN ---
Subjective Progress Note Date: 11/28/23 63-year-old white female with past medical history significant for major depression and borderline personality disorder. She had a recent ER visit last month for suicidal ideation and psychiatric evaluation. She is currently lethargic and not following commands at this time. I am unable to elicit any in formation. On review of the ER documentation, the patient presented yesterday afternoon after reportedly taking 30 to 40 tablets of Zyprexa. This was a suicide attempt. She declined taking any other medications at that time. She also declined polysubstance abuse except for marijuana. She also was noted to be hypertensive and tachycardic. There was concerns for possible serotonin syndrome versus NMS. Of note, the patient also was agitated and tried to elope while in the ER. She was hitting her head on against the wall. She required multiple doses of Ativan, I am told a total of 5 mg. She was transferred to the intensive care unit for closer monitoring. CPK mildly elevated at 253. CBC unremarkable. BMP also unremarkable. Normal saline infusing at 130 MLS per hour. Urinalysis unremarkable. Urine toxicology screen positive for marijuana and benzodiazepines, which she was receiving here. Serum alcohol less than 10. On my evaluation, the patient has difficulty maintaining arousal. She does occasionally roll around in bed, speech is unclear. She is on room air. SpO2 93%. She is no longer tachycardic. Heart rhythm appears normal sinus on bedside monitor. Blood pressure now normotensive. No tremors, no marked rigidity, no clonus, no hyperreflexia, no myoclonic jerks or seizures, normothermic, no diaphoresis. Poison control is involved. Objective - Vital Signs Vital signs: Vital Signs Temp 98.3 F 11/28/23 07:51 Pulse 104 H 11/28/23 07:51 Resp 17 11/28/23 07:51 BP 113/72 11/28/23 07:51 Pulse Ox 97 11/28/23 07:51 FiO2 Intake & Output 11/27/23 11/28/23 11/28/23 18:59 06:59 18:59 Intake Total 225 Balance 225 Intake: Oral 225 Other: Voiding Method Bedside Commode Bedside Commode # Voids 1 1 - Exam No acute distress, oriented 3. Currently on room air. No respiratory distress. HEENT examination is grossly unremarkable. Mucous membranes are moist. No oral lesions. Neck supple. Full range of motion. No adenopathy thyromegaly or neck vein distention. Cardiovascular examination reveals regular rhythm rate. S1-S2 normal. No S3 or S4. No discernible murmur noted. Heart rate 84 bpm. Lungs reveal clear breath sounds. Breath sounds are equal bilaterally. No adventitious lung sounds including wheezes rhonchi or crackles. Room air saturation is 94 %. Abdomen soft bowel sounds are heard. No masses or tenderness. Extremities are intact. No cyanosis clubbing or edema. Skin is without rash or lesion. Neurologic examination is brief but nonfocal. - Labs CBC & Chem 7: 11/28/23 10:08 11/28/23 10:08 Labs: Abnormal Lab Results - Last 24 Hours (Table) 11/27/23 Range/Units 11:19 POC Glucose (mg/dL) 203 H (70-110) mg/dL Assessment and Plan Assessment: 1. Medication overdose; patient took 30 to 40 tablets of Zyprexa 2. Suicidal attempt; patient continues to have sitter at bedside with suicide precautions 3. Possible serotonin syndrome; resolved patient was treated with Ativan; 4. Altered mental status; likely metabolic encephalopathy resulting from medication effect 5. History of major depression and previous suicidal ideation --Patient remained stable Has been evaluated by psychiatry and is recommended inpatient psych evaluation and treatment --Patient is medically stable for transfer to mental health unit -- Case management to work on arrangements for patient transfer to mental health unit at the [facility]
--- NOTE | 2023-11-29 15:13 | P.PN ---
Subjective Progress Note Date: 11/29/23 63-year-old white female with past medical history significant for major depression and borderline personality disorder. She had a recent ER visit last month for suicidal ideation and psychiatric evaluation. She is currently lethargic and not following commands at this time. I am unable to elicit any in formation. On review of the ER documentation, the patient presented yesterday afternoon after reportedly taking 30 to 40 tablets of Zyprexa. This was a suicide attempt. She declined taking any other medications at that time. She also declined polysubstance abuse except for marijuana. She also was noted to be hypertensive and tachycardic. There was concerns for possible serotonin syndrome versus NMS. Of note, the patient also was agitated and tried to elope while in the ER. She was hitting her head on against the wall. She required multiple doses of Ativan, I am told a total of 5 mg. She was transferred to the intensive care unit for closer monitoring. CPK mildly elevated at 253. CBC unremarkable. BMP also unremarkable. Normal saline infusing at 130 MLS per hour. Urinalysis unremarkable. Urine toxicology screen positive for marijuana and benzodiazepines, which she was receiving here. Serum alcohol less than 10. On my evaluation, the patient has difficulty maintaining arousal. She does occasionally roll around in bed, speech is unclear. She is on room air. SpO2 93%. She is no longer tachycardic. Heart rhythm appears normal sinus on bedside monitor. Blood pressure now normotensive. No tremors, no marked rigidity, no clonus, no hyperreflexia, no myoclonic jerks or seizures, normothermic, no diaphoresis. Poison control is involved. 11/29/2023 Patient is seen and evaluated with family at bedside; wants to be discharged home Vital signs are reviewed and stable with temperature 97.9, pulse 106, respirations 17 and blood pressure of 99/54 Patient is status post mild serotonin syndrome and treated with IV Ativan Currently medically stable for transfer to mental health unit Objective - Vital Signs Vital signs: Vital Signs Temp 97.9 F 11/29/23 08:00 Pulse 106 H 11/29/23 08:00 Resp 17 11/29/23 08:00 BP 99/57 11/29/23 08:00 Pulse Ox 96 11/29/23 08:00 FiO2 Intake & Output 11/28/23 11/29/23 11/29/23 18:59 06:59 18:59 Intake Total 1020 240 Balance 1020 240 Intake: Oral 1020 240 Other: Voiding Method Bedside Commode Bedside Commode # Voids 3 2 - Exam No acute distress, oriented 3. Currently on room air. No respiratory distress. HEENT examination is grossly unremarkable. Mucous membranes are moist. No oral lesions. Neck supple. Full range of motion. No adenopathy thyromegaly or neck vein distention. Cardiovascular examination reveals regular rhythm rate. S1-S2 normal. No S3 or S4. No discernible murmur noted. Heart rate 84 bpm. Lungs reveal clear breath sounds. Breath sounds are equal bilaterally. No adventitious lung sounds including wheezes rhonchi or crackles. Room air saturation is 94 %. Abdomen soft bowel sounds are heard. No masses or tenderness. Extremities are intact. No cyanosis clubbing or edema. Skin is without rash or lesion. Neurologic examination is brief but nonfocal. - Labs CBC & Chem 7: 11/28/23 10:08 11/28/23 10:08 Labs: Abnormal Lab Results - Last 24 Hours (Table) 11/28/23 11/28/23 11/28/23 Range/Units 10:08 16:26 20:11 Chloride 109 H (98-107) mmol/L Glucose 142 H (74-99) mg/dL POC Glucose (mg/dL) 115 H 126 H (70-110) mg/dL 11/29/23 Range/Units 06:11 Chloride (98-107) mmol/L Glucose (74-99) mg/dL POC Glucose (mg/dL) 116 H (70-110) mg/dL Assessment and Plan Assessment: 1. Medication overdose; patient took 30 to 40 tablets of Zyprexa 2. Suicidal attempt; patient continues to have sitter at bedside with suicide precautions 3. Possible serotonin syndrome; resolved patient was treated with Ativan; 4. Altered mental status; likely metabolic encephalopathy resulting from medication effect 5. History of major depression and previous suicidal ideation --Patient remained stable Has been evaluated by psychiatry and is recommended inpatient psych evaluation and treatment --Patient is medically stable for transfer to mental health unit -- Case management to work on arrangements for patient transfer to mental health unit at the [place]
[2023-11-29 16:46] LABS: Glucose,Whole Blood 114 mg/dL (70-110)
[2023-11-29 18:44] LABS: Appearance,Urine Cloudy (Clear); Bacteria,Urine Moderate /hpf; Bilirubin,Urine Negative (Negative); Blood,Urine Large (Negative); Color,Urine Light Yellow; Glucose,Urine (UA) Negative (Negative); Ketones,Urine Negative (Negative); Leukocyte Esterase,Urine Large (Negative); Mucus,Urine Rare /hpf; Nitrite,Urine Positive (Negative); Protein,Urine 1+ (Negative); RBC,Urine 25 /hpf (0-5); Specific Gravity,Urine 1.016 (1.001-1.035); Squamous Epithelial Cell,Urine 6 /hpf (0-4); Urobilinogen,Urine <2.0 mg/dL (<2.0); WBC,Urine 149 /hpf (0-5)
[2023-11-29 21:01] LABS: Glucose,Whole Blood 131 mg/dL (70-110)
[2023-11-30] MEDS: SODIUM CHLORIDE 0.9% 1,000 ML IV SCH (02:50)
[2023-11-30 08:15] VITALS: RESP 17
[2023-11-30] MEDS: ACETAMINOPHEN TAB 325 MG TAB PO PRN (08:32)
[2023-11-30] MEDS ORDERED: ACETAMINOPHEN IV (For NPO) 1,000 MG in EMPTY BAG 1 BAG IVPB PRN (10:20)
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
[2023-11-30] MEDS ORDERED: MAGNESIUM HYDROXIDE 2,400 MG/30 ML CUP PO PRN (11:05)
[2023-11-30] MEDS: polyethylene glycoL 3350 17 GM POWD.PACK PO SCH (13:46)
--- NOTE | 2023-11-30 13:46 | P.PN ---
Subjective Progress Note Date: 11/30/23 Patient is a 63-year-old white female with past medical history significant for major depression and borderline personality disorder. She had a recent ER visit last month for suicidal ideation and psychiatric evaluation. She is currently lethargic and not following commands at this time. I am unable to elicit any information. On review of the ER documentation, the patient presented yesterday afternoon after reportedly taking 30 to 40 tablets of Zyprexa. This was a suicide attempt. She declined taking any other medications at that time. She also declined polysubstance abuse except for marijuana. She also was noted to be hypertensive and tachycardic. There was concerns for possible serotonin syndrome versus NMS. Of note, the patient also was agitated and tried to elope while in the ER. She was hitting her head on against the wall. She required multiple doses of Ativan, I am told a total of 5 mg. She was transferred to the intensive care unit for closer monitoring. CPK mildly elevated at 253. CBC unremarkable. BMP also unremarkable. Normal saline infusing at 130 MLS per hour. Urinalysis unremarkable. Urine toxicology screen positive for marijuana and benzodiazepines, which she was receiving here. Serum alcohol less than 10. On my evaluation, the patient has difficulty maintaining arousal. She does occasionally roll around in bed, speech is unclear. She is on room air. SpO2 93%. She is no longer tachycardic. Heart rhythm appears normal sinus on bedside monitor. Blood pressure now normotensive. No tremors, no marked rigidity, no clonus, no hyperreflexia, no myoclonic jerks or seizures, normothermic, no diaphoresis. Poison control is involved. Progress note dated November 26, 2023. 63-year-old female who attempted suicide, and took an overdose of Zyprexa. She presented with tachycardia, and hypertension, and was thought to have serotonin syndrome. She was quite agitated. She was transferred to the intensive care unit, for further monitoring and management, and has been receiving IV Ativan, for control of her symptoms. Currently, she is resting comfortably in the ICU. The patient is currently on room air. She is receiving saline at 130 cc an hour. She did have a CAT scan of the brain which was negative. We will ask psychiatry to see her today. From the medical standpoint, the patient is stable for evaluation by psychiatry, and possible transfer to the psychiatric unit. Alize count 7.9, hemoglobin 13.5, hematocrit 41.4, and platelet count 246,000. Sodium 139, potassium 4.1, chlorides 115, CO2 19, BUN 7, creatinine 0.85. Glucose is 105. Calcium 8.6. Progress note dated November 27, 2023. This is a 63-year-old female who we saw initially in the intensive care unit, for serotonin syndrome, secondary to an overdose, and suicide attempt, with Zyprexa. The patient remains in the hospital, and is seen today in room 378. She is on room air. Not receiving any IV fluids. She is not particularly talkative. For her serotonin syndrome, she was treated with Ativan. She never required dexmedetomidine. Poison control was involved. CT scan of the brain was negative. No new labs today, other than a glucose of 119. Progress note dated November 28, 2023. 63-year-old female seen initially in the intensive care unit, secondary to a suicide attempt, by overdosing on Zyprexa. She initially came in with increased muscular activity, tachycardia, and hypertension, consistent with a mild to moderate episode of serotonin syndrome. The patient was transferred to the intensive care unit, where she received Ativan, for support. She has not been seen the last few days, in room 378. She is doing much better. Her is at the bedside. She is on room air, and not receiving any IV fluids. White count 9.1, hemoglobin 14.3, hematocrit 41.5, and platelet count normal at 264,000. Sodium 138, potassium 3.9, chlorides 109, CO2 22, BUN 15, creatinine 0.94. Glucose is 108. Calcium is 9.2. Progress note dated November 29, 2023. 63-year-old female who was admitted to the intensive care unit, with a Zyprexa overdose, secondary to a suicide attempt. The patient came in with tachycardia, hypertension, and agitation, with increased muscular activity. The patient was thought to have a mild to moderate case of serotonin syndrome. She was transferred to the intensive care unit, where she received IV Ativan. Currently, the patient appears relatively stable. She is on room air. No IV fluids. She is feeling back to baseline. I did have a chance to speak to her yesterday. On today's evaluation of 11/30/2023, the patient is being seen for a follow-up. This 63-year-old female patient with history of major depression and borderline personality disorder and the patient had come into the hospital after taking around 40 tablets of Zyprexa. The patient currently has a suicide precaution with a sitter at the bedside. The patient attempted suicide with those medications. No signs of any acute serotonergic syndrome at this point in time. No agitation. The patient is calm and comfortable and responding and following commands and answering questions appropriately. No new complaints otherwise for now. No new labs from today. Most recent labs are from 11/28/2023 and was essentially within normal limits. UA from yesterday was abnormal and this is being managed by the medical group and the patient is currently on IV Rocephin. Cultures are still pending for now. The plan is to send this patient to the inpatient psychiatric unit Her current medication include Cogentin 1 mg p.o. twice a day, Invega 3 mg p.o. nightly and Lexapro 10 mg p.o. daily. Objective - Vital Signs Vital signs: Vital Signs Temp 100.2 F H 11/30/23 06:40 Pulse 100 11/30/23 08:32 Resp 17 11/30/23 08:32 BP 106/67 11/30/23 06:40 Pulse Ox 93 L 11/30/23 06:40 FiO2 Intake & Output 11/29/23 11/30/23 11/30/23 18:59 06:59 18:59 Intake Total 240 Output Total 350 700 Balance -110 -700 Weight 72.6 kg Intake: Oral 240 Output: Urine 350 700 Other: Voiding Method Bedside Commode Toilet Toilet - Exam No acute distress, oriented 3. Currently on room air. No respiratory distress. HEENT examination is grossly unremarkable. Mucous membranes are moist. No oral lesions. Neck supple. Full range of motion. No adenopathy thyromegaly or neck vein distention. Cardiovascular examination reveals regular rhythm rate. S1-S2 normal. No S3 or S4. No discernible murmur noted. Lungs reveal clear breath sounds. Breath sounds are equal bilaterally. No adventitious lung sounds including wheezes rhonchi or crackles. Room air saturation is 97 %. Abdomen soft bowel sounds are heard. No masses or tenderness. Extremities are intact. No cyanosis clubbing or edema. Skin is without rash or lesion. Neurologic examination is brief but nonfocal. No agitation. Alert and awake and communicating. - Labs CBC & Chem 7: 11/28/23 10:08 11/28/23 10:08 Labs: Abnormal Lab Results - Last 24 Hours (Table) 11/29/23 11/29/23 11/29/23 Range/Units 11:19 16:37 18:00 POC Glucose (mg/dL) 113 H 114 H (70-110) mg/dL Urine Appearance Cloudy H (Clear) Urine Protein 1+ H (Negative) Urine Blood Large H (Negative) Urine Nitrite Positive H (Negative) Ur Leukocyte Esterase Large H (Negative) Urine RBC 25 H (0-5) /hpf Urine WBC 149 H (0-5) /hpf Ur Squamous Epith Cells 6 H (0-4) /hpf Urine Bacteria Moderate H (None) /hpf Urine Mucus Rare H (None) /hpf 11/29/23 Range/Units 21:00 POC Glucose (mg/dL) 131 H (70-110) mg/dL Urine Appearance (Clear) Urine Protein (Negative) Urine Blood (Negative) Urine Nitrite (Negative) Ur Leukocyte Esterase (Negative) Urine RBC (0-5) /hpf Urine WBC (0-5) /hpf Ur Squamous Epith Cells (0-4) /hpf Urine Bacteria (None) /hpf Urine Mucus (None) /hpf Assessment and Plan Plan: Medication overdose, reportedly took 30 to 40 tablets of Zyprexa. Recovered and the patient is stable at this point in time. Suicide attempt, currently on suicide precautions with industrial safety and health specialist. Suspect mild/moderate case of serotonin syndrome, improved on Ativan. Altered mental status, likely secondary to metabolic encephalopathy and medication effect. History of major depression and previous suicidal ideation. Marijuana use. Plan Patient is currently on a combination of Cogentin, Invega and Lexapro. Clinically stable and hemodynamically stable Plan is to transfer this patient to inpatient psychiatric evaluation and treatment. Sitter at the bedside suicide precautions are still in progress.
[2023-11-30 15:13] VITALS: BP 99/61; PULSE 95; TEMP 99.2
[2023-11-30] MEDS: ONDANSETRON 4 MG TAB PO STA (17:35)
== END 2023-11-30 17:41 | DRG 917 ==
LOC: EC 10:47 → 2SICU 18:36 → 3SCARD 11-26 13:49 → 4SSUR 11-30 02:22
PROVIDERS: ADMIT Family Medicine; ATTEND Family Medicine
DX: T43.592A Poisoning by other antipsychotics and neuroleptics, intentional self-harm, initial encounter (principal); G92.8 Other toxic encephalopathy; F03.911 Unspecified dementia, unspecified severity, with agitation; F31.9 Bipolar disorder, unspecified; F60.3 Borderline personality disorder; F17.210 Nicotine dependence, cigarettes, uncomplicated; T43.225A Adverse effect of selective serotonin reuptake inhibitors, initial encounter; I10 Essential (primary) hypertension; R00.0 Tachycardia, unspecified; F43.21 Adjustment disorder with depressed mood; W22.03XA Walked into furniture, initial encounter; Y92.003 Bedroom of unspecified non-institutional (private) residence as the place of occurrence of the external cause; W22.01XA Walked into wall, initial encounter; Z76.5 Malingerer [conscious simulation]; Z78.1 Physical restraint status; Z79.899 Other long term (current) drug therapy; Z90.710 Acquired absence of both cervix and uterus; Z91.410 Personal history of adult physical and sexual abuse; Z91.51 Personal history of suicidal behavior; Z98.51 Tubal ligation status; Z88.5 Allergy status to narcotic agent; Z88.1 Allergy status to other antibiotic agents; Z91.048 Other nonmedicinal substance allergy status; Z90.49 Acquired absence of other specified parts of digestive tract
CPT/HCPCS: 36415; 70450; 80048; 80053; 80143; 80179; 80306; 80320; 81001; 81003; 82550; 83605; 83690; 84132; 84145; 85025; 85610; 86140; 87635; 93005; 96361; 96372; 96374; 96375; 96376; 99291

== ENCOUNTER 2023-12-11 06:00 | Day surgery (SDC) | payer MEDICARE, OTHER ==
[2023-12-10 11:48] VITALS: BMI 29.2
[2023-12-11] MEDS: LACTATED RINGERS 1,000 ML IV SCH (06:32)
[2023-12-11 06:33] VITALS: TEMP 96.8
[2023-12-11] MEDS ORDERED: PROPOFOL 10 MG/ML 20 ML VIAL IV ONE (06:58)
[2023-12-11] MEDS ORDERED: LIDOCAINE 1% INJ 10MG/ML (20 ML MDV) ONE (06:58)
--- NOTE | 2023-12-11 07:29 | P.PCN ---
Date of Procedure: 12/11/23 Procedure(s) Performed: Brief history: Patient is a pleasant 63-year-old white femalescheduled for an elective upper endoscopy as well as colonoscopy as a part of evaluation ofAbdominal pain and black tarry stools of 42 weeks duration. Procedure performed: EsophagogastroduodenoscopyWith biopsy ColonoscopyWith snare polypectomy Preoperative diagnosis: Abdominal pain and black tarry stools of 2 months duration Anesthesia: MAC Procedure: After informed consent was obtained from the patient was brought into the endoscopy unit and IV sedation was administered by anesthesia under continuous monitoring. Initially upper endoscopy was done. The Olympus GF 160 video endoscope was inserted inserted into the mouth and esophagus intubated wiIn ththout any difficulty and was gradually advanced into the stomach and duodenum and carefully examined. The second part of the duodenum appeared normal. The bulb of the duodenum there was a 1 cm polyp that was biopsied. This was located along the duodenal sweep.The scope was then withdrawn into the stomach adequately insufflated with air and upon careful examination the antrumHad mild gastritis and biopsies were done from this area. Mucosa of the body, cardia and fundus appeared normal. The scope was then withdrawn into the esophagus. The GE junction waStopated at 40 cm to the incisors. It appeared regular with no erythema erosions or ulcerations. Rest of the esophagus appeared normal. Patient tolerated the procedure well. At this time the patient continued to remain sedation. Initial digital rectal examination was normal. Olympus CF 160 video colonoscope was then inserted into the rectum and gradually advanced to the cecum without any difficulty. Careful examination was performed as the scope was gradually being withdrawn. The prep was excellent. The cecum,Appeared normal. In the ascending colon there was a 5 limited polyp removed by cold snare polypectomy. In the transverse colonThere was a 4 mm and1 cm polyp removed by snare polypectomy. In the descending colon there was a 3 mm polyp removed by snare polypectomy.Rest of thesigmoid colon and rectum appeared normal. In the proximal rectum there was a 4 mm polyp removed by snare polypectomy. Retroflexion was performed in the rectum and no lesions were noted. Patient tolerated the procedure well. Impression: 1.Upper endoscopy revealed mild antral gastritis and 1 cm duodenal polyp along the duodenal sweep status post biopsy 2.Colonoscopy revealed: a) 5 mm ascending colon polyp serous was snare polypectomy b) 1 cm and 4 mm transverse colon polyp status post snare polypectomy c) 3 mm ascending colon polyp status post polypectomy d)4 mm rectal polyp status post-polypectomy Recommendations: Findings of this examination were discussed with the patient as well asHis family. She was advised to follow up the biopsy results. If the biopsies adenoma she can have a repeat colonoscopy in 3 years.
[2023-12-11 07:49] VITALS: BP 101/69; PULSE 71; RESP 18
== END 2023-12-11 08:16 | disposition home or self-care (01) ==
LOC: ORWHC2ENDO 06:00
PROVIDERS: ATTEND Internal Medicine Gastroenterology
DX: D12.2 Benign neoplasm of ascending colon (principal); D12.3 Benign neoplasm of transverse colon; D12.4 Benign neoplasm of descending colon; D12.8 Benign neoplasm of rectum; K29.50 Unspecified chronic gastritis without bleeding; K92.1 Melena; K31.7 Polyp of stomach and duodenum; Z79.899 Other long term (current) drug therapy; Z88.4 Allergy status to anesthetic agent
CPT/HCPCS: 88305; 45385; 43239; J2001; J2704

== ENCOUNTER → 2024-01-07 | Outpatient (CLI) | payer OTHER ==
--- NOTE | 2024-01-07 08:07 | MM ---
Reason for Exam: Clinical finding. Last mammogram was performed 1 year(s) and 1 month(s) ago. Patient History: Menarche at age 12. First Full-Term at age 33. Late child-bearing (after 30). Left ovary removed at age 47. Right ovary removed at age 47. Hysterectomy at age 47. Postmenopausal. 05/27/2006, Benign Core Biopsy on the right side. Risk Values: Traci 5 year model risk: 2.6%. NCI Lifetime model risk: 10.7%. Prior Study Comparison: 11/08/2018 Bilateral Screening Mammogram, [facility]. 10/30/2020 Bilateral Screening Mammogram, [facility]. 10/31/2021 Bilateral Screening Mammogram, [facility]. 11/25/2022 Bilateral MG screening mammo w CAD, [facility]. 11/27/2022 Left US breast workup LT, [facility]. 06/25/2023 Left US breast limited LT, [facility]. Tissue Density: The breasts are heterogeneously dense, which may obscure small masses. Findings: Analyzed By CAD. Stable nodularity seen bilaterally. No new mass or nodule. No area of distortion or suspicious microcalcifications. Overall Assessment: Incomplete: need additional imaging evaluation, BI-RAD 0 Management: Diagnostic Breast Ultrasound of the left breast. . Results were given to the patient verbally at the time of exam. Patient should continue monthly self-breast exams. A clinical breast exam by your physician is recommended on an annual basis. This exam should not preclude additional follow-up of suspicious palpable abnormalities. Note on Traci scores and lifetime risk: 1. A Traci score greater than 3% is considered moderate risk. If this is the case, consider specialist referral to assess eligibility for a risk reducing agent. 2. If overall lifetime risk for the development of breast cancer is 20% or higher, the patient may qualify for future screening with alternating mammogram and breast MRI. Electronically signed and approved by: Solo Valentin M.D. Radiologis
--- NOTE | 2024-01-07 09:19 | USB ---
Reason for Exam: Follow-up at short interval from prior study. Patient History: Menarche at age 12. First Full-Term at age 33. Late child-bearing (after 30). Left ovary removed at age 47. Right ovary removed at age 47. Hysterectomy at age 47. Postmenopausal. 05/27/2006, Benign Core Biopsy on the right side. Risk Values: Traci 5 year model risk: 2.6%. NCI Lifetime model risk: 10.7%. Technique: Method: Targeted. Prior Study Comparison: 10/30/2020 Bilateral Screening Mammogram, [facility]. 10/31/2021 Bilateral Screening Mammogram, [facility]. 11/25/2022 Bilateral MG screening mammo w CAD, [facility]. Findings: The medial section of the breast of the left breast, the axilla of the left breast and the retroareolar of the left breast were scanned. 2 adjacent cysts or septated cyst left breast measuring 8 x 4 mm 1 cm from the nipple is unchanged. There is also mildly prominent duct. No solid mass identified. Findings are stable for one year. Overall Assessment: Benign, BI-RAD 2 Management: Screening Mammogram of both breasts in 1 year. A clinical breast exam by your physician is recommended on an annual basis and results should be correlated with mammographic findings. This exam should not preclude additional follow-up of suspicious palpable abnormalities. Results were given to the patient verbally at the time of exam. Electronically signed and approved by: Solo Valentin M.D. Radiologis
== END | disposition home or self-care (01) ==
LOC: RADMAMWWP 07:45
PROVIDERS: ATTEND General Practice
DX: R92.333 Mammographic heterogeneous density, bilateral breasts (principal); Z78.0 Asymptomatic menopausal state
CPT/HCPCS: 77062; 77066

== ENCOUNTER → 2024-01-11 | Outpatient (CLI) | payer OTHER ==
--- NOTE | 2024-01-11 12:29 | CT ---
EXAMINATION TYPE: CT chest wo con DATE OF EXAM: 01/11/2024 COMPARISON: 10/23/2022 HISTORY: left back lump, causing pain, pt noticed it [address] DLP: 284 mGycm, Automated exposure control for dose reduction was used. CONTRAST: Performed injected with 0 mL of Isovue 300. TECHNIQUE: Axial images were obtained at 5 mm thick sections. Reconstructed images are reviewed on [employer] computer in the coronal plane. FINDINGS: Portion of the thyroid visualized is normal. No suspicious lung nodules or focal infiltrates are present. No enlarged mediastinal or hilar adenopathy is evident. The ascending aorta diameter at the level o f the main pulmonary artery is 3.1 cm. The main pulmonary artery diameter at the bifurcation is 2.[address] sections are obtained through the upper abdomen. There is a 2.6 cm hypodensity within the posterior right upper lobe liver present previously. Cholecystectomy has been performed. No obvious left back lump is identified. IMPRESSION: 1. No acute pulmonary process. 2. No acute abnormality to account for patient complaint.
== END | disposition home or self-care (01) ==
LOC: RADCTMAIN 08:41
PROVIDERS: ATTEND Family Medicine
DX: M95.9 Acquired deformity of musculoskeletal system, unspecified (principal); R22.2 Localized swelling, mass and lump, trunk
CPT/HCPCS: 71250

== ENCOUNTER → 2024-03-16 | Outpatient (CLI) | payer OTHER ==
--- NOTE | 2024-03-16 11:43 | US ---
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 Kei rison images were obtained of the right. FINDINGS/IMPRESSION: Palpable area noted left scapula. Upon tech palpitation, the left and right sca pula appear to feel the same. Left scapula scanned at area of palpable. Right side scanned for comparison No abnormality appreciated on ultrasound today. Retrospectively on previous CT chest there appears to be bilateral soft tissue masses just anterior-inferior to the bilateral scapula with left greater th an right. 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
== END | disposition home or self-care (01) ==
LOC: RADUSWWP 10:05
PROVIDERS: ATTEND Family Medicine
DX: D21.3 Benign neoplasm of connective and other soft tissue of thorax (principal)

== ENCOUNTER 2024-04-27 14:42 | Emergency (ER) | payer MEDICARE ==
[2024-04-28] MEDS ORDERED: LORazepam 1 MG TAB ONE (11:34)
[2024-04-28] MEDS ORDERED: LORazepam 2 MG/ML INJ ONE (11:42)
[2024-04-28] MEDS ORDERED: ACETAMINOPHEN TAB 325 MG TAB ONE (17:32)
[2024-04-28] MEDS ORDERED: ACETAMINOPHEN TAB 500 MG TAB ONE (17:35)
[2024-04-29] MEDS ORDERED: ACETAMINOPHEN TAB 500 MG TAB ONE (01:27)
== END 2024-04-28 06:45 ==
LOC: EC 14:42
CPT/HCPCS: 99284

== ENCOUNTER 2024-06-15 12:36 | Emergency (ER) | payer MEDICARE ==
[2024-06-15] MEDS: QUEtiapine 50 MG TAB PO STA (13:07)
[2024-06-15 13:22] LABS: Appearance,Urine Cloudy (Clear); Bacteria,Urine Rare /hpf; Bilirubin,Urine Negative (Negative); Blood,Urine Negative (Negative); Color,Urine Colorless; Glucose,Urine (UA) Negative (Negative); Ketones,Urine Negative (Negative); Leukocyte Esterase,Urine Moderate (Negative); Mucus,Urine Rare /hpf; Nitrite,Urine Negative (Negative); PH, Urine 6.5 (5.0-8.0); Protein,Urine Negative (Negative); RBC,Urine 3 /hpf (0-5); Specific Gravity,Urine 1.004 (1.001-1.035); Squamous Epithelial Cell,Urine 6 /hpf (0-4); Urobilinogen,Urine <2.0 mg/dL (<2.0); WBC,Urine 9 /hpf (0-5)
--- NOTE | 2024-06-15 13:34 | ED ---
General Adult HPI - General Chief complaint: Psychiatric Symptoms Stated complaint: Petition/Mental health Time Seen by Provider: 06/15/24 12:40 Source: patient, RN notes reviewed, old records reviewed Mode of arrival: ambulatory Limitations: no limitations - History of Present Illness Initial comments: Patient is a 69-year-old male who presents emergency department complaining of ideations, auditory hallucinations. Does not go into details regarding hallucinations but states she has had suicidal ideations in the been worse lately with plan to overdose on medications. Does have a history of attempted overdose. No recent attempt at trying to harm herself or overdose attempt. Denies any homicidal ideations, times complaints. Denies any drug use. Presents for psychiatric evaluation. - Related Data Home Medications Medication Instructions Recorded Confirmed Escitalopram Oxalate [Lexapro] 30 mg PO DAILY 07/03/23 06/15/24 Omeprazole [PriLOSEC] 20 mg PO DAILY 11/05/23 06/15/24 Benztropine Mesylate [Cogentin] 1 mg PO BID 12/10/23 06/15/24 Clobetasol Propionate [Temovate 1 applic TOPICAL BID 06/15/24 06/15/24 0.05% Oint] Eucerin Cream 1 applic TOPICAL TID PRN 06/15/24 06/15/24 Melatonin 3 mg PO HS PRN 06/15/24 06/15/24 Petrolatum, White [Aquaphor] 1 applic TOPICAL HS 06/15/24 06/15/24 Urea 40% Cream 1 applic TOPICAL TID 06/15/24 06/15/24 busPIRone HCL 15 mg PO TID 06/15/24 06/15/24 fluPHENAZine [Prolixin 1MG] 1 mg PO BID 06/15/24 06/15/24 fluPHENAZine decanoate [Prolixin 12.5 mg IM Q28D 06/15/24 06/15/24 Decanoate] metFORMIN HCL ER [Glucophage XR] 500 mg PO DAILY 06/15/24 06/15/24 Allergies Allergy/AdvReac Type Severity Reaction Status Date / Time adhesive tape Allergy Rash/Hives Verified 06/15/24 13:58 chlorpromazine Allergy Anaphylaxis Verified 06/15/24 13:58 [From Thorazine] codeine Allergy Rash/Hives Verified 10/02/24 13:58 haloperidol [From Haldol] Allergy Rash/tardive Verified 06/15/24 13:58 dyskinesia latex Allergy "rash" Verified 06/15/24 13:58 nicotine [From Nicoderm CQ] Allergy Rash/Hives Verified 06/15/24 13:58 Review of Systems ROS Statement: Those systems with pertinent positive or pertinent negative responses have been documented in the HPI. Review of Systems: CONST: Denies fever EYES: Denies blurry vision ENT: Denies nasal congestion C/V: Denies Chest pain RESP: Denies shortness of breath GI: Denies abdominal pain : Denies dysuria SKIN: Denies rash. MSK: Denies joint pain. NEURO: Denies headache ROS Other: All systems not noted in ROS Statement are negative. Past Medical History Past Medical History: No Reported History Additional Past Medical History / Comment(s): Multiple personaility, daily marijuana use, major depressive disorder History of Any Multi-Drug Resistant Organisms: None Reported Past Surgical History: Section, Cholecystectomy, Hysterectomy, Orthopedic Surgery, Tubal Ligation Additional Past Surgical History / Comment(s): PILONIADAL CYSTECTOMY. RT ROTATOR CUFF REPAIR Past Anesthesia/Blood Transfusion Reactions: Motion Sickness Past Psychological History: Depression Smoking Status: Former smoker Past Alcohol Use History: None Reported Past Drug Use History: Marijuana - Past Family History Mother History Unknown: Yes Family Medical History: No Reported History Additional Family Medical History / Comment(s): Ca, unknown kind Father History Unknown: Yes Additional Family Medical History / Comment(s): Ca, unknown kind General Exam - General Exam Comments Initial Comments: General: Appears in no acute distress. HEAD: Normal with no signs of head trauma. EYES: PERRLA, EOMI, conjunctiva normal, no discharge. ENT: Hearing grossly intact RESPIRATORY: Clear breath sounds bilaterally. No wheezes, rales, or rhonchi. C/V: Regular rate and rhythm. S1 and S2 auscultated, peripheral pulses 2+ and intact throughout ABD: Abd is soft, nontender, nondistended EXT: Normal range of motion, no obvious deformity SKIN: Old self injuring scars over left forearm. NEURO: Alert and oriented x 4. Limitations: no limitations Course Vital Signs 06/15/24 12:37 Temperature 97.7 F Pulse Rate 104 H Respiratory 20 Rate Blood Pressure 168/95 O2 Sat by Pulse 97 Oximetry Medical Decision Making - Medical Decision Making Was pt. sent in by a medical professional or institution (MUMTAZ Sheehan, PRODUCTION CONSULTANT, urgent care, hospital, or half-way...) When possible be specific @ -No Did you speak to anyone other than the patient for history (EMS, parent, family, police, friend...)? What history was obtained from this source @ -No Did you review nursing and triage notes (agree or disagree)? Why? @ -I reviewed and agree with nursing and triage notes Were old charts reviewed (outside hosp., previous admission, EMS record, old EKG, old radiological studies, urgent care reports/EKG's, half-way records)? Report findings @ -Reviewed old charts which revealed patient presented for prior mental health visits including when I evaluate the patient back in October 2023. Differential Diagnosis (chest pain, altered mental status, abdominal pain women, abdominal pain men, vaginal bleeding, weakness, fever, dyspnea, syncope, headache, dizziness, GI bleed, back pain, seizure, CVA, palpatations, mental health, musculoskeletal)? @ -Differential Mental Health Depression, anxiety, bipolar, psychosis, schizophrenia, borderline personality, situational depression, adjustment disorder, behavioral disorder, brain tumor, malingering, substance abuse, encephalopathy, medication reaction, dementia, hypothyroidism, degenerative neurologic disorder, lupus.... This is not meant to be all-inclusive list EKG interpreted by me (3pts min.). @ -As above X-rays interpreted by me (1pt min.). @ -None done CT interpreted by me (1pt min.). @ -None done U/S interpreted by me (1pt. min.). @ -None done What testing was considered but not performed or refused? (CT, X-rays, U/S, labs)? Why? @ -None What meds were considered but not given or refused? Why? @ -None Did you discuss the management of the patient with other professionals (professionals i.e. MUMTAZ Sheehan, PRODUCTION CONSULTANT, lab, RT, psych nurse, sexual assault social worker, kiln worker, teacher, campus security officer, dependency case manager)? Give summary @ -EPS notified of the consult Was smoking cessation discussed for >3mins.? @ -No Was critical care preformed (if so, how long)? @ -No Were there social determinants of health that impacted care today? How? (Homelessness, low income, unemployed, alcoholism, drug addiction, transportation, low edu. Level, literacy, decrease access to med. care, skilled nursing, rehab)? @ -No Was there de-escalation of care discussed even if they declined (Discuss DNR or withdrawal of care, Hospice)? DNR status @ -No What co-morbidities impacted this encounter? (DM, HTN, Smoking, COPD, CAD, Cancer, CVA, ARF, Chemo, Hep., AIDS, mental health diagnosis, sleep apnea, morbid obesity)? @ -Psychiatric history Was patient admitted / discharged? Hospital course, mention meds given and route, prescriptions, significant lab abnormalities, going to OR and other pertinent info. @ -Patient presents emergency department for worsening suicidal ideation with plan to overdose. Does have prior attempt of overdose but no current attempt. We will obtain basic labs due to her age including EKG. Sitter and suicide precautions ordered for the patient. She will be given a small dose of Ativan for agitation. Patient was in agreement this plan. Vitals are within acceptable limits. EKG showed no signs of acute ischemia. BAT is 0.Patient's laboratory studies within acceptable limits. UDS positive for marijuana. Urinalysis is c ontaminated. Negative COVID. EKG showed no signs of acute ischemia. At this time, patient was medically cleared for evaluation by psychiatry. Disposition pending psychiatric evaluation. EPS notified of the consult. EPS evaluated the patient and determined that she does meet inpatient psychiatr ic arteria. Clinical certificate completed by myself. Undiagnosed new problem with uncertain prognosis? @ -No Drug Therapy requiring intensive monitoring for toxicity (Heparin, Nitro, Insulin, Cardizem)? @ -No Were any procedures done? @ -No Diagnosis/symptom? @ -Suicidal ideation Acute, or Chronic, or Acute on Chronic? @ -Acute Uncomplicated (without systemic symptoms) or Complicated (systemic symptoms)? @ -Complicated Side effects of treatment? @ -None Exacerbation, Progression, or Severe Exacerbation] @ -No Poses a threat to life or bodily function? @ -Potentially, yes - Lab Data Result diagrams: 06/15/24 13:38 06/15/24 13:38 Lab Results 06/15/24 06/15/24 06/15/24 Range/Units 12:53 13:11 13:38 WBC 8.1 (3.8-10.6) k/uL RBC 4.80 (3.80-5.40) m/uL Hgb 14.5 (11.4-16.0) gm/dL Hct 45.2 (34.0-46.0) % MCV 94.2 (80.0-100.0) fL MCH 30.3 (25.0-35.0) pg MCHC 32.1 (31.0-37.0) g/dL RDW 13.4 (11.5-15.5) % Plt Count 292 (150-450) k/uL MPV 8.0 Neutrophils % 70 % Lymphocytes % 21 % Monocytes % 6 % Eosinophils % 0 % Basophils % 1 % Neutrophils # 5.7 (1.3-7.7) k/uL Lymphocytes # 1.7 (1.0-4.8) k/uL Monocytes # 0.5 (0-1.0) k/uL Eosinophils # 0.0 (0-0.7) k/uL Basophils # 0.0 (0-0.2) k/uL Sodium (137-145) mmol/L Potassium (3.5-5.1) mmol/L Chloride (98-107) mmol/L Carbon Dioxide (22-30) mmol/L Anion Gap mmol/L BUN (7-17) mg/dL Creatinine (0.52-1.04) mg/dL Est GFR (CKD-EPI)AfAm (>60 ml/min/1.73 sqM) Est GFR (CKD-EPI)NonAf (>60 ml/min/1.73 sqM) Glucose (74-99) mg/dL Calcium (8.4-10.2) mg/dL Urine Color Colorless Urine Appearance Cloudy H (Clear) Urine pH 6.5 (5.0-8.0) Ur Specific [place] 1.004 (1.001-1.035) Urine Protein Negative (Negative) Urine Glucose (UA) Negative (Negative) Urine Ketones Negative (Negative) Urine Blood Negative (Negative) Urine Nitrite Negative (Negative) Urine Bilirubin Negative (Negative) Urine Urobilinogen <2.0 (<2.0) mg/dL Ur Leukocyte Esterase Moderate H (Negative) Urine RBC 3 (0-5) /hpf Urine WBC 9 H (0-5) /hpf Ur Squamous Epith Cells 6 H (0-4) /hpf Urine Bacteria Rare H (None) /hpf Urine Mucus Rare H (None) /hpf Urine Opiates Screen Not Detected (NotDetected) Ur Oxycodone Screen Not Detected (NotDetected) Urine Methadone Screen Not Detected (NotDetected) Ur Barbiturates Screen Not Detected (NotDetected) U Tricyclic Antidepress Not Detected (NotDetected) Ur Phencyclidine Scrn Not Detected (NotDetected) Ur Amphetamines Screen Not Detected (NotDetected) U Methamphetamines Scrn Not Detected (NotDetected) U Benzodiazepines Scrn Not Detected (NotDetected) Urine Cocaine Screen Not Detected (NotDetected) U Marijuana (THC) Screen Detected H (NotDetected) SARS-CoV-2 (PCR) Not Detected (Not Detectd) 06/15/24 Range/Units 13:38 WBC (3.8-10.6) k/uL RBC (3.80-5.40) m/uL Hgb (11.4-16.0) gm/dL Hct (34.0-46.0) % MCV (80.0-100.0) fL MCH (25.0-35.0) pg MCHC (31.0-37.0) g/dL RDW (11.5-15.5) % Plt Count (150-450) k/uL MPV Neutrophils % % Lymphocytes % % Monocytes % % Eosinophils % % Basophils % % Neutrophils # (1.3-7.7) k/uL Lymphocytes # (1.0-4.8) k/uL Monocytes # (0-1.0) k/uL Eosinophils # (0-0.7) k/uL Basophils # (0-0.2) k/uL Sodium 138 (137-145) mmol/L Potassium 3.9 (3.5-5.1) mmol/L Chloride 110 H (98-107) mmol/L Carbon Dioxide 24 (22-30) mmol/L Anion Gap 4 mmol/L BUN 11 (7-17) mg/dL Creatinine 0.95 (0.52-1.04) mg/dL Est GFR (CKD-EPI)AfAm 74 (>60 ml/min/1.73 sqM) Est GFR (CKD-EPI)NonAf 64 (>60 ml/min/1.73 sqM) Glucose 109 H (74-99) mg/dL Calcium 10.8 H (8.4-10.2) mg/dL Urine Color Urine Appearance (Clear) Urine pH (5.0-8.0) Ur Specific [place] (1.001-1.035) Urine Protein (Negative) Urine Glucose (UA) (Negative) Urine Ketones (Negative) Urine Blood (Negative) Urine Nitrite (Negative) Urine Bilirubin (Negative) Urine Urobilinogen (<2.0) mg/dL Ur Leukocyte Esterase (Negative) Urine RBC (0-5) /hpf Urine WBC (0-5) /hpf Ur Squamous Epith Cells (0-4) /hpf Urine Bacteria (None) /hpf Urine Mucus (None) /hpf Urine Opiates Screen (NotDetected) Ur Oxycodone Screen (NotDetected) Urine Methadone Screen (NotDetected) Ur Barbiturates Screen (NotDetected) U Tricyclic Antidepress (NotDetected) Ur Phencyclidine Scrn (NotDetected) Ur Amphetamines Screen (NotDetected) U Methamphetamines Scrn (NotDetected) U Benzodiazepines Scrn (NotDetected) Urine Cocaine Screen (NotDetected) U Marijuana (THC) Screen (NotDetected) SARS-CoV-2 (PCR) (Not Detectd) - EKG Data -: EKG Interpreted by Me EKG Comments: 12-lead Electrocardiogram Interpretation Note EKG was reviewed and interpreted by myself. 12-lead ECG performed at 1318 is interpreted by me as revealing normal sinus rhythm at a rate of 66 beats per minute. [place] is normal. [place] interval is 159 ms, QRS duration is 85 ms, QTc is 414 ms.. There were no ST or T wave abnormalities to suggest myocardial ischemia or injury. R wave progression across the precordium was satisfactory. By my interpretation this EKG is non-diagnostic for acute ischemia. Disposition Clinical Impression: Suicidal ideations Disposition: TRANSFER TO PSYCH HOSP/UNIT Condition: Stable Referrals: Rhonda Ceja DO [Primary Care Provider] - 1-2 days
[2024-06-15 13:35] LABS: Amphetamine Screen,Urine Not Detected (NotDetected); Barbiturate Screen,Urine Not Detected (NotDetected); Benzodiazepines Screen,Urine Not Detected (NotDetected); Cocaine Screen,Urine Not Detected (NotDetected); Methadone Screen, Urine Not Detected (NotDetected); Opiate Screen,Urine Not Detected (NotDetected); Oxycodone Screen, Urine Not Detected (NotDetected); Phencyclidine Screen,Urine Not Detected (NotDetected); Tricyclic Antidepressant,Urine Not Detected (NotDetected); Urn Cannabinoid Scrn Detected (NotDetected)
[2024-06-15] MEDS: LORazepam 2 MG/ML INJ IV STA (13:38)
[2024-06-15 13:46] LABS: Basophils % (A) 1 %; Eosinophils % (A) 0 %; HCT 45.2 % (34.0-46.0); HGB 14.5 gm/dL (11.4-16.0); Lymphocytes # (A) 1.7 k/uL (1.0-4.8); Lymphocytes % (A) 21 %; MCH 30.3 pg (25.0-35.0); MCHC 32.1 g/dL (31.0-37.0); MCV 94.2 fL (80.0-100.0); Monocytes # (A) 0.5 k/uL (0-1.0); Monocytes % (A) 6 %; Neutrophils # (A) 5.7 k/uL (1.3-7.7); Neutrophils % (A) 70 %; Platelet Count 292 k/uL (150-450); RDW 13.4 % (11.5-15.5); WBC 8.1 k/uL (3.8-10.6)
[2024-06-15 13:58] LABS: African American GFR (CKD) 74 (>60 ml/min/1.73 sqM); Anion Gap 4 mmol/L; Blood Urea Nitrogen 11 mg/dL (7-17); Calcium 10.8 mg/dL (8.4-10.2); Carbon Dioxide 24 mmol/L (22-30); Chloride 110 mmol/L (98-107); Glucose 109 mg/dL (74-99); Non-African American GFR(CKD) 64 (>60 ml/min/1.73 sqM); Potassium 3.9 mmol/L (3.5-5.1); Sodium 138 mmol/L (137-145)
[2024-06-15] MEDS: ZIPRASIDONE 20 MG VIAL IM STA (16:01)
[2024-06-15 22:54] VITALS: RESP 16
[2024-06-16] MEDS: ZIPRASIDONE 20 MG VIAL IM STA (05:59)
[2024-06-16 08:02] VITALS: PULSE 80; TEMP 98.4
[2024-06-16] MEDS: LORazepam 2 MG/ML INJ IV STA (09:43)
[2024-06-16 11:31] VITALS: BP 98/62
== END 2024-06-16 15:12 ==
LOC: EC 12:36
CPT/HCPCS: 36415; 80048; 80306; 81001; 82075; 84443; 85025; 87635; 93005; 96372; 96374; 96376; 99285

== ENCOUNTER 2024-08-16 15:27 | Emergency (ER) | payer MEDICARE, OTHER ==
[2024-08-16 16:04] LABS: Basophils % (A) 0 %; Eosinophils # (A) 0.1 k/uL (0-0.7); Eosinophils % (A) 1 %; HCT 43.9 % (34.0-46.0); HGB 14.5 gm/dL (11.4-16.0); Lymphocytes # (A) 1.3 k/uL (1.0-4.8); Lymphocytes % (A) 16 %; MCH 30.8 pg (25.0-35.0); MCHC 33.1 g/dL (31.0-37.0); MCV 93.2 fL (80.0-100.0); Mean Platelet Volume 7.9; Monocytes # (A) 0.6 k/uL (0-1.0); Monocytes % (A) 7 %; Neutrophils # (A) 6.2 k/uL (1.3-7.7); Neutrophils % (A) 75 %; Platelet Count 277 k/uL (150-450); RBC 4.71 m/uL (3.80-5.40); RDW 12.8 % (11.5-15.5); WBC 8.3 k/uL (3.8-10.6)
[2024-08-16 16:15] LABS: ALT 22 U/L (4-34); AST 27 U/L (14-36); Acetaminophen <10.0 ug/mL; African American GFR (CKD) 79 (>60 ml/min/1.73 sqM); Albumin 4.3 g/dL (3.5-5.0); Alcohol <10 mg/dL; Alkaline Phosphatase 60 U/L (38-126); Anion Gap 4 mmol/L; Blood Urea Nitrogen 13 mg/dL (7-17); Calcium 9.9 mg/dL (8.4-10.2); Carbon Dioxide 25 mmol/L (22-30); Chloride 110 mmol/L (98-107); Glucose 127 mg/dL (74-99); Non-African American GFR(CKD) 69 (>60 ml/min/1.73 sqM); Potassium 4.1 mmol/L (3.5-5.1); Salicylate <1.0 mg/dL; Sodium 139 mmol/L (137-145); Total Bilirubin 0.4 mg/dL (0.2-1.3)
--- NOTE | 2024-08-16 16:30 | ED ---
General Adult HPI - General Chief complaint: Overdose Stated complaint: Petition/sucide attempt/mental health Time Seen by Provider: 08/16/24 15:45 Source: patient, EMS, RN notes reviewed Mode of arrival: EMS Limitations: no limitations - History of Present Illness Initial comments: Patient is a 64-year-old female present to the emergency department with overdose. Patient took a full bottle of her benztropine as well as hydroxyzine. Patient admits to trying to harm herself. Patient feels depressed and has suicidal thoughts. Patient states she feels a little bit lightheaded right now. Patient also admits to feeling dry. - Related Data Home Medications Medication Instructions Recorded Confirmed Escitalopram Oxalate [Lexapro] 30 mg PO DAILY 07/03/23 08/16/24 Omeprazole [PriLOSEC] 20 mg PO DAILY 11/05/23 08/16/24 Benztropine Mesylate [Cogentin] 1 mg PO BID 12/10/23 08/16/24 Eucerin Cream 1 applic TOPICAL TID PRN 06/15/24 08/16/24 Melatonin 3 mg PO HS PRN 06/15/24 08/16/24 busPIRone HCL 15 mg PO TID 06/15/24 08/16/24 fluPHENAZine decanoate [Prolixin 12.5 mg IM Q28D 06/15/24 08/16/24 Decanoate] metFORMIN HCL ER [Glucophage XR] 500 mg PO DAILY@1700 06/15/24 08/16/24 Mirtazapine [Remeron] 30 mg PO HS 08/16/24 08/16/24 Sennosides [Senokot] 8.6 mg PO DAILY PRN 08/16/24 08/16/24 hydrOXYzine pamoate [Vistaril] 50 mg PO TID PRN 08/16/24 08/16/24 Allergies Allergy/AdvReac Type Severity Reaction Status Date / Time adhesive tape Allergy Rash/Hives Verified 08/16/24 19:28 chlorpromazine Allergy Anaphylaxis Verified 08/16/24 19:28 [From Thorazine] codeine Allergy Rash/Hives Verified 08/16/24 19:28 haloperidol [From Haldol] Allergy Rash/tardive Verified 08/16/24 19:28 dyskinesia latex Allergy "rash" Verified 08/16/24 19:28 nicotine [From [employer] ] Allergy Rash/Hives Verified 08/16/24 19:28 Review of Systems ROS Statement: Those systems with pertinent positive or pertinent negative responses have been documented in the HPI. ROS Other: All systems not noted in ROS Statement are negative. Constitutional: Denies: fever Eyes: Denies: eye pain Neurological: Denies: headache Psychiatric: Reports: depression, suicidal thoughts Past Medical History Past Medical History: No Reported History Additional Past Medical History / Comment(s): Multiple personaility, daily marijuana use, major depressive disorder History of Any Multi-Drug Resistant Organisms: None Reported Past Surgical History: Section, Cholecystectomy, Hysterectomy, Orthopedic Surgery, Tubal Ligation Additional Past Surgical History / Comment(s): PILONIADAL CYSTECTOMY. RT ROTATOR CUFF REPAIR Past Anesthesia/Blood Transfusion Reactions: Motion Sickness Past Psychological History: Depression Smoking Status: Former smoker Past Alcohol Use History: None Reported Past Drug Use History: Marijuana - Past Family History Mother History Unknown: Yes Family Medical History: No Reported History Additional Family Medical History / Comment(s): Ca, unknown kind Father History Unknown: Yes Additional Family Medical History / Comment(s): Ca, unknown kind General Exam Limitations: no limitations General appearance: alert, in no apparent distress Head exam: Present: atraumatic, normocephalic Eye exam: Present: normal appearance, PERRL, EOMI ENT exam: Present: mucous membranes dry Neck exam: Present: normal inspection Respiratory exam: Present: normal lung sounds bilaterally Cardiovascular Exam: Present: tachycardia GI/Abdominal exam: Present: soft. Absent: tenderness Extremities exam: Present: normal inspection Neurological exam: Present: alert, CN II-XII intact. Absent: motor sensory deficit Psychiatric exam: Present: flat affect Skin exam: Present: normal color Course Vital Signs 08/16/24 08/16/24 08/16/24 15:38 16:53 17:32 Temperature 98.9 F Pulse Rate 100 109 H 109 H Respiratory 18 18 18 Rate Blood Pressure 104/69 120/86 136/82 O2 Sat by Pulse 95 96 96 Oximetry 08/16/24 18:16 Temperature 98.3 F Pulse Rate 108 H Respiratory 18 Rate Blood Pressure 150/85 O2 Sat by Pulse 100 Oximetry EKG Findings - EKG Results: EKG: interpreted by ERMD, sinus rhythm, normal axis, normal QRS, normal ST/T EKG shows: tachycardia Medical Decision Making - Medical Decision Making Patient cleared for mental health evaluation. Patient states ingestion was sometime around noon. Postvoid bladder scan 18 mL Was pt. sent in by a medical professional or institution (, [facility], [employer]EL[employer], urgent care, hospital, or alf...) When possible be specific @ -No Did you speak to anyone other than the patient for history (EMS, parent, family, police, friend...)? What history was obtained from this source @ -No Did you review nursing and triage notes (agree or disagree)? Why? @ -I reviewed and agree with nursing and triage notes Were old charts reviewed (outside hosp., previous admission, EMS record, old EKG, old radiological studies, urgent care reports/EKG's, alf records)? Report findings @ -No old charts were reviewed Differential Diagnosis (chest pain, altered mental status, abdominal pain women, abdominal pain men, vaginal bleeding, weakness, fever, dyspnea, syncope, headache, dizziness, GI bleed, back pain, seizure, CVA, palpatations, mental health, musculoskeletal)? @ -Differential Mental Health Depression, anxiety, bipolar, psychosis, schizophrenia, borderline personality, situational depression, adjustment disorder, behavioral disorder, brain tumor, malingering, substance abuse, encephalopathy, medication reaction, dementia, hypothyroidism, degenerative neurologic disorder, lupus.... This is not meant to be all-inclusive list EKG interpreted by me (3pts min.). @ -As above X-rays interpreted by me (1pt min.). @ -None done CT interpreted by me (1pt min.). @ -None done U/S interpreted by me (1pt. min.). @ -None done What testing was considered but not performed or refused? (CT, X-rays, U/S, labs)? Why? @ -None What meds were considered but not given or refused? Why? @ -None Did you discuss the management of the patient with other professionals (professionals i.e. [facility] Sheehan, MARKLOGIC DEVELOPER, lab, RT, psych nurse, social media designer, drive tester, teacher, booking police officer, assistant case manager)? Give summary @ -Poison control was contacted who recommended 6 hours observation and watch for urine retention Was smoking cessation discussed for >3mins.? @ -No Was critical care preformed (if so, how long)? @ -31 minutes critical care provided Were there social determinants of health that impacted care today? How? (Homelessness, low income, unemployed, alcoholism, drug addiction, transportation, low edu. Level, literacy, decrease access to med. care, group home, rehab)? @ -No Was there de-escalation of care discussed even if they declined (Discuss DNR or withdrawal of care, Hospice)? DNR status @ -No What co-morbidities impacted this encounter? (DM, HTN, Smoking, COPD, CAD, Cancer, CVA, ARF, Chemo, Hep., AIDS, mental health diagnosis, sleep apnea, morbid obesity)? @ -History of depression Was patient admitted / discharged? Hospital course, mention meds given and route, prescriptions, significant lab abnormalities, going to OR and other pe rtinent info. @ -Patient presents with depression and suicidal thoughts with gesture. Patient has mild lightheadedness and was provided fluids. Bladder scan obtained. Patient will be transferred for psychiatric care. Positive clinical certificate completed Undiagnosed new problem with uncertain prognosis? @ -No Drug Therapy requiring intensive monitoring for toxicity (Heparin, Nitro, Insulin, Cardizem)? @ -No Were any procedures done? @ -No Diagnosis/symptom? @ -Depression, suicidal gesture Acute, or Chronic, or Acute on Chronic? @ -Acute, acute Uncomplicated (without systemic symptoms) or Complicated (systemic symptoms)? @ -Default Side effects of treatment? @ -No Exacerbation, Progression, or Severe Exacerbation? @ -No Poses a threat to life or bodily function? How? (Chest pain, [place], [place], pneumonia, PE, COPD, DKA, ARF, appy, cholecystitis, CVA, Diverticulitis, Homicidal, Jones icidal, threat to staff... and all critical care pts) @ -Threat to life by suicide - Lab Data Result diagrams: 08/16/24 15:58 08/16/24 15:58 Lab Results 08/16/24 08/16/24 08/16/24 Range/Units 15:58 15:58 15:58 WBC 8.3 (3.8-10.6) k/uL RBC 4.71 (3.80-5.40) m/uL Hgb 14.5 (11.4-16.0) gm/dL Hct 43.9 (34.0-46.0) % MCV 93.2 (80.0-100.0) fL MCH 30.8 (25.0-35.0) pg MCHC 33.1 (31.0-37.0) g/dL RDW 12.8 (11.5-15.5) % Plt Count 277 (150-450) k/uL MPV 7.9 Neutrophils % 75 % Lymphocytes % 16 % Monocytes % 7 % Eosinophils % 1 % Basophils % 0 % Neutrophils # 6.2 (1.3-7.7) k/uL Lymphocytes # 1.3 (1.0-4.8) k/uL Monocytes # 0.6 (0-1.0) k/uL Eosinophils # 0.1 (0-0.7) k/uL Basophils # 0.0 (0-0.2) k/uL Sodium 139 (137-145) mmol/L Potassium 4.1 (3.5-5.1) mmol/L Chloride 110 H (98-107) mmol/L Carbon Dioxide 25 (22-30) mmol/L Anion Gap 4 mmol/L BUN 13 (7-17) mg/dL Creatinine 0.89 (0.52-1.04) mg/dL Est GFR (CKD-EPI)AfAm 79 (>60 ml/min/1.73 sqM) Est GFR (CKD-EPI)NonAf 69 (>60 ml/min/1.73 sqM) Glucose 127 H (74-99) mg/dL Calcium 9.9 (8.4-10.2) mg/dL Magnesium 2.0 (1.6-2.3) mg/dL Total Bilirubin 0.4 (0.2-1.3) mg/dL AST 27 (14-36) U/L ALT 22 (4-34) U/L Alkaline Phosphatase 60 (38-126) U/L Total Protein 7.0 (6.3-8.2) g/dL Albumin 4.3 (3.5-5.0) g/dL Salicylates <1.0 mg/dL Urine Opiates Screen (NotDetected) Ur Oxycodone Screen (NotDetected) Urine Methadone Screen (NotDetected) Acetaminophen <10.0 ug/mL Ur Barbiturates Screen (NotDetected) U Tricyclic Antidepress (NotDetected) Ur Phencyclidine Scrn (NotDetected) Ur Amphetamines Screen (NotDetected) U Methamphetamines Scrn (NotDetected) U Benzodiazepines Scrn (NotDetected) Urine Cocaine Screen (NotDetected) U Marijuana (THC) Screen (NotDetected) Serum Alcohol <10 mg/dL 08/16/24 Range/Units 16:55 WBC (3.8-10.6) k/uL RBC (3.80-5.40) m/uL Hgb (11.4-16.0) gm/dL Hct (34.0-46.0) % MCV (80.0-100.0) fL MCH (25.0-35.0) pg MCHC (31.0-37.0) g/dL RDW (11.5-15.5) % Plt Count (150-450) k/uL MPV Neutrophils % % Lymphocytes % % Monocytes % % Eosinophils % % Basophils % % Neutrophils # (1.3-7.7) k/uL Lymphocytes # (1.0-4.8) k/uL Monocytes # (0-1.0) k/uL Eosinophils # (0-0.7) k/uL Basophils # (0-0.2) k/uL Sodium (137-145) mmol/L Potassium (3.5-5.1) mmol/L Chloride (98-107) mmol/L Carbon Dioxide (22-30) mmol/L Anion Gap mmol/L BUN (7-17) mg/dL Creatinine (0.52-1.04) mg/dL Est GFR (CKD-EPI)AfAm (>60 ml/min/1.73 sqM) Est GFR (CKD-EPI)NonAf (>60 ml/min/1.73 sqM) Glucose (74-99) mg/dL Calcium (8.4-10.2) mg/dL Magnesium (1.6-2.3) mg/dL Total Bilirubin (0.2-1.3) mg/dL AST (14-36) U/L ALT (4-34) U/L Alkaline Phosphatase (38-126) U/L Total Protein (6.3-8.2) g/dL Albumin (3.5-5.0) g/dL Salicylates mg/dL Urine Opiates Screen Not Detected (NotDetected) Ur Oxycodone Screen Not Detected (NotDetected) Urine Methadone Screen Not Detected (NotDetected) Acetaminophen ug/mL Ur Barbiturates Screen Not Detected (NotDetected) U Tricyclic Antidepress Not Detected (NotDetected) Ur Phencyclidine Scrn Not Detected (NotDetected) Ur Amphetamines Screen Not Detected (NotDetected) U Methamphetamines Scrn Not Detected (NotDetected) U Benzodiazepines Scrn Not Detected (NotDetected) Urine Cocaine Screen Not Detected (NotDetected) U Marijuana (THC) Screen Detected H (NotDetected) Serum Alcohol mg/dL Disposition Clinical Impression: Drug overdose, Depression Disposition: TRANSFER TO PSYCH HOSP/UNIT Is patient prescribed a controlled substance at d/c from ED?: No Referrals: Rhonda Ceja DO [Primary Care Provider] - 1-2 days Time of Disposition: 20:22
[2024-08-16] MEDS: SODIUM CHLORIDE 0.9% 1,000 ML IV STA ×2 (16:43)
[2024-08-16 17:31] LABS: Amphetamine Screen,Urine Not Detected (NotDetected); Barbiturate Screen,Urine Not Detected (NotDetected); Benzodiazepines Screen,Urine Not Detected (NotDetected); Cocaine Screen,Urine Not Detected (NotDetected); Methadone Screen, Urine Not Detected (NotDetected); Opiate Screen,Urine Not Detected (NotDetected); Oxycodone Screen, Urine Not Detected (NotDetected); Phencyclidine Screen,Urine Not Detected (NotDetected); Tricyclic Antidepressant,Urine Not Detected (NotDetected); Urn Cannabinoid Scrn Detected (NotDetected)
[2024-08-16 20:24] LABS: Appearance,Urine Clear (Clear); Bilirubin,Urine Negative (Negative); Blood,Urine Negative (Negative); Color,Urine Colorless; Glucose,Urine (UA) Negative (Negative); Ketones,Urine Negative (Negative); Leukocyte Esterase,Urine Negative (Negative); Nitrite,Urine Negative (Negative); PH, Urine 6.5 (5.0-8.0); Protein,Urine Negative (Negative); Specific Gravity,Urine 1.006 (1.001-1.035); Urobilinogen,Urine <2.0 mg/dL (<2.0)
[2024-08-16] MEDS: LORazepam 2 MG/ML INJ IV STA (22:25)
--- NOTE | 2024-08-17 00:09 | CT ---
EXAM: CT Head Without Intravenous Contrast CLINICAL HISTORY: ITS.REASON CT Reason: fall, head injury TECHNIQUE: Axial computed tomography images of the head/brain without intravenous contrast. CTDI is 45.2 mGy and DLP is 1072 mGy-cm. This CT exam was performed using one or more of the following dose reduction techniques: automated exposure control, adjustment of the mA and/or kV according to patient size, and/or use of iterative reconstruction technique. COMPARISON: No relevant prior studies available. FINDINGS: Brain: Age-related cerebral volume loss. Periventricular and subcortical white matter hypoattenuation, consistent with chronic microangiopathy. No acute intracranial hemorrhage. No midline shift or mass effect. Ventricles: Unremarkable. No ventriculomegaly. Bones/joints: Unremarkable. No acute fracture. Soft tissues: Unremarkable. Sinuses: Unremarkable as visualized. No acute sinusitis. Mastoid air cells: Unremarkable as visualized. No mastoid effusion. IMPRESSION: No acute intracranial hemorrhage. No midline shift or mass effect. EXAM: CT Cervical Spine Without Intravenous Contrast CLINICAL HISTORY: ITS.REASON CT Reason: fall, head injury TECHNIQUE: Axial computed tomography images of the cervical spine without intravenous contrast. CTDI is 14.1 mGy and DLP is 395.2 mGy-cm. This CT exam was performed using one or more of the following dose reduction techniques: automated exposure control, adjustment of the mA and/or kV according to patient size, and/or use of iterative reconstruction technique. COMPARISON: No relevant prior studies available. FINDINGS: The vertebral body heights are maintained. The craniocervical junction is intact. The atlanto-dens interval is maintained. The dens is intact. There is no spondylolisthesis. Multilevel cervical spondylosis and degenerative disc disease. Straightening of the cervical lordosis. The unenhanced neck soft tissues are grossly unremarkable. The visualized lung apices are grossly clear. IMPRESSION: No acute fracture or subluxation of the cervical spine.
[2024-08-18 05:24] VITALS: RESP 18; TEMP 98.9
[2024-08-18 15:22] VITALS: BP 99/73; PULSE 104
== END 2024-08-18 15:21 ==
LOC: EC 15:27
DX: T44.3X1A Poisoning by other parasympatholytics [anticholinergics and antimuscarinics] and spasmolytics, accidental (unintentional), initial encounter (principal); F32.A Depression, unspecified; Z91.09 Other allergy status, other than to drugs and biological substances; Z88.5 Allergy status to narcotic agent; Z91.040 Latex allergy status; Z88.8 Allergy status to other drugs, medicaments and biological substances; Z87.891 Personal history of nicotine dependence
CPT/HCPCS: 82075; 51798; 36415; 93005; 80053; 83735; 85025; 81003; 80306; 80143; 87635; 80179; 72125; 70450; 99291; 96374; 96361; G0480; J2060; 80320

== ENCOUNTER 2024-09-30 11:35 | Emergency (ER) | payer MEDICARE, OTHER ==
--- NOTE | 2024-09-30 12:22 | ED ---
Psych HPI - General Source: patient, police, RN notes reviewed Mode of arrival: ambulatory <Juan Scruggs - Last Filed: 09/30/24 12:20> <Rory Hui - Last Filed: 09/30/24 16:19> - General Chief Complaint: Psychiatric Symptoms Stated Complaint: Petition Time Seen by Provider: 09/30/24 11:50 - History of Present Illness Initial Comments: Quick note: This is a 64-year-old female presenting with PD for core position mental evaluation. Patient states patient made a call to mobile [employer], stating she wants the voices to stop.. Patient states she was at mental health appointments this morning and was scheduled for another appointment at 1300 today and is upset that she will not be able to attend due to being brought to the ER. Patient states she has made no recent calls to mobile crisis hotline. PD states condition is stated from June 2024. [facility], stating the voices were telling her to harm herself at the time. Patient states she was hearing voices earlier today, recently. Denies SI/HI, visual hallucinations. (Juan Scruggs) This is a 64-year-old female who presents to the emergency department because the police brought her in. Patient states she had gone to [facility] today and then had a meeting with a counselor for her marriage counseling and she was post have another meeting later today but was unable to attend because she was brought in by police. Patient denies any suicidal homicidal ideations. Patient denies any delusions or hallucinations. Patient states she was having a good day up until they brought her in here. Patient denies any physical complaints today. (Rory Hui) - Related Data Home Medications Medication Instructions Recorded Confirmed Escitalopram Oxalate [Lexapro] 30 mg PO DAILY 07/03/23 09/30/24 Omeprazole [PriLOSEC] 20 mg PO DAILY 11/05/23 09/30/24 Benztropine Mesylate [Cogentin] 1 mg PO BID 12/10/23 09/30/24 Eucerin Cream 1 applic TOPICAL TID PRN 06/15/24 09/30/24 Melatonin 3 mg PO HS PRN 06/15/24 09/30/24 busPIRone HCL 15 mg PO TID 06/15/24 09/30/24 Mirtazapine [Remeron] 30 mg PO HS 08/16/24 09/30/24 Sennosides [Senokot] 8.6 mg PO DAILY PRN 08/16/24 09/30/24 Divalproex ER [Depakote ER] 500 mg PO BID 09/30/24 09/30/24 Paliperidone Palmitate [Invega 546 mg IM 09/30/24 Trinza] Allergies Allergy/AdvReac Type Severity Reaction Status Date / Time adhesive tape Allergy Rash/Hives Verified 08/16/24 19:28 chlorpromazine Allergy Anaphylaxis Verified 08/16/24 19:28 [From Thorazine] codeine Allergy Rash/Hives Verified 08/16/24 19:28 haloperidol [From Haldol] Allergy Rash/tardive Verified 08/16/24 19:28 dyskinesia latex Allergy "rash" Verified 08/16/24 19:28 nicotine [From [employer]oderm CQ] Allergy Rash/Hives Verified 08/16/24 19:28 Review of Systems ROS Other: All systems not noted in ROS Statement are negative. <Juan Scruggs - Last Filed: 09/30/24 12:20> ROS Other: All systems not noted in ROS Statement are negative. <Rory Hui - Last Filed: 09/30/24 16:19> ROS Statement: Those systems with pertinent positive or pertinent negative responses have been documented in the HPI. Past Medical History Past Medical History: Hyperlipidemia Additional Past Medical History / Comment(s): Multiple personaility, daily marijuana use, major depressive disorder History of Any Multi-Drug Resistant Organisms: None Reported Past Surgical History: Section, Cholecystectomy, Hysterectomy, Orthopedic Surgery, Tubal Ligation Additional Past Surgical History / Comment(s): PILONIADAL CYSTECTOMY. RT ROTATOR CUFF REPAIR Past Anesthesia/Blood Transfusion Reactions: Motion Sickness Past Psychological History: Depression Smoking Status: Former smoker Past Alcohol Use History: None Reported Past Drug Use History: Marijuana - Past Family History Mother History Unknown: Yes Family Medical History: No Reported History Additional Family Medical History / Comment(s): Ca, unknown kind Father History Unknown: Yes Additional Family Medical History / Comment(s): Ca, unknown kind <Juan Scruggs - Last Filed: 09/30/24 12:20> General Exam Limitations: no limitations <Juan Scruggs - Last Filed: 09/30/24 12:20> <Rory Hui - Last Filed: 09/30/24 16:19> - General Exam Comments Initial Comments: Visual Physical Exam Vital signs reviewed General: Well-appearing, nontoxic, no acute distress. Head: Normocephalic, atraumatic Eyes: PERRLA, EOMI ENT: Airway patent Chest: Nonlabored breathing Skin: No visual rash, normal skin tone Neuro: Alert and oriented 3 Musculoskeletal: No gross abnormalities (Juan Scruggs) GENERAL: Patient is well-developed and well-nourished. Patient is nontoxic and well- hydrated and is in no acute distress. ENT: Neck is soft and supple. No significant lymphadenopathy is noted. Oropharynx is clear. Moist mucous membranes. Neck has full range of motion without eliciting any pain. EYES: The sclera were anicteric and conjunctiva were pink and moist. Extraocular movements were intact and pupils were equal round and reactive to light. Eyelids were unremarkable. PULMONARY: Unlabored respirations. Good breath sounds bilaterally. No audible rales rhonchi or wheezing was noted. CARDIOVASCULAR: There is a regular rate and rhythm without any murmurs gallops or rubs. ABDOMEN: Soft and nontender with normal bowel sounds. SKIN: Skin is clear with no lesions or rashes and otherwise unremarkable. NEUROLOGIC: Patient is alert and oriented x3. Cranial nerves II through XII are grossly intact. Motor and sensory are also intact. Normal speech, volume and content. Symmetrical smile. MUSCULOSKELETAL: Normal extremities with adequate strength and full range of motion. LYMPHATICS: No significant lymphadenopathy is noted PSYCHIATRIC: Normal psychiatric evaluation. Patient denies suicidal or homicidal ideations (Rory Hui) Course Vital Signs 09/30/24 11:48 Temperature 98.3 F Pulse Rate 113 H Respiratory 18 Rate Blood Pressure 148/77 O2 Sat by Pulse 97 Oximetry Medical Decision Making <Juan Scruggs - Last Filed: 09/30/24 12:20> <Rory Hui - Last Filed: 09/30/24 16:19> - Medical Decision Making I completed the quick note portion of this chart signed ANTONIO Cox (Juan Scruggs) Was pt. sent in by a medical professional or institution ([facility] Sheehan, PROPERTY DAMAGE CLAIMS ADJUSTOR, urgent care, hospital, or alf...) When possible be specific @ -No Did you speak to anyone other than the patient for history (EMS, parent, family, police, friend...)? What history was obtained from this source @ -No Did you review nursing and triage notes (agree or disagree)? Why? @ -I reviewed and agree with nursing and triage notes Were old charts reviewed (outside hosp., previous admission, EMS record, old EKG, old radiological studies, urgent care reports/EKG's, alf records)? Report findings @ -No old charts were reviewed Differential Diagnosis? @ -Differential Mental Health Depression, anxiety, bipolar, psychosis, schizophrenia, borderline personality, situational depression, adjustment disorder, behavioral disorder, brain tumor, malingering, substance abuse, encephalopathy, medication reaction, dementia, hypothyroidism, degenerative neurologic disorder, lupus.... This is not meant to be all-inclusive list EKG interpreted by me (3pts min.). @ -As above X-rays interpreted by me (1pt min.). @ -None done CT interpreted by me (1pt min.). @ -None done U/S interpreted by me (1pt. min.). @ -None done What testing was considered but not performed or refused? (CT, X-rays, U/S, labs)? Why? @ -None What meds were considered but not given or refused? Why? @ -None Did you discuss the management of the patient with other professionals ( professionals i.e. [facility]TA[facility] Sheehan, PROPERTY DAMAGE CLAIMS ADJUSTOR, lab, RT, psych nurse, social media executive, formula weigher, teacher, custom protection officer, correctional case manager)? Give summary @ -I spoke with EPS that spoke to the psychiatrist patient will be discharged home with a safety plan Was smoking cessation discussed for >3mins.? @ -No Was critical care preformed (if so, how long)? @ -No Were there social determinants of health that impacted care today? How? (Homelessness, low income, unemployed, alcoholism, drug addiction, transportation, low edu. Level, literacy, decrease access to med. care, fpc, rehab)? @ -No Was there de-escalation of care discussed even if they declined (Discuss DNR or withdrawal of care, Hospice)? DNR status @ -No What co-morbidities impacted this encounter? (DM, HTN, Smoking, COPD, CAD, Cancer, CVA, ARF, Chemo, Hep., AIDS, mental health diagnosis, sleep apnea, morbid obesity)? @ -None Was patient admitted / discharged? Hospital course, mention meds given and route, prescriptions, significant lab abnormalities, going to OR and other pertinent info. @ -Patient was very cooperative and calm and has no complaints either mental health hernández or physically so EPS evaluated the patient and determined the patient could safely go home with a safety plan Undiagnosed new problem with uncertain prognosis? @ -No Drug Therapy requiring intensive monitoring for toxicity (Heparin, Nitro, Insulin, Cardizem)? @ -No Were any procedures done? @ -No Diagnosis/symptom? @ -Mental health evaluation Acute, or Chronic, or Acute on Chronic? @ -Acute Uncomplicated (without systemic symptoms) or Complicated (systemic symptoms)? @ -Uncomplicated Side effects of treatment? @ -No Exacerbation, Progression, or Severe Exacerbation? @ -No Poses a threat to life or bodily function? How? (Chest pain, [place], [place], pneumonia, PE, COPD, DKA, ARF, appy, cholecystitis, CVA, Diverticulitis, Homicidal, Suicidal, threat to staff... and all critical care pts) @ -No (Rory Hui) Disposition <Juan Scruggs - Last Filed: 09/30/24 12:20> Is patient prescribed a controlled substance at d/c from ED?: No Time of Disposition: 16:18 <Rory Hui - Last Filed: 09/30/24 16:19> Clinical Impression: No abnormality detected on mental health assessment Disposition: HOME SELF-CARE Condition: Good Referrals: Rhonda Ceja DO [Primary Care Provider] - 1-2 days
[2024-09-30 16:38] VITALS: BP 137/88; PULSE 73; RESP 16; TEMP 98.2
== END 2024-09-30 16:39 | disposition home or self-care (01) ==
LOC: EC 11:35
DX: Z13.30 Encounter for screening examination for mental health and behavioral disorders, unspecified (principal); Z87.891 Personal history of nicotine dependence; Z88.5 Allergy status to narcotic agent; Z91.040 Latex allergy status; Z91.09 Other allergy status, other than to drugs and biological substances; Z88.8 Allergy status to other drugs, medicaments and biological substances
CPT/HCPCS: 82075; 99284

== ENCOUNTER 2024-11-01 11:59 | Inpatient (IN) | payer OTHER, MEDICARE ==
--- NOTE | 2024-11-01 12:53 | ED ---
General Adult HPI <Rory Ch - Last Filed: 11/02/24 00:37> - General Source: patient, EMS, RN notes reviewed Mode of arrival: EMS Limitations: no limitations <Mello Blancas - Last Filed: 11/02/24 10:07> - General Chief complaint: Psychiatric Symptoms Stated complaint: Psych evaluation Time Seen by Provider: 11/01/24 12:02 - History of Present Illness Initial comments: Patient is a 64-year-old female present to the emergency department with depression and suicidal thoughts. Patient states this is chronic. Patient speaks in a low voice and is difficult to hear. Patient states to me she only has suicidal thoughts however did reveal to the nurse that she took 4 days worth of Lexapro and Cogentin as well as 2 weeks worth of hydroxyzine. Patient has no physical complaints. Patient does have auditory hallucinations and states she hears voices that tell her to harm herself. No homicidal thoughts. Patient denies alcohol use. Patient states she is not sleeping well. (Mello Blancas) - Related Data Home Medications Medication Instructions Recorded Confirmed Escitalopram Oxalate [Lexapro] 30 mg PO DAILY 07/03/23 11/01/24 Omeprazole [PriLOSEC] 20 mg PO DAILY 11/05/23 11/01/24 Benztropine Mesylate [Cogentin] 1 mg PO BID 12/10/23 11/01/24 Eucerin Cream 1 applic TOPICAL TID PRN 06/15/24 11/01/24 Melatonin 3 mg PO HS PRN 06/15/24 11/01/24 busPIRone HCL 15 mg PO TID 06/15/24 11/01/24 Sennosides [Senokot] 8.6 mg PO DAILY PRN 08/16/24 11/01/24 Divalproex ER [Depakote ER] 500 mg PO BID 09/30/24 11/01/24 Paliperidone Palmitate [Invega 1 dose IM QMONTHLY 11/01/24 11/01/24 Sustenna] Allergies Allergy/AdvReac Type Severity Reaction Status Date / Time adhesive tape Allergy Rash/Hives Verified 11/01/24 17:36 chlorpromazine Allergy Anaphylaxis Verified 11/01/24 17:36 [From Thorazine] codeine Allergy Rash/Hives Verified 11/01/24 17:36 haloperidol [From Haldol] Allergy Rash/tardive Verified 11/01/24 17:36 dyskinesia latex Allergy "rash" Verified 11/01/24 17:36 nicotine [From Nicoderm CQ] Allergy Rash/Hives Verified 11/01/24 17:36 Review of Systems ROS Other: All systems not noted in ROS Statement are negative. <Rory Ch Graham - Last Filed: 11/02/24 00:37> ROS Other: All systems not noted in ROS Statement are negative. Constitutional: Denies: fever Eyes: Denies: eye pain ENT: Denies: ear pain Respiratory: Denies: dyspnea Cardiovascular: Denies: chest pain Psychiatric: Reports: as per HPI, depression, auditory hallucinations, suicidal thoughts <Mello Blancas - Last Filed: 11/02/24 10:07> ROS Statement: Those systems with pertinent positive or pertinent negative responses have been documented in the HPI. Past Medical History Past Medical History: Hyperlipidemia Additional Past Medical History / Comment(s): Multiple personaility, daily marijuana use, major depressive disorder History of Any Multi-Drug Resistant Organisms: None Reported Past Surgical History: Section, Cholecystectomy, Hysterectomy, Orthopedic Surgery, Tubal Ligation Additional Past Surgical History / Comment(s): PILONIADAL CYSTECTOMY. RT ROTATOR CUFF REPAIR Past Anesthesia/Blood Transfusion Reactions: Motion Sickness Past Psychological History: Depression Smoking Status: Former smoker Past Alcohol Use History: None Reported Past Drug Use History: Marijuana - Past Family History Mother History Unknown: Yes Family Medical History: No Reported History Additional Family Medical History / Comment(s): Ca, unknown kind Father History Unknown: Yes Additional Family Medical History / Comment(s): Ca, unknown kind <Mello Blancas - Last Filed: 11/02/24 10:07> General Exam Limitations: no limitations General appearance: alert, in no apparent distress Head exam: Present: atraumatic Eye exam: Present: normal appearance, PERRL, EOMI ENT exam: Present: normal oropharynx Neck exam: Present: normal inspection. Absent: tenderness, meningismus Respiratory exam: Present: normal lung sounds bilaterally Cardiovascular Exam: Present: regular rate, normal rhythm GI/Abdominal exam: Present: soft. Absent: tenderness Extremities exam: Present: normal inspection. Absent: pedal edema, calf tenderness Neurological exam: Present: alert. Absent: motor sensory deficit Psychiatric exam: Present: flat affect Skin exam: Present: normal color <Mello Blancas - Last Filed: 11/02/24 10:07> Course Vital Signs 11/01/24 11/01/24 11/01/24 12:00 14:00 18:00 Temperature 98.5 F 98.1 F 98.2 F Pulse Rate 88 89 87 Respiratory 16 18 16 Rate Blood Pressure 132/73 114/80 113/69 O2 Sat by Pulse 97 98 96 Oximetry 11/02/24 11/02/24 00:00 08:40 Temperature Pulse Rate 77 96 Respiratory 17 18 Rate Blood Pressure 127/66 120/77 O2 Sat by Pulse 97 99 Oximetry EKG Findings - EKG Comments: EKG Findings:: EKG is sinus 76 NE 169 QRS 81 QTc 444 <Rory Ch - Last Filed: 11/02/24 00:37> - EKG Results: EKG: interpreted by ERMD, sinus rhythm, normal axis, normal QRS, normal ST/T <Mello Blancas - Last Filed: 11/02/24 10:07> Medical Decision Making - Lab Data Result diagrams: 11/01/24 13:40 11/01/24 13:40 <Rory Ch - Last Filed: 11/02/24 00:37> - Lab Data Result diagrams: 11/01/24 13:40 11/01/24 13:40 <Mello Blancas - Last Filed: 11/02/24 10:07> - Medical Decision Making Was pt. sent in by a medical professional or institution (, PA, [employer]SEM[employer], urgent care, hospital, or residential...) When possible be specific @ -[No] Did you speak to anyone other than the patient for history (EMS, parent, family, police, friend...)? What history was obtained from this source @ -[No] Did you review nursing and triage notes (agree or disagree)? Why? @ -[I reviewed and agree with nursing and triage notes] Were old charts reviewed (outside hosp., previous admission, EMS record, old EKG, old radiological studies, urgent care reports/EKG's, residential records)? Report findings @ -[No old charts were reviewed] Differential Diagnosis (chest pain, altered mental status, abdominal pain women, abdominal pain men, vaginal bleeding, weakness, fever, dyspnea, syncope, headache, dizziness, GI bleed, back pain, seizure, CVA, palpatations, mental health, musculoskeletal)? @ -Differential Mental Health Depression, anxiety, bipolar, psychosis, schizophrenia, borderline personality, situational depression, adjustment disorder, behavioral disorder, brain tumor, malingering, substance abuse, encephalopathy, medication reaction, dementia, hypothyroidism, degenerative neurologic disorder, lupus.... This is not meant to be all-inclusive list EKG interpreted by me (3pts min.). @ -[As above] X-rays interpreted by me (1pt min.). @ -[None done] CT interpreted by me (1pt min.). @ -[None done] U/S interpreted by me (1pt. min.). @ -[None done] What testing was considered but not performed or refused? (CT, X-rays, U/S, labs)? Why? @ -[None] What meds were considered but not given or refused? Why? @ -[None] Did you discuss the management of the patient with other professionals (professionals i.e. , PA, [employer], lab, RT, psych nurse, social work manager, milk condenser, teacher, recreation officer, family service caseworker)? Give summary @ -Poison control recommended labs and for observation. Was smoking cessation discussed for >3mins.? @ -[No] Was critical care preformed (if so, how long)? @ -[No] Were there social determinants of health that impacted care today? How? (Homelessness, low income, unemployed, alcoholism, drug addiction, transportati on, low edu. Level, literacy, decrease access to med. care, penitentiary, rehab)? @ -[No] Was there de-escalation of care discussed even if they declined (Discuss DNR or withdrawal of care, Hospice)? DNR status @ -[No] What co-morbidities impacted this encounter? (DM, HTN, Smoking, COPD, CAD, Cancer, CVA, ARF, Chemo, Hep., AIDS, mental health diagnosis, sleep apnea, morbid obesity)? @ -History of mental health problems Was patient admitted / discharged? Hospital course, mention meds given and route, prescriptions, significant lab abnormalities, going to OR and other pertinent info. @ -Patient presents following overdose. Patient cleared medically and observed. Patient will be seen by mental health services for final disposition Diagnosis: Depression, suicidal ideation, suicidal gesture Acuity: Acute on chronic, acute, acute Patient was seen by mental health services with plans for transfer to [facility]. Transfer paperwork and positive clinical certificate completed by myself. Patient was reevaluated today. Patient was updated. (Mello Blancas) - Lab Data Lab Results 11/01/24 11/01/24 11/01/24 Range/Units 13:40 13:40 13:40 WBC 8.3 (3.8-10.6) k/uL RBC 4.50 (3.80-5.40) m/uL Hgb 13.7 (11.4-16.0) gm/dL Hct 42.4 (34.0-46.0) % MCV 94.3 (80.0-100.0) fL MCH 30.5 (25.0-35.0) pg MCHC 32.3 (31.0-37.0) g/dL RDW 13.3 (11.5-15.5) % Plt Count 255 (150-450) k/uL MPV 8.1 Neutrophils % 70 % Lymphocytes % 19 % Monocytes % 8 % Eosinophils % 0 % Basophils % 0 % Neutrophils # 5.8 (1.3-7.7) k/uL Lymphocytes # 1.6 (1.0-4.8) k/uL Monocytes # 0.7 (0-1.0) k/uL Eosinophils # 0.0 (0-0.7) k/uL Basophils # 0.0 (0-0.2) k/uL Sodium (137-145) mmol/L Potassium (3.5-5.1) mmol/L Chloride (98-107) mmol/L Carbon Dioxide (22-30) mmol/L Anion Gap mmol/L BUN (7-17) mg/dL Creatinine (0.52-1.04) mg/dL Est GFR (CKD-EPI)AfAm (>60 ml/min/1.73 sqM) Est GFR (CKD-EPI)NonAf (>60 ml/min/1.73 sqM) Glucose (74-99) mg/dL Calcium (8.4-10.2) mg/dL Total Bilirubin (0.2-1.3) mg/dL AST (14-36) U/L ALT (4-34) U/L Alkaline Phosphatase (38-126) U/L Total Protein (6.3-8.2) g/dL Albumin (3.5-5.0) g/dL Urine HCG, Qual Not Detected (Not Detectd) Salicylates mg/dL Urine Opiates Screen Not Detected (NotDetected) Ur Oxycodone Screen Not Detected (NotDetected) Urine Methadone Screen Not Detected (NotDetected) Acetaminophen ug/mL Ur Barbiturates Screen Not Detected (NotDetected) U Tricyclic Antidepress Not Detected (NotDetected) Ur Phencyclidine Scrn Not Detected (NotDetected) Ur Amphetamines Screen Not Detected (NotDetected) U Methamphetamines Scrn Not Detected (NotDetected) U Benzodiazepines Scrn Not Detected (NotDetected) Urine Cocaine Screen Not Detected (NotDetected) U Marijuana (THC) Screen Detected H (NotDetected) Serum Alcohol mg/dL SARS-CoV-2 (PCR) (Not Detectd) 11/01/24 11/01/24 Range/Units 13:40 19:33 WBC (3.8-10.6) k/uL RBC (3.80-5.40) m/uL Hgb (11.4-16.0) gm/dL Hct (34.0-46.0) % MCV (80.0-100.0) fL MCH (25.0-35.0) pg MCHC (31.0-37.0) g/dL RDW (11.5-15.5) % Plt Count (150-450) k/uL MPV Neutrophils % % Lymphocytes % % Monocytes % % Eosinophils % % Basophils % % Neutrophils # (1.3-7.7) k/uL Lymphocytes # (1.0-4.8) k/uL Monocytes # (0-1.0) k/uL Eosinophils # (0-0.7) k/uL Basophils # (0-0.2) k/uL Sodium 133 L (137-145) mmol/L Potassium 4.2 (3.5-5.1) mmol/L Chloride 100 (98-107) mmol/L Carbon Dioxide 26 (22-30) mmol/L Anion Gap 7 mmol/L BUN 11 (7-17) mg/dL Creatinine 0.85 (0.52-1.04) mg/dL Est GFR (CKD-EPI)AfAm 84 (>60 ml/min/1.73 sqM) Est GFR (CKD-EPI)NonAf 73 (>60 ml/min/1.73 sqM) Glucose 87 (74-99) mg/dL Calcium 9.6 (8.4-10.2) mg/dL Total Bilirubin 0.4 (0.2-1.3) mg/dL AST 22 (14-36) U/L ALT 16 (4-34) U/L Alkaline Phosphatase 67 (38-126) U/L Total Protein 6.6 (6.3-8.2) g/dL Albumin 4.1 (3.5-5.0) g/dL Urine HCG, Qual (Not Detectd) Salicylates <1.0 mg/dL Urine Opiates Screen (NotDetected) Ur Oxycodone Screen (NotDetected) Urine Methadone Screen (NotDetected) Acetaminophen <10.0 ug/mL Ur Barbiturates Screen (NotDetected) U Tricyclic Antidepress (NotDetected) Ur Phencyclidine Scrn (NotDetected) Ur Amphetamines Screen (NotDetected) U Methamphetamines Scrn (NotDetected) U Benzodiazepines Scrn (NotDetected) Urine Cocaine Screen (NotDetected) U Marijuana (THC) Screen (NotDetected) Serum Alcohol <10 mg/dL SARS-CoV-2 (PCR) Not Detected (Not Detectd) Disposition <Rory Ch - Last Filed: 11/02/24 00:37> Is patient prescribed a controlled substance at d/c from ED?: No Time of Disposition: 15:01 <Mello Blancas - Last Filed: 11/02/24 10:07> Clinical Impression: Depression, Intentional overdose Disposition: TRANSFER TO PSYCH HOSP/UNIT Referrals: Rhonda Ceja DO [Primary Care Provider] - 1-2 days
[2024-11-01 13:53] LABS: Basophils % (A) 0 %; Eosinophils % (A) 0 %; HCT 42.4 % (34.0-46.0); HGB 13.7 gm/dL (11.4-16.0); Lymphocytes # (A) 1.6 k/uL (1.0-4.8); Lymphocytes % (A) 19 %; MCH 30.5 pg (25.0-35.0); MCHC 32.3 g/dL (31.0-37.0); MCV 94.3 fL (80.0-100.0); Mean Platelet Volume 8.1; Monocytes # (A) 0.7 k/uL (0-1.0); Monocytes % (A) 8 %; Neutrophils # (A) 5.8 k/uL (1.3-7.7); Neutrophils % (A) 70 %; Platelet Count 255 k/uL (150-450); RDW 13.3 % (11.5-15.5); WBC 8.3 k/uL (3.8-10.6)
[2024-11-01 14:03] LABS: ALT 16 U/L (4-34); AST 22 U/L (14-36); Acetaminophen <10.0 ug/mL; African American GFR (CKD) 84 (>60 ml/min/1.73 sqM); Albumin 4.1 g/dL (3.5-5.0); Alcohol <10 mg/dL; Alkaline Phosphatase 67 U/L (38-126); Anion Gap 7 mmol/L; Blood Urea Nitrogen 11 mg/dL (7-17); Calcium 9.6 mg/dL (8.4-10.2); Carbon Dioxide 26 mmol/L (22-30); Chloride 100 mmol/L (98-107); Glucose 87 mg/dL (74-99); Non-African American GFR(CKD) 73 (>60 ml/min/1.73 sqM); Potassium 4.2 mmol/L (3.5-5.1); Salicylate <1.0 mg/dL; Sodium 133 mmol/L (137-145); Total Bilirubin 0.4 mg/dL (0.2-1.3); Total Protein 6.6 g/dL (6.3-8.2)
[2024-11-01 14:27] LABS: Amphetamine Screen,Urine Not Detected (NotDetected); Barbiturate Screen,Urine Not Detected (NotDetected); Benzodiazepines Screen,Urine Not Detected (NotDetected); Cocaine Screen,Urine Not Detected (NotDetected); Methadone Screen, Urine Not Detected (NotDetected); Opiate Screen,Urine Not Detected (NotDetected); Oxycodone Screen, Urine Not Detected (NotDetected); Phencyclidine Screen,Urine Not Detected (NotDetected); Tricyclic Antidepressant,Urine Not Detected (NotDetected); Urn Cannabinoid Scrn Detected (NotDetected)
[2024-11-02] MEDS: ACETAMINOPHEN TAB 500 MG TAB PO STA (00:09)
[2024-11-02] MEDS ORDERED: MINERAL OIL-WHITE PETROLATUM 120 GM JAR TOPICAL PRN (16:39)
[2024-11-02] MEDS ORDERED: ZIPRASIDONE 20 MG VIAL IM PRN (16:41)
[2024-11-02] MEDS ORDERED: LORazepam 2 MG/ML INJ IM PRN (16:41)
[2024-11-02] MEDS ORDERED: MAG HYDROX/AL HYDROX/SIMETH 355 ML BOTTLE PO PRN (16:41)
[2024-11-02] MEDS ORDERED: IBUPROFEN 600 MG TAB PO PRN (16:41)
[2024-11-02] MEDS ORDERED: MAGNESIUM HYDROXIDE 2,400 MG/30 ML CUP PO PRN (16:41)
[2024-11-02] MEDS: DIVALPROEX ER 500 MG TAB.ER.24H PO SCH (22:27)
[2024-11-02] MEDS: busPIRone HCl 5 MG TAB PO SCH (22:27)
[2024-11-02] MEDS: BENZTROPINE MESYLATE 1 MG TAB PO SCH (22:27)
[2024-11-03] MEDS: ESCITALOPRAM 10 MG TAB PO SCH (08:08)
[2024-11-03] MEDS: PANTOPRAZOLE 40 MG TABLET PO SCH (08:08)
[2024-11-03] MEDS: buPROPion XL 150 MG TAB.ER.24H PO SCH (11:54)
[2024-11-03] MEDS: SENNOSIDES 8.6 MG TAB PO PRN (11:55)
--- NOTE | 2024-11-03 13:03 | P.HP ---
Psychiatric H&P - . H&P Date: 11/03/24 History & Physical: Allergies Allergy/AdvReac Type Severity Reaction Status Date / Time adhesive tape Allergy Rash/Hives Verified 11/01/24 17:36 chlorpromazine Allergy Anaphylaxis Verified 11/01/24 17:36 From Thorazine codeine Allergy Rash/Hives Verified 11/01/24 17:36 haloperidol from Haldol Allergy Rash/tardive Verified 11/01/24 17:36 dyskinesia latex Allergy "rash" Verified 11/01/24 17:36 nicotine from Nicoderm CQ Allergy Rash/Hives Verified 11/01/24 17:36 Vital Signs Temp 97.7 F 11/03/24 06:55 Pulse 97 11/03/24 06:55 Resp 16 11/02/24 17:30 BP 116/77 11/03/24 06:55 Pulse Ox 99 11/03/24 06:55 FiO2 Intake & Output 11/02/24 11/03/24 11/03/24 18:59 06:59 18:59 Weight 80.428 kg Laboratory Last Values WBC 8.3 k/uL (3.8-10.6) 11/01/24 13:40 RBC 4.50 m/uL (3.80-5.40) 11/01/24 13:40 Hgb 13.7 gm/dL (11.4-16.0) 11/01/24 13:40 Hct 42.4 % (34.0-46.0) 11/01/24 13:40 MCV 94.3 fL (80.0-100.0) 11/01/24 13:40 MCH 30.5 pg (25.0-35.0) 11/01/24 13:40 MCHC 32.3 g/dL (31.0-37.0) 11/01/24 13:40 RDW 13.3 % (11.5-15.5) 11/01/24 13:40 Plt Count 255 k/uL (150-450) 11/01/24 13:40 MPV 8.1 11/01/24 13:40 Neutrophils % 70 % 11/01/24 13:40 Lymphocytes % 19 % 11/01/24 13:40 Monocytes % 8 % 11/01/24 13:40 Eosinophils % 0 % 11/01/24 13:40 Basophils % 0 % 11/01/24 13:40 Neutrophils # 5.8 k/uL (1.3-7.7) 11/01/24 13:40 Lymphocytes # 1.6 k/uL (1.0-4.8) 11/01/24 13:40 Monocytes # 0.7 k/uL (0-1.0) 11/01/24 13:40 Eosinophils # 0.0 k/uL (0-0.7) 11/01/24 13:40 Basophils # 0.0 k/uL (0-0.2) 11/01/24 13:40 Sodium 133 mmol/L (137-145) L 11/01/24 13:40 Potassium 4.2 mmol/L (3.5-5.1) 11/01/24 13:40 Chloride 100 mmol/L (98-107) 11/01/24 13:40 Carbon Dioxide 26 mmol/L (22-30) 11/01/24 13:40 Anion Gap 7 mmol/L 11/01/24 13:40 BUN 11 mg/dL (7-17) 11/01/24 13:40 Creatinine 0.85 mg/dL (0.52-1.04) 11/01/24 13:40 Est GFR (CKD-EPI)AfAm 84 (>60 ml/min/1.73 sqM) 11/01/24 13:40 Est GFR (CKD-EPI)NonAf 73 (>60 ml/min/1.73 sqM) 11/01/24 13:40 Glucose 87 mg/dL (74-99) 11/01/24 13:[address] Glu mg/dL 111 mg/dL 11/03/24 07:34 Hemoglobin A1c 5.5 % (<=6.0) 11/03/24 07:34 Calcium 9.6 mg/dL (8.4-10.2) 11/01/24 13:40 Total Bilirubin 0.4 mg/dL (0.2-1.3) 11/01/24 13:40 AST 22 U/L (14-36) 11/01/24 13:40 ALT 16 U/L (4-34) 11/01/24 13:40 Alkaline Phosphatase 67 U/L (38-126) 11/01/24 13:40 Total Protein 6.6 g/dL (6.3-8.2) 11/01/24 13:40 Albumin 4.1 g/dL (3.5-5.0) 11/01/24 13:40 TSH 1.150 mIU/L (0.465-4.680) 11/03/24 07:34 Urine HCG, Qual Not Detected (Not Detectd) 11/01/24 13:40 Salicylates <1.0 mg/dL 11/01/24 13:40 Urine Opiates Screen Not Detected (NotDetected) 11/01/24 13:40 Ur Oxycodone Screen Not Detected (NotDetected) 11/01/24 13:40 Urine Methadone Screen Not Detected (NotDetected) 11/01/24 13:40 Acetaminophen <10.0 ug/mL 11/01/24 13:40 Ur Barbiturates Screen Not Detected (NotDetected) 11/01/24 13:40 Valproic Acid 36.1 ug/mL 11/02/24 20:49 U Tricyclic Antidepress Not Detected (NotDetected) 11/01/24 13:40 Ur Phencyclidine Scrn Not Detected (NotDetected) 11/01/24 13:40 Ur Amphetamines Screen Not Detected (NotDetected) 11/01/24 13:40 U Methamphetamines Scrn Not Detected (NotDetected) 11/01/24 13:40 U Benzodiazepines Scrn Not Detected (NotDetected) 11/01/24 13:40 Urine Cocaine Screen Not Detected (NotDetected) 11/01/24 13:40 U Marijuana (THC) Screen Detected (NotDetected) H 11/01/24 13:40 Serum Alcohol <10 mg/dL 11/01/24 13:40 SARS-CoV-2 (PCR) Not Detected (Not Detectd) 11/01/24 19:33 11/03/24 12:48 IDENTIFYING DATA: Patient is a 64-year-old female, , on disability CHIEF COMPLAINT: Suicide attempt via OD HPI: Patient presented to the hospital with chronic suicidal ideations, depression and OD. Per EPS, "EMS brought in due to SI and attempt via overdose of home medications. Cl is also on an KELLY until December 26, 2024. Cl presents depressed, soft spoken,hopeless,helpless,command hallucinations to harm themselves. Cl reports symptoms of depression have increased over last 40-60 days related to marital problems, loss of interest, low motivation, low energy, crying spells 2-3x's a week for last month. " My just yells at me and tells me what do to do all day." Cl reports " EMS brought me in from [facility], I was there for an appointment. They have me in a suicide prevention program." Clinician asked cl if their knew they were at the ER. Cl states " he does now, I am sure [facility] called him." This is a historical pattern and presentation by this Cl when presenting to the ED. Cl is diagnosed with Dis. Id Dis, MDD, and PTSD. Cl is a of the [employer]. Cl has been under psychiatric care through the [facility] for sometime. Out [facility] for 20 yrs with Loretta. Due to cl being a and having [employer] cl will need to be transferred to [place] hospital. Judgement/insight/impulse control: poor, no issues with ADLS, hypersomnia. reported, poor appetite, hygene fair. Medical issues: Medications: Lexapro,Fluphenazine,Buspirone,Cogentin. Hx of MH tx: Open with [facility] for 20 yrs also linked with [facility]. Hx of in pat: "50" times since intial at age 16. Last: 08/2024 [facility]. Hx of ASHISH: Cl reports using THC daily, 4 joints. Hx of in pat rehab: none. BAT 0.0. UDS: POS THC. Fam hx: none reported. Hx of trauma: PTSD Hx of legal: none current. Denies HI/DEL." Patient seen and evaluated on the unit and was agreeable with speaking to law writer in office. She states she overdosed on 2-week supply of hydroxyzine, expressing this was a suicide attempt and that she had planned this out. She expresses ongoing stressors including her being controlling. She states she has been to him since 2007 and he is not receptive to feedback regarding these behaviors. She did mention that they are in couples counseling which has been somewhat effective. She reports anhedonia, hopelessness, low energy, denying any sleep or appetite changes. She does report auditory hallucinations that appear command in nature, telling her to kill herself that is chronic and has been going on for "a while". Despite her marital issues, patient expresses a desire to return home with them, stating he has never been abusive and she feels safe living there. She reports anxiety directly related to the situation with her . Patient denies any suicidal or homicidal ideations intent or plan. At this time patient denies any visual hallucinations. Patient denies any flight of ideas racing thoughts and increased in goal directed behavior. Patient admits to using cannabis 3 times a day. No longer using tobacco. 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 PTSD screening was negative at this time. PAST PSYCHIATRIC HISTORY: Patient has a history of depression. She is currently prescribed Depakote ER 500 mg twice daily, Invega Sustenna 117 mg IM q. monthly, last received on 10/24/2024, BuSpar 15 mg 3 times daily, Lexapro 30 mg daily. She has tried Remeron, Zoloft, Abilify, Haldol, lithium, Thorazine previously. Patient reports close to 100 inpatient hospitalizations, most recent being in August 2024 at the [place]. Patient follows with [facility]. Patient reports greater than 50 suicide attempts, most recent being August 2024. PMH: as per ER note ALLERGIES: as per EMR SUBSTANCE USE HISTORY: Patient no longer smokes cigarettes however does report daily cannabis use. FAMILY PSYCHIATRIC/SUBSTANCE USE HISTORY: Patient reports her parents both abused alcohol. SOCIAL HISTORY: Patient is and has 2 children. She completed some college but is on SSD. MENTAL STATUS EXAM: General Appearance: Patient appears to be stated age is alert, directable, and attempts to cooperate. Patient appears to have fair hygiene and grooming. Behavior: Patient is seated without any agitated behavior. Speech: Patient's speech is fluent and nonpressured. Mood/Affect: Patient reports their mood is depressed, affect is congruent and constricted. Suicidality/Homicidality: Patient denies having any homicidal ideation intent or plan. Denies any suicidal ideations intent or plan Perceptions: Patient denies any visual hallucinations however she does report chronic auditory hallucinations, Zunilda nature and telling her to kill herself however she expresses no desire to act on these thoughts Though content/process: There is no evidence of any delusional thought content and thought process is linear. Memory and concentration: AOX3, grossly intact for the purposes of this session. Can spell "WORLD" backwards Judgment and insight: Poor STRENGTHS/WEAKNESSES: strength is that patient is resilient, in counseling. Weakness is that patient has poor judgment, marital issues and is impulsive INTELLECT: Average IMPRESSIONS: Suicide attempt via OD Major depressive disorder, recurrent, severe Cluster B traits Cannabis use disorder PLAN: -Patient is admitted under involuntary status to [facility] for stabilization of psychiatric symptoms and safety. Patient has not signed adult voluntary form and medication consent and is placed in patient's chart. Patient is currently on an EKLLY that expires 12/26/2024 -Medications : Decrease Lexapro to 15 mg daily for depression and start Wellbutrin XL 150 mg daily for depression, add Invega 3 mg at bedtime for psychosis with the plan to increase Invega Sustenna at the next dose. Patient last received Invega Sustenna 117 mg IM on 10/24, next dose being 11/21. Continue BuSpar 15 mg 3 times daily, Depakote ER 500 mg twice daily, melatonin 3 mg at bedtime as needed -Ativan and Geodon PRN for agitation/aggression -Patient was informed of the risks, benefits and side effects of the medication and patient verbally consented to taking the medications. Patient signed med consent form and was placed in chart. -Internal Medicine consult to perform medical evaluation and physical. -NRT -not needed as patient does not smoke -SW on board for discharge planning. Encourage patient to participate in groups to work on coping skills.
--- NOTE | 2024-11-03 13:36 | P.MDCNMH ---
History of Present Illness H&P Date: 11/03/24 History of present illness; patient 64-year-old lady with past medical history significant for depression, hyperlipidemia presented to the ER because of worsening depression and suicidal attempt. Patient stated that she has been hearing voices telling her to kill herself. Patient stated that for the last week she has been very depressed and has taken 4 days worth of her medication in attempt to kill herself. Patient denies any visual hallucinations. Patient denies any homicidal thoughts. Because of that, patient presented the ER Initial lab work done in the ER showed WBC 8.3, hemoglobin 13.7, platelet count 255, sodium 133, potassium 4.2, BUN 11, creatinine 0.85, calcium 9.6, Urine drug screen positive for marijuana Serum alcohol number less than 10 COVID-19 not detected Patient admitted to inpatient psych REVIEW OF SYSTEMS: CONSTITUTIONAL: No fever, no malaise, no fatigue. HEENT: No recent visual problems or hearing problems. Denied any sore throat. CARDIOVASCULAR: No chest pain, orthopnea, PND, no palpitations, no syncope. PULMONARY: No shortness of breath, no cough, no hemoptysis. GASTROINTESTINAL: No diarrhea, no nausea, no vomiting, no abdominal pain. NEUROLOGICAL: No headaches, no weakness, no numbness. HEMATOLOGICAL: Denies any bleeding or petechiae. GENITOURINARY: Denies any burning micturition, frequency, or urgency. MUSCULOSKELETAL/RHEUMATOLOGICAL: Denies any joint pain, swelling, or any muscle pain. ENDOCRINE: Denies any polyuria or polydipsia. The rest of the 14-point review of systems is negative. PHYSICAL EXAMINATION: GENERAL: The patient is alert and oriented x3, not in any acute distress. Well developed, well nourished. HEENT: Pupils are round and equally reacting to light. EOMI. No scleral icterus. No conjunctival pallor. Normocephalic, atraumatic. No pharyngeal erythema. No thyromegaly. CARDIOVASCULAR: S1 and S2 present. No murmurs, rubs, or gallops. PULMONARY: Chest is clear to auscultation, no wheezing or crackles. ABDOMEN: Soft, nontender, nondistended, normoactive bowel sounds. No palpable organomegaly. MUSCULOSKELETAL: No joint swelling or deformity. EXTREMITIES: No cyanosis, clubbing, or pedal edema. NEUROLOGICAL: Gross neurological examination did not reveal any focal deficits. SKIN: No rashes. Assessment and plan Major depression Hyperlipidemia Suicidal attempt Cannabis use disorder Monitor vital signs Elopement precaution Suicide precaution Continue Lipitor Continue psych meds per psychiatry team Labs and medication were reviewed.. Continue same treatment. Continue with symptomatic treatment. Resume home medication. Monitor labs and vitals. DVT and GI prophylaxis. Further recommendations as per clinical course of the patient Dictation was produced using [email or web address] dictation software. please excuse any grammatical, word or spelling errors. Past Medical History Past Medical History: Hyperlipidemia Additional Past Medical History / Comment(s): Multiple personaility, daily marijuana use, major depressive disorder History of Any Multi-Drug Resistant Organisms: None Reported Past Surgical History: Section, Cholecystectomy, Hysterectomy, Orthopedic Surgery, Tubal Ligation Additional Past Surgical History / Comment(s): PILONIADAL CYSTECTOMY. 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 Smoking Status: Former smoker Past Alcohol Use History: None Reported Additional Past Alcohol Use History / Comment(s): SMOKES 1 PPD SINCE AGE 18 Past Drug Use History: Marijuana Additional Drug Use History / Comment(s): USES MARIJUANA DAILY, 6-7 "joints" daily - Past Family History Mother History Unknown: Yes Family Medical History: No Reported History Additional Family Medical History / Comment(s): Ca, unknown kind Father History Unknown: Yes Additional Family Medical History / Comment(s): Ca, unknown kind Medications and Allergies Home Medications Medication Instructions Recorded Confirmed Type Escitalopram Oxalate [Lexapro] 30 mg PO DAILY 07/03/23 11/01/24 History Omeprazole [PriLOSEC] 20 mg PO DAILY 11/05/23 11/01/24 History Benztropine Mesylate [Cogentin] 1 mg PO BID 12/10/23 11/01/24 History Eucerin Cream 1 applic TOPICAL TID PRN 06/15/24 11/01/24 History Melatonin 3 mg PO HS PRN 06/15/24 11/01/24 History busPIRone HCL 15 mg PO TID 06/15/24 11/01/24 History Sennosides [Senokot] 8.6 mg PO DAILY PRN 08/16/24 11/01/24 History Divalproex ER [Depakote ER] 500 mg PO BID 09/30/24 11/01/24 History Paliperidone Palmitate [Invega 117 mg IM Q28D 11/01/24 11/02/24 History Sustenna] Allergies Allergy/AdvReac Type Severity Reaction Status Date / Time adhesive tape Allergy Rash/Hives Verified 11/01/24 17:36 chlorpromazine Allergy Anaphylaxis Verified 11/01/24 17:36 [From Thorazine] codeine Allergy Rash/Hives Verified 11/01/24 17:36 haloperidol [From Haldol] Allergy Rash/tardive Verified 11/01/24 17:36 dyskinesia latex Allergy "rash" Verified 11/01/24 17:36 nicotine [From Nicoderm CQ] Allergy Rash/Hives Verified 11/01/24 17:36 Physical Exam Vitals: Vital Signs Temp Pulse Pulse Resp BP BP Pulse Ox 11/03/24 06:55 97.7 F 97 116/77 99 11/02/24 17:30 97.4 F L 90 16 96 11/02/24 17:21 98 18 116/93 96 Intake and Output 11/02/24 11/03/24 11/03/24 22:59 06:59 14:59 Other: Weight 80.428 kg Cranial Nerve Examination - Cranial Nerves Cranial Nerve II- Optic: Intact (Cranial nerves II to XII intact) Cranial Nerve III- Oculomotor: Intact Cranial Nerve IV- Trochlear: Intact Cranial Nerve V- Trigeminal: Intact Cranial Nerve - Abducens: Intact Cranial Nerve VII- Facial: Intact Cranial Nerve VIII- Auditory: Intact Cranial Nerve IX- Glossopharyngeal: Intact Cranial Nerve X- Vagus: Intact Cranial Nerve XI- Accessory: Intact Cranial Nerve XII- Hypoglossal: Intact Results CBC & Chem 7: 11/01/24 13:40 11/01/24 13:40
[2024-11-03 15:34] LABS: Chol/HDL Ratio 2.02 Ratio; LDL Cholesterol,Calculated 92.4 mg/dL (0.0-131.0); VLDL Calculation 17.64 mg/dL (5.00-40.00)
[2024-11-03] MEDS: LORazepam 1 MG TAB PO PRN (18:15)
[2024-11-03] MEDS: ACETAMINOPHEN TAB 325 MG TAB PO PRN (18:15)
[2024-11-03] MEDS: PALIPERIDONE 3 MG TAB.ER.24 PO SCH (20:23)
[2024-11-03 22:45] LABS: Appearance,Urine Cloudy (Clear); Bilirubin,Urine Negative (Negative); Blood,Urine Negative (Negative); Color,Urine Colorless; Glucose,Urine (UA) Negative (Negative); Hyaline Casts,Urine 1 /lpf (0-2); Ketones,Urine Negative (Negative); Leukocyte Esterase,Urine Large (Negative); Nitrite,Urine Negative (Negative); Protein,Urine Negative (Negative); RBC,Urine 2 /hpf (0-5); Specific Gravity,Urine 1.008 (1.001-1.035); Squamous Epithelial Cell,Urine 19 /hpf (0-4); Urobilinogen,Urine <2.0 mg/dL (<2.0); WBC,Urine 26 /hpf (0-5)
[2024-11-04] MEDS: ESCITALOPRAM 10 MG TAB PO SCH (08:28)
[2024-11-04] MEDS: ATORVASTATIN 10 MG TAB PO SCH (08:28)
--- NOTE | 2024-11-04 11:29 | P.PN ---
Progress Note - Text Progress Note Date: 11/04/24 Interval History: Patient was seen in bed and was directable and agreeable to speak with script writer in the office. Patient notably was tearful stating she was upset at her friend who does not understand the repeat frequent admissions. Patient was encouraged to focus on herself and not be distracted from outside factors. She did receive as needed Ativan yesterday due to head banging after this conversation. Patient otherwise expressed no worsening in symptoms but still reports depressive symp toms. She continues to express auditory hallucinations, command in nature however she does not wish to act on these voices. She does mention previously having no voices however yesterday did express to script writer that these voices are chronic and have been ongoing for quite a while now. She reports poor sleep overnight. She states her is planning on visiting her tomorrow and that things are well with them. She states having an upcoming marriage counseling appointment next Thursday and that they have been attending this for the past 4 months. At this time patient denies any suicidal or homicidal ideations, intent or plan. Patient denies any visual hallucinations and denies any paranoia or delusions. Patient denies any side effects from the medications and has been compliant with meds. Mental Status Exam: General Appearance: Patient appears to be stated age is alert, directable, and cooperative. She wears glasses Behavior: Patient is calmly seated without any agitated behavior. She is tearful Speech: Patient's speech is fluent and nonpressured. Mood/Affect: Mood is depressed, affect is congruent and constricted. Suicidality/Homicidality: Patient denies having any suicidal or homicidal ideation intent or plan. Perceptions: Patient denies any visual hallucinations and denies any auditory hallucinations Though content/process: There is no evidence of any delusional thought content and thought process is linear. Memory and concentration: AOX3, grossly intact for the purposes of this session Judgment and insight: Poor Assessment Suicide attempt via OD Major depressive disorder, recurrent, severe Cluster B traits Cannabis use disorder Plan: -Patient continues to meet criteria for inpatient psychiatric admission for symptom stabilization and safety. Patient has not signed adult voluntary form and medication consent and was placed in patient's chart. Patient on an KELLY that expires 12/26/2024 -Medications: Increase Wellbutrin XL to 300 mg daily for depression, start Vistaril 50 mg at bedtime for insomnia, continue Lexapro 15 mg daily for depression, continue Invega 3 mg at bedtime for psychosis however can increase this over the weekend. Patient also on Invega Sustenna 117 mg IM last given on 10/24 with the next dose being on 11/21. Continue BuSpar 15 mg 3 times daily for anxiety, Depakote ER 500 mg twice daily for mood stabilization, melatonin 3 mg as needed at bedtime for insomnia. -When necessary Ativan and Haldol for agitation/aggression. -Labs: Reviewed -SW on board for discharge planning. Encouraged the patient to participate in milieu.
[2024-11-04] MEDS: buPROPion XL 150 MG TAB.ER.24H PO ONE (11:53)
[2024-11-04] MEDS: hydrOXYzine pamoate 25 MG CAP PO SCH (20:50)
[2024-11-04] MEDS: MELATONIN 3 MG TABLET PO PRN (20:51)
[2024-11-05] MEDS: buPROPion XL 300 MG TAB.ER.24H PO SCH (08:12)
--- NOTE | 2024-11-05 12:58 | P.PN ---
Progress Note - Text Progress Note Date: 11/05/24 Interval history: Patient was seen in her room today and was directable and agreeable to speak with tech writer. She claims that the voices have been getting a bit better claims that she is still having severe anxiety at this time. Claims that she is also feeling a bit depressed. She answered most questions appropriately with following commands. She claims that her appetite is still poor at this time, claims that she slept better last night, mainly isolating at this time. At this time patient denies any suicidal or homicidal ideations intent or plan. Denies any current auditory or visual hallucinations. Patient denies any side effects from the medications and has been compliant with meds. Mental status exam: General Appearance: Patient appears to be short hair, stated age is alert, directable, and attempts to be cooperative. Behavior: No agitated behavior. Patient is calm and directable times to cooperate. Speech: Patient's speech is fluent and nonpressured. Fairly concrete Mood/Affect: Mood is depressed and anxious, affect is congruent and constricted. Suicidality/Homicidality: Patient denies having any suicidal or homicidal ideation intent or plan. Perceptions: Patient denies any auditory or visual hallucinations. Though content/process: There is no evidence of any delusional thought content and thought process is linear and goal-directed. [place], Memory and concentration: AOX3, grossly intact for the purposes of this session Judgment and insight: improving mildly Assessment/Plan: Continue with current diagnosis. Patient continues to meet criteria for inpatient psychiatric admission for symptom stabilization and safety. Patient will be maintained on current psychotropic medication regimen, with the exception of increasing Lexapro to 20 mg daily for mood/anxiety. Monitor for medication compliance and for any psychotropic medication side effects. Will continue to monitor ongoing response to treatment. Encouraged participation in milieu.
[2024-11-06] MEDS: ESCITALOPRAM 20 MG TAB PO SCH (08:22)
--- NOTE | 2024-11-06 11:11 | P.PN ---
Progress Note - Text Progress Note Date: 11/06/24 Interval history: Patient was seen in her room today and was directable and agreeable to speak with com writer. Patient continues to be fairly concrete, somewhat evasive. Claims that she is still hearing voices telling her to harm herself. She was asking about potential discharge today. She continues to state that she is feeling depressed. Admits to anxiety however this is improving mildly. Claims that she slept fairly last night. Appetite is improving mildly. She continues to be mainly isolating at this time. At this time patient denies any suicidal or homicidal ideations intent or plan. Denies any current visual hallucinations. Patient denies any side effects from the medications and has been compliant with meds. Mental status exam: General Appearance: Patient appears to be short hair, stated age is alert, directable, and attempts to be cooperative. Behavior: No agitated behavior. Patient is calm and directable times to cooperate. Fairly isolative Speech: Patient's speech is fluent and nonpressured. Fairly concrete Mood/Affect: Mood is depressed , affect is congruent and constricted. Suicidality/Homicidality: Patient denies having any suicidal or homicidal ideation intent or plan. Perceptions: Patient denies any visual hallucinations. Admits to hearing voices telling her to harm herself Though content/process: There is no evidence of any delusional thought content and thought process is linear and goal-directed. [place], Memory and concentration: AOX3, grossly intact for the purposes of this session Judgment and insight poor: improving mildly Assessment/Plan: Continue with current diagnosis. Patient continues to meet criteria for inpatient psychiatric admission for symptom stabilization and safety. Patient will be maintained on current psychotropic medication regimen, with the exception of increasing Invega p.o. to 6 mg nightly. Monitor for m edication compliance and for any psychotropic medication side effects. Will continue to monitor ongoing response to treatment. Encouraged participation in milieu.
[2024-11-06] MEDS: PALIPERIDONE 6 MG TAB.ER.24 PO SCH (21:41)
[2024-11-07 08:50] VITALS: BP 113/63; PULSE 118; RESP 16; TEMP 97.9
--- NOTE | 2024-11-07 12:06 | P.PN ---
Progress Note - Text Progress Note Date: 11/07/24 Interval History: Patient was seen in bed, reading and was directable and agreeable to speak with speech writer in the office. She states her visited her over the weekend and that he seemed somewhat supportive, they are both still engaged in marital counseling. She reports moderate-low depression today, reports good sleep and appetite. Patient was notably goal oriented today and talked about her upcoming suicide prevention class that she began. She reports experiencing some intermittent chest pain however did mention stress test and echo appointments coming up for this, denying any chest pain at this moment. She reports lessening in her auditory hallucinations, still expressing negative thoughts however she emphasizes she would not act on these voices. At this time patient denies any suicidal or homicidal ideations, intent or plan. Patient denies any visual hallucinations and denies any paranoia or delusions. Patient denies any side effects from the medications and has been compliant with meds. Mental Status Exam: General Appearance: Patient appears to be stated age is alert, directable, and cooperative. She is wearing glasses Behavior: Patient is calmly seated without any agitated behavior. Speech: Patient's speech is fluent and nonpressured. Mood/Affect: Mood is improving mildly, affect is congruent and constricted. Suicidality/Homicidality: Patient denies having any suicidal or homicidal ideation intent or plan. Perceptions: Patient denies any visual hallucinations however she does report auditory hallucinations, lessening in intensity Though content/process: There is no evidence of any delusional thought content and thought process is linear and goal-directed. Memory and concentration: AOX3, grossly intact for the purposes of this session Judgment and insight: Improving mildly Assessment Suicide attempt via OD Major depressive disorder, recurrent, severe Cluster B traits Cannabis use disorder Plan: -Patient continues to meet criteria for inpatient psychiatric admission for symptom stabilization and safety. Patient has not signed adult voluntary form and medication consent and was placed in patient's chart. Patient on an KELLY that expires 12/26/2024 -Medications: Continue Wellbutrin XL 300 mg daily for depression, Lexapro 20 mg daily for depression, Invega 6 mg at bedtime for psychosis, BuSpar 15 mg 3 times daily for anxiety, Depakote ER 500 mg twice daily for mood stabilization. Patient to receive next Invega Sustenna dose of 234 mg IM on 3/10. Patient to continue oral Invega in the interim -When necessary Ativan and Haldol for agitation/aggression. -Labs: Reviewed -SW on board for discharge planning. Encouraged the patient to participate in milieu. Anticipate discharge back home with tomorrow. [facility]
--- NOTE | 2024-11-08 13:41 | P.DS ---
Providers Date of admission: 11/02/24 16:30 Expected date of discharge: 11/08/24 Attending physician: Stefanie Blancas MD Consults: 11/02/24 16:41 Consult Physician Routine Consulting Provider: Wojciech Ceja Consult Reason/Comments: H and P Do you want consulting provider notified?: Yes Primary care physician: Rhonda Ceaj - Discharge Diagnosis(es) (1) Suicide attempt Status: Acute Priority: High (2) Major depressive disorder Status: Acute Priority: High (3) Cluster B personality disorder Status: Chronic Priority: Medium (4) Cannabis use disorder Status: Acute Priority: Low Hospital Course: Admission HPI: Admission note was completed by process description writer" Patient presented to the hospital with chronic suicidal ideations, depression and OD. Per EPS, "EMS brought in due to SI and attempt via overdose of home medications. Cl is also on an KELLY until December 26, 2024. Cl presents depressed, soft spoken,hopeless,helpless,command hallucinations to harm themselves. Cl reports symptoms of depression have increased over last 40-60 days related to marital problems, loss of interest, low motivation, low energy, crying spells 2-3x's a week for last month. " My just yells at me and tells me what do to do all day." Cl reports " EMS brought me in from [facility], I was there for an appointment. They have me in a suicide prevention program." Clinician asked cl if their knew they were at the ER. Cl states " he does now, I am sure [facility] called him." This is a historical pattern and presentation by this Cl when presenting to the ED. Cl is diagnosed with Dis. Id Dis, MDD, and PTSD. Cl is a of the [place]. Cl has been under psychiatric care through the [facility] for sometime. [facility] for 20 yrs with Loretta. Due to cl being a and having [facility] cl will need to be transferred to [place] [facility]. Judgement/insight/impulse control: poor, no issues with ADLS, hypersomnia. reported, poor appetite, hygene fair. Medical issues: Medications: Lexapro,Fluphenazine,Buspirone,Cogentin. Hx of MH tx: Open with [facility] for 20 yrs also linked with [facility]. Hx of in pat: "50" times since intial at age 16. Last: 08/2024 [facility]. Hx of ASHISH: Cl reports using THC daily, 4 joints. Hx of in pat rehab: none. BAT 0.0. UDS: POS THC. Fam hx: none reported. Hx of trauma: PTSD Hx of legal: none current. Denies HI/DEL." Patient seen and evaluated on the unit and was agreeable with speaking to process description writer in office. She states she overdosed on 2-week supply of hydroxyzine, expressing this was a suicide attempt and that she had planned this out. She expresses ongoing stressors including her being controlling. She states she has been to him since 2007 and he is not receptive to feedback regarding these behaviors. She did mention that they are in couples counseling which has been somewhat effective. She reports anhedonia, hopelessness, low energy, denying any sleep or appetite changes. She does report auditory hallucinations that appear command in nature, telling her to kill herself that is chronic and has been going on for "a while". Despite her marital issues, patient expresses a desire to return home with them, stating he has never been abusive and she feels safe living there. She reports anxiety directly related to the situation with her . Patient denies any suicidal or homicidal ideations intent or plan. At this time patient denies any visual hallucinations. Patient denies any flight of ideas racing thoughts and increased in goal directed behavior. Patient admits to using cannabis 3 times a day. No longer using tobacco. 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 PTSD screening was negative at this time." Hospital course: Upon admission to the unit patient was admitted on an KELLY that expires 12/26/2024.. Patient got along well with other patients on the unit and followed unit protocol. Patient was compliant with the medications and denied any side effects throughout hospital course. Patient was started on Wellbutrin XL and this was increased to 300 mg daily for depression, Lexapro decreased to 20 mg daily for depression, Invega increased to 6 mg at bedtime for psychosis, BuSpar continued at 15 mg 3 times daily for anxiety, Depakote ER 500 mg twice daily for mood stabilization. Patient is also on Invega Sustenna however the next dose will be increased to 234 mg IM due on 11/21. Patient educated to continue oral Invega in the interim. Patient spoke of her stressors and engaged in therapy both group and individual. Patient was also seen by medical team for history and physical exam. Throughout the course of the hospitalization patient gradually improved with regards to mood, anxiety, sleep and returned back to their baseline level of functioning. On the day of discharge patient denied any suicidal or homicidal ideations intent or plan denied any auditory or visual hallucinations. The patient denied any access to guns or weapons. Patient denied any paranoia and did not endorse any delusions. Patient does not have a significant history of substance abuse and was counseled on abstaining from all substances including alcohol and marijuana. Patient was also counseled on the medications and need for regular compliance and was encouraged to follow-up with their outpatient appointment for mental health and also for primary care. Prior to discharge a family meeting will be arranged by social media specialist to answer any questions and ensure safety upon discharge including making sure that guns/weapons are either removed from the home or locked away. Patient to be discharged back home with , will follow-up with [facility]. Mental status exam: General Appearance: Patient appears to be stated age is alert, pleasant, and cooperative. Patient is in no acute distress and has fair hygiene and grooming. She wears glasses Behavior: Patient is calmly seated without any agitated behavior. She is intermittently tearful Speech: Patient's speech is fluent and nonpressured. Mood/Affect: Patient reports their mood is "good", affect is congruent and euthymic. Suicidality/Homicidality: Patient denies having any suicidal or homicidal ideation intent or plan. Perceptions: Patient denies any auditory or visual hallucinations. Though content/process: There is no evidence of any delusional thought content and thought process is linear and goal-directed. Memory and concentration: AOX3, grossly intact for the purposes of this session. Can spell "WORLD" backwards correctly. Judgment and insight: Chronically poor, however has improved with guarded prognosis Impression: Suicide attempt via OD Major depressive disorder, recurrent, severe Cluster B traits Cannabis use disorder Plan: -Continue with discharge today as patient has improved and stabilized psychiatrically and is not currently an imminent threat to themself and/or others. Patient will remain at chronically elevated risk for harm to self and/or others due to their impulsivity and substance abuse. -Continue medications: Wellbutrin XL 300 mg daily, Lexapro 20 mg daily, BuSpar 15 mg 3 times daily, Depakote ER 500 mg twice daily, Invega 6 mg at bedtime. Patient also on Invega Sustenna with the next dose of 234 mg IM to be due on 11/21. Patient to continue oral Invega in the interim. -Patient was counseled on the need for medication compliance and appropriate follow-up at mental health and also primary care for medical issues. Patient verbalized understanding and agreed. -Social work to help coordinate patients discharge today arrange for and conduct family meeting to ensure safety upon discharge and answer any questions/concerns. also to ensure safe home environment that guns/weapons are either removed from the home or locked away. Social work also to arrange for patients follow up appointments with [facility] for psychiatric care along with follow up with primary care provider. -Patient counseled on abstaining from recreational drugs and marijuana and alcohol. Was informed/educated on the adverse effects on their physical and mental health. Patient verbally agreed and understood. -Patient was instructed to return to the hospital or seek immediate medical care if their psychiatric or medical symptoms do worsen or reoccur. Abnormal Labs 11/01/24 11/01/24 11/02/24 13:40 13:40 13:40 Sodium 133 L Cholesterol HDL Cholesterol Urine Appearance Cloudy H Ur Leukocyte Esterase Large H Urine WBC 26 H Ur Squamous Epith Cells 19 H U Marijuana (THC) Screen Detected H 11/03/24 07:34 Sodium Cholesterol 218.00 H HDL Cholesterol 108.00 H Urine Appearance Ur Leukocyte Esterase Urine WBC Ur Squamous Epith Cells U Marijuana (THC) Screen Vital Signs Temp 97.9 F 11/07/24 08:50 Pulse 118 H 11/07/24 08:50 Resp 16 11/07/24 08:50 BP 113/63 11/07/24 08:50 Pulse Ox 96 11/07/24 08:50 FiO2 Allergies Allergy/AdvReac Type Severity Reaction Status Date / Time adhesive tape Allergy Rash/Hives Verified 11/01/24 17:36 chlorpromazine Allergy Anaphylaxis Verified 11/01/24 17:36 [From Thorazine] codeine Allergy Rash/Hives Verified 11/01/24 17:36 haloperidol [From Haldol] Allergy Rash/tardive Verified 11/01/24 17:36 dyskinesia latex Allergy "rash" Verified 11/01/24 17:36 nicotine [From [facility]] Allergy Rash/Hives Verified 11/01/24 17:36 Patient Condition at Discharge: Stable Plan - Discharge Summary Discharge Rx Participant: No New Discharge Prescriptions: New buPROPion XL [Wellbutrin XL] 300 mg PO DAILY 30 Days #30 tab Paliperidone [Invega] 6 mg PO HS 14 Days #14 tab Escitalopram [Lexapro] 20 mg PO DAILY 30 Days #30 tab Atorvastatin [Lipitor] 10 mg PO DAILY #0 tab Paliperidone IM [Invega Sustenna] 234 mg IM QMONTHLY 30 Days #1 each Continue Omeprazole [PriLOSEC] 20 mg PO DAILY Melatonin 3 mg PO HS PRN PRN Reason: sleep busPIRone HCL 15 mg PO TID 30 Days #90 tab Benztropine Mesylate [Cogentin] 1 mg PO BID 30 Days #60 tab Divalproex ER [Depakote ER] 500 mg PO BID 30 Days #60 tab Discontinued Escitalopram Oxalate [Lexapro] 30 mg PO DAILY Sennosides [Senokot] 8.6 mg PO DAILY PRN PRN Reason: Constipation Paliperidone Palmitate [Invega Sustenna] 117 mg IM Q28D Eucerin Cream 1 applic TOPICAL TID PRN PRN Reason: rash/dry skin Discharge Medication List Omeprazole [PriLOSEC] 20 mg PO DAILY 11/05/23 [History] Melatonin 3 mg PO HS PRN 06/15/24 [History] Atorvastatin [Lipitor] 10 mg PO DAILY #0 tab 11/08/24 [Rx] Benztropine Mesylate [Cogentin] 1 mg PO BID 30 Days #60 tab 11/08/24 [Rx] Divalproex ER [Depakote ER] 500 mg PO BID 30 Days #60 tab 11/08/24 [Rx] Escitalopram [Lexapro] 20 mg PO DAILY 30 Days #30 tab 11/08/24 [Rx] Paliperidone IM [Invega Sustenna] 234 mg IM QMONTHLY 30 Days #1 each 11/08/24 [Rx] Paliperidone [Invega] 6 mg PO HS 14 Days #14 tab 11/08/24 [Rx] buPROPion XL [Wellbutrin XL] 300 mg PO DAILY 30 Days #30 tab 11/08/24 [Rx] busPIRone HCL 15 mg PO TID 30 Days #90 tab 11/08/24 [Rx] Follow up Appointment(s)/Referral(s): Sheela Bravo [Other] - As Needed (Sheela bravo, contact if you would like additional assistance or resources upon discharge) [facility] [Outside] - 11/09/24 11:30 am [place] [facility] [Outside] - 11/10/24 4:00 pm (11-10-24 at 4:00 with Jorge Baltazar (clinician) ) Rhonda Ceja DO [Primary Care Provider] - 1-2 days Patient Instructions/Handouts: Depression (DC) Activity/Diet/Wound Care/Special Instructions: [facility] Discharge Info Avoid the use of street drugs and alcohol. Take all medications as prescribed. When you are in need of refills on your medications, please contact your outpatient medical provider and/or outpatient psychiatrist. Please go to your scheduled outpatient appointments for aftercare treatment. If symptoms return or become worse, call the crisis line at or and/or visit the nearest emergency room for assistance. National Suicide and Crisis Lifeline - call or text 885. Discharge Disposition: HOME SELF-CARE
== END 2024-11-08 12:50 | disposition home or self-care (01) | DRG 918 ==
LOC: EC 11:59 → 3MHU 11-02 16:30
PROVIDERS: ADMIT Psychiatry & Neurology Psychiatry; ATTEND Psychiatry & Neurology Psychiatry
DX: T43.222A Poisoning by selective serotonin reuptake inhibitors, intentional self-harm, initial encounter (principal); F29 Unspecified psychosis not due to a substance or known physiological condition; F33.2 Major depressive disorder, recurrent severe without psychotic features; F12.10 Cannabis abuse, uncomplicated; T44.3X2A Poisoning by other parasympatholytics [anticholinergics and antimuscarinics] and spasmolytics, intentional self-harm, initial encounter; T43.592A Poisoning by other antipsychotics and neuroleptics, intentional self-harm, initial encounter; E78.5 Hyperlipidemia, unspecified; F43.10 Post-traumatic stress disorder, unspecified; F60.89 Other specific personality disorders; Z91.51 Personal history of suicidal behavior; Z91.040 Latex allergy status; Z88.5 Allergy status to narcotic agent; Z88.8 Allergy status to other drugs, medicaments and biological substances; Z91.048 Other nonmedicinal substance allergy status; Z79.899 Other long term (current) drug therapy; Z87.891 Personal history of nicotine dependence; Z90.710 Acquired absence of both cervix and uterus
CPT/HCPCS: 36415; 80053; 80061; 80143; 80164; 80179; 80306; 80320; 81001; 81025; 82075; 83036; 84443; 85025; 87635; 93005; 99285

== ENCOUNTER → 2024-11-25 | Outpatient (CLI) | payer MEDICARE ==
[~2024-11-25] MED LIST changes: -LACTATED RINGERS 1,000 ML IV SCH; -LIDOCAINE 1% 20 ML VIAL (10MG/ML) FOR IV START INTRADERMA PRN; +REGADENOSON 0.4 MG/5 ML SYRINGE IV PRN
--- NOTE | 2024-11-25 14:35 | CA ---
Lexiscan Nuclear Stress Test Report Name: Lynette Cruz Exam Date: 11/25/2024 11:00 Exam Location: [facility] Ht (in): 64 Wt (lb): 175 BSA: 1.85 Ordering Phys: Wojciech Ceja MD Referring Phys: TRUDY, Technologist: Leonardo Moreno Age: 64 Gender: F : 1960 Procedure CPT: Indications: R07.9 CHEST PAIN ICD-10 Codes: Patient History: Medications: LEXIPRO, DEPIZUK, COGEN, OMEPERAZOLE Meds past 24 hrs: Pretest Chest Pain: STRESS TEST Lexiscan Protocol Exercise Duration (min:sec): 02:[address] Depressions (mm): Angina Score: Phan Score: Resting HR (bpm): 69 Peak HR (bpm): 101 Resting BP (mmHg): 130 / 84 Peak BP (mmHg): 146 / 70 MPHR: 156 Target HR: 133 % MPHR: 65 METS: 1.0 Total Dose: Peak Dose: Atropine: Double Product: 70905 BP Response: Stress Termination: INFUSION COMPLETE Stress Symptoms: NO SYMPTOMS Stress Summary: ECG ANALYSIS Resting ECG: Stress ECG: CONCLUSIONS Nondiagnostic stress testing Dr. Alex Timmons MD (Electronically Signed) Final Date: 25 November 2024 14:35
--- NOTE | 2024-11-25 15:29 | NM ---
EXAMINATION TYPE: NM stress lexiscan cardiolite DATE OF EXAM: 11/25/2024 COMPARISON: NONE CLINICAL INDICATION: Female, 64 years old with history of R07.9 CHEST PAIN; history of hypercholester olemia. TECHNIQUE: After the intravenous administration of 10.5 mCi Tc 99m Sestamibi - Cardiolite resting SP ECT images acquired 45 minutes post injection. The patient received 0.4mg Lexiscan, 24.7 mCi Tc 99m Sestamibi - Stress images obtained [address] injection FINDINGS: Review of stress and rest SPECT images demonstrates area of diminished color intensity on stress imag es versus rest images involving the inferior lateral left ventricular wall mid zone level in which ac koi ischemia cannot be excluded. Gated analysis shows normal wall motion with an estimated left vent ricular ejection fraction of 69 %. IMPRESSION: Cannot exclude acute ischemia. Consider further investigation with direct catheter angiog jatin. [facility], , 11/25/2024 3:26 PM
== END | disposition home or self-care (01) ==
LOC: RADNMMAIN 08:42
PROVIDERS: ATTEND Family Medicine
DX: R07.9 Chest pain, unspecified (principal); E78.00 Pure hypercholesterolemia, unspecified
CPT/HCPCS: 93017; 78452; A9500; J2785

== ENCOUNTER → 2024-12-26 | Day surgery (SDC) | payer MEDICARE, OTHER ==
[2024-12-22 14:50] VITALS: BMI 29.5
[~2024-12-26] MED LIST changes: +ALPRAZolam 0.25 MG TAB PO PRN; +NITROGLYCERIN SL TABS 0.4 MG TAB SUBLINGUAL PRN; -REGADENOSON 0.4 MG/5 ML SYRINGE IV PRN
[2024-12-26] MEDS: SODIUM CHLORIDE 0.9% 1,000 ML in EMPTY BAG 1 BAG IV SCH (06:36)
[2024-12-26] MEDS: ASPIRIN 325 MG TAB PO ONE (06:37)
[2024-12-26] MEDS: ATORVASTATIN 80 MG TAB PO ONE (06:37)
[2024-12-26] MEDS: IV FLUID CONTINUATION 1,000 ML IV ONE (06:38)
[2024-12-26] MEDS: ALPRAZolam 0.5 MG TAB PO PRN (06:43)
[2024-12-26 06:50] VITALS: RESP 16; TEMP 97.9
[2024-12-26] MEDS: MIDAZOLAM 2 MG/2 ML VIAL IVP ONE (07:30)
[2024-12-26] MEDS: fentaNYL (PF) 50 MCG/ML 2 ML AMP IVP ONE (07:32)
[2024-12-26] MEDS: LIDOCAINE 1% INJ 10MG/ML (20 ML MDV) SQ ONE (07:35)
[2024-12-26] MEDS: VERAPAMIL SYRINGE (5 MG/10 ML) INTRAARTER ONE (07:36)
[2024-12-26] MEDS: HEPARIN SODIUM 1,000 UN/ML (10ML VL) IV ONE (07:38)
[2024-12-26] MEDS: HEPARIN SODIUM,PORCINE 10,000 UNIT in SODIUM CHLORIDE 0.9% 1,000 ML IRRIGATION PRN (07:38)
[2024-12-26] MEDS: HEPARIN SODIUM,PORCINE (1 ML) 2,500 UNIT in SODIUM CHLORIDE 0.9% 250 ML IRRIGATION PRN (07:38)
[2024-12-26] MEDS: IOPAMIDOL-370 100ML BTL INJ ONE (07:44)
--- NOTE | 2024-12-26 07:48 | P.CARDCATH ---
Description of Procedure: PROCEDURES PERFORMED: Left heart catheterization, bilateral coronary angiography, ultrasound guided arterial access INDICATION: Abnormal stress test CONSENT:I have discussed the risks, benefits and alternative therapies for the above-mentioned procedure and for both sedation/analgesia as well as necessary blood product administration, if indicated, as they pertain to this patient. The patient has indicated understanding and acceptance of the risks and procedures discussed. PROCEDURE: After the risks, benefits and alternatives of the above mentioned procedure explained in detail with the patient, informed consent was obtained. Patient was taken to the catheterization lab and prepped and draped in usual fashion. Ultrasound guidance was used to assess for arterial access. 1% lidocaine was used to anesthetize the right radial artery. A 6-Rwandan sheath was placed in the right radial artery using modified Seldinger technique and ultrasound guidance. Left coronary angiography was performed with a 5-Rwandan JL 3.5 catheter and right coronary angiography was performed with a 5-Rwandan FR5 catheter in various views. A 5-Rwandan FR5 catheter was inserted into the left ventricle and pressure measurements were obtained. The right radial sheath was removed and a TR band was placed with hemostasis achieved. The patient to lerated the procedure well. Patient was transported back to the post catheterization holding area in stable condition. Conscious Sedation: Patient was monitored under the direct supervision of myself for conscious sedation using Versed and fentanyl for a total duration of 10 minutes HEMODYNAMICS: Aorta: 128/72 LV: 128/3, LVEDP 12 SELECTIVE CORONARY ARTERIOGRAPHY: LEFT MAIN: The left main is a large caliber vessel which bifurcates into the LAD and circumflex. There is no significant stenosis. LEFT ANTERIOR DESCENDING CORONARY ARTERY: LAD is a large caliber vessel which wraps around to the apex. There is no significant stenosis. LEFT CIRCUMFLEX CORONARY ARTERY: Left circumflex is a moderate caliber vessel without significant stenosis. RIGHT CORONARY ARTERY: The right coronary artery is a large caliber vessel which gives off a PDA and PLV branch and is the dominant vessel. There is no significant stenosis. FINAL IMPRESSION: 1. Normal coronary arteries as described above. 2. Normal left sided filling pressures PLAN: 1. Aggressive risk factor modification per most recent ACC/AHA guidelines. 2. Follow-up in the office in 1-2 weeks.
[2024-12-26 18:49] VITALS: BP 102/61; PULSE 77
== END ==
LOC: CATHCVL 06:10
PROVIDERS: ATTEND Internal Medicine
DX: R94.39 Abnormal result of other cardiovascular function study (principal); R07.9 Chest pain, unspecified
CPT/HCPCS: 93458; C1894; J2250; J1644 ×3; J2003; J3010; Q9967

== ENCOUNTER → 2025-01-12 | Outpatient (CLI) | payer OTHER ==
--- NOTE | 2025-01-12 11:08 | MM ---
Reason for Exam: Screening (asymptomatic). Last mammogram was performed 1 year(s) and 1 month(s) ago. Patient History: Menarche at age 12. First Full-Term at age 33. Late child-bearing (after 30). Left ovary removed at age 47. Right ovary removed at age 47. Hysterectomy at age 47. Postmenopausal. 05/27/2006, Benign Core Biopsy on the right side. Risk Values: Traci 5 year model risk: 2.6%. NCI Lifetime model risk: 10.4%. Prior Study Comparison: 10/31/2021 Bilateral Screening Mammogram, [facility]. 11/25/2022 Bilateral MG screening mammo w CAD, [facility]. 01/07/2024 Bilateral MG 3D diag mammo w/cad [facility], [facility]. Tissue Density: The breasts are heterogeneously dense, which may obscure small masses. Findings: Analyzed By CAD. Mammotome biopsy clip adjacent to 2 small circumscribed masses is redemonstrated in the right breast. There is stable small circumscribed mass anteriorly in the left breast. Stable focal asymmetric tissue upper outer aspect left breast. There is no suspicious group of microcalcifications or new distortion in either breast. Overall Assessment: Benign, BI-RAD 2 Management: Screening Mammogram of both breasts in 1 year. . Patient should continue monthly self-breast exams. A clinical breast exam by your physician is recommended on an annual basis. This exam should not preclude additional follow-up of suspicious palpable abnormalities. Note on Traci scores and lifetime risk: 1. A Traci score greater than 3% is considered moderate risk. If this is the case, consider specialist referral to assess eligibility for a risk reducing agent. 2. If overall lifetime risk for the development of breast cancer is 20% or higher, the patient may qualify for future screening with alternating mammogram and breast MRI. [facility], , 01/12/2025 11:06 AM. Electronically signed and approved by: Jones Moses M.D.
== END | disposition home or self-care (01) ==
LOC: RADMAMWWP 09:32
PROVIDERS: ATTEND General Practice
DX: Z12.31 Encounter for screening mammogram for malignant neoplasm of breast (principal); R92.333 Mammographic heterogeneous density, bilateral breasts; Z78.0 Asymptomatic menopausal state
CPT/HCPCS: 77067

== ENCOUNTER 2025-03-16 11:03 | Emergency (ER) | payer OTHER ==
--- NOTE | 2025-03-16 12:10 | ED ---
Psych HPI - General Source: patient, EMS, RN notes reviewed, Caregiver Mode of arrival: EMS Limitations: no limitations <Deon Miramontes - Last Filed: 03/16/25 14:20> <Rory Hui - Last Filed: 03/16/25 14:34> - General Chief Complaint: Psychiatric Symptoms Stated Complaint: Suicidal Time Seen by Provider: 03/16/25 11:03 - History of Present Illness Initial Comments: 65-year-old female presents emergency department via EMS from [place] office for psych evaluation. Patient is depressed, suicidal. Patient has a long history of psychiatric issues stating that she was, harm or self. Patient denies any physical complaints. Patient states has been taking her medications as directed. (Deon Miramontes) - Related Data Home Medications Medication Instructions Recorded Confirmed Aspirin [Adult Low Dose Aspirin EC] 81 mg PO DAILY 12/26/24 12/26/24 Atorvastatin [Lipitor] 40 mg PO DAILY 12/26/24 12/26/24 busPIRone HCL 15 mg PO BID 12/26/24 12/26/24 Previous Rx's Medication Instructions Recorded Benztropine Mesylate [Cogentin] 1 mg PO BID 30 Days #60 tab 11/08/24 Escitalopram [Lexapro] 20 mg PO DAILY 30 Days #30 tab 11/08/24 Paliperidone IM [Invega Sustenna] 234 mg IM QMONTHLY 30 Days #1 each 11/08/24 Allergies Allergy/AdvReac Type Severity Reaction Status Date / Time adhesive tape Allergy Rash/Hives Verified 12/22/24 14:30 chlorpromazine Allergy Anaphylaxis Verified 12/22/24 14:30 [From Thorazine] codeine Allergy Rash/Hives Verified 12/22/24 14:30 haloperidol [From Haldol] Allergy Rash/tardive Verified 12/22/24 14:30 dyskinesia latex Allergy "rash" Verified 12/22/24 14:30 nicotine [From Nicoderm CQ] Allergy Rash/Hives Verified 12/22/24 14:30 Review of Systems ROS Other: All systems not noted in ROS Statement are negative. <Deon Miramontes - Last Filed: 03/16/25 14:20> ROS Other: All systems not noted in ROS Statement are negative. <Rory Hui - Last Filed: 03/16/25 14:34> ROS Statement: Those systems with pertinent positive or pertinent negative responses have been documented in the HPI. Past Medical History Past Medical History: GERD/Reflux, Hyperlipidemia, Sleep Apnea/CPAP/BIPAP Additional Past Medical History / Comment(s): See Dr Li's H&P. No device for sleep apnea. History of Any Multi-Drug Resistant Organisms: None Reported Past Surgical History: Section, Cholecystectomy, Hysterectomy, Orthopedic Surgery, Tubal Ligation Additional Past Surgical History / Comment(s): PILONIADAL CYSTECTOMY, RIGHT ROTATOR CUFF REPAIR. Past Anesthesia/Blood Transfusion Reactions: No Reported Reaction, Motion Sickness Past Psychological History: Depression Smoking Status: Former smoker Past Alcohol Use History: None Reported Past Drug Use History: None Reported - Past Family History Mother History Unknown: Yes Family Medical History: Cancer Additional Family Medical History / Comment(s): Ca, unknown kind Father History Unknown: Yes Family Medical History: Cancer Additional Family Medical History / Comment(s): Ca, unknown kind Sister(s) History Unknown: Yes <Deon Miramontes - Last Filed: 03/16/25 14:20> General Exam Limitations: no limitations General appearance: alert, in no apparent distress Head exam: Present: atraumatic, normocephalic, normal inspection Eye exam: Present: normal appearance, PERRL, EOMI. Absent: scleral icterus, conjunctival injection, periorbital swelling ENT exam: Present: normal exam, mucous membranes moist Neck exam: Present: normal inspection, full ROM. Absent: tenderness, menin gismus, lymphadenopathy Respiratory exam: Present: normal lung sounds bilaterally. Absent: respiratory distress, wheezes, rales, rhonchi, stridor Cardiovascular Exam: Present: regular rate, normal rhythm, normal heart sounds. Absent: systolic murmur, diastolic murmur, rubs, gallop, clicks GI/Abdominal exam: Present: soft, normal bowel sounds. Absent: distended, tenderness, guarding, rebound, rigid <Deon Miramontes - Last Filed: 03/16/25 14:20> Course Vital Signs 03/16/25 11:09 Temperature 98.2 F Pulse Rate 81 Respiratory 18 Rate Blood Pressure 125/81 O2 Sat by Pulse 97 Oximetry Medical Decision Making - Lab Data Result diagrams: 03/16/25 13:13 03/16/25 13:13 - EKG Data -: EKG Interpreted by Me <Deon Miramontes - Last Filed: 03/16/25 14:20> - Lab Data Result diagrams: 03/16/25 13:13 03/16/25 13:13 <Rory Hui - Last Filed: 03/16/25 14:34> - Medical Decision Making Was pt. sent in by a medical professional or institution (, PA, DRY BOX OPERATOR, urgent care, hospital, or retirement...) When possible be specific @ -PCP Did you speak to anyone other than the patient for history (EMS, parent, family, police, friend...)? What history was obtained from this source @ -No Did you review nursing and triage notes (agree or disagree)? Why? @ -I reviewed and agree with nursing and triage notes Were old charts reviewed (outside hosp., previous admission, EMS record, old EKG, old radiological studies, urgent care reports/EKG's, retirement records)? Report findings @ -No old charts were reviewed Differential Diagnosis (chest pain, altered mental status, abdominal pain women, abdominal pain men, vaginal bleeding, weakness, fever, dyspnea, syncope, headache, dizziness, GI bleed, back pain, seizure, CVA, palpatations, mental health, musculoskeletal)? @ -[Differential Mental Health Depression, anxiety, bipolar, psychosis, schizophrenia, borderline personality, situational depression, adjustment disorder, behavioral disorder, brain tumor, malingering, substance abuse, encephalopathy, medication reaction, dementia, hypothyroidism, degenerative neurologic disorder, lupus.... This is not meant to be all-inclusive list EKG interpreted by me (3pts min.). @ -As above X-rays interpreted by me (1pt min.). @ -None done CT interpreted by me (1pt min.). @ -None done U/S interpreted by me (1pt. min.). @ -None done What testing was considered but not performed or refused? (CT, X-rays, U/S, labs)? Why? @ -None What meds were considered but not given or refused? Why? @ -None Did you discuss the management of the patient with other professionals (professionals i.e. , PA, DRY BOX OPERATOR, lab, RT, psych nurse, social media editor, client technical specialist, teacher, navy airspace officer, shoe parts caser)? Give summary @ -EPS evaluated patient recommended inpatient treatment patient will be a [facility]. Was smoking cessation discussed for >3mins.? @ -No Was critical care preformed (if so, how long)? @ -No Were there social determinants of health that impacted care today? How? (Homelessness, low income, unemployed, alcoholism, drug addiction, transportation, low edu. Level, literacy, decrease access to med. care, long term, rehab)? @ -No Was there de-escalation of care discussed even if they declined (Discuss DNR or withdrawal of care, Hospice)? DNR status @ -No What co-morbidities impacted this encounter? (DM, HTN, Smoking, COPD, CAD, Cancer, CVA, ARF, Chemo, Hep., AIDS, mental health diagnosis, sleep apnea, morbid obesity)? @ -None Was patient admitted / discharged? Hospital course, mention meds given and route, prescriptions, significant lab abnormalities, going to OR and other pertinent info. @ -Transfer to [place] psychiatric facility. Undiagnosed new problem with uncertain prognosis? @ -No Drug Therapy requiring intensive monitoring for toxicity (Heparin, Nitro, Insulin, Cardizem)? @ -No Were any procedures done? @ -No Diagnosis/symptom? @ -[Depression, suicide ideation Acute, or Chronic, or Acute on Chronic? @ -Acute Uncomplicated (without systemic symptoms) or Complicated (systemic symptoms)? @ -Complicated Side effects of treatment? @ -No Exacerbation, Progression, or Severe Exacerbation? @ -No Poses a threat to life or bodily function? How? (Chest pain, [place], [place], pneumonia, PE, COPD, DKA, ARF, appy, cholecystitis, CVA, Diverticulitis, Homicidal, Suicidal, threat to staff... and all critical care pts) @ -Yes suicidal (Deon Miramontes) I have filled out a clinical certification for this patient and patient will be transferred to a psychiatric facility (Rory Hui) - Lab Data Lab Results 03/16/25 03/16/25 03/16/25 Range/Units 13:13 13:13 13:13 WBC 7.66 (4.50-10.00) 10*3/uL RBC 4.25 (4.10-5.20) 10*6/uL Hgb 13.2 (12.0-15.0) g/dL Hct 39.1 (37.2-46.3) % MCV 92.0 (80.0-97.0) fL MCH 31.1 (27.0-32.0) pg MCHC 33.8 (32.0-37.0) g/dL Plt Count 255 (140-440) 10*3/uL MPV 10.7 (9.5-12.2) fL Immature Gran % (Auto) 0.3 % Neutrophils % 61.7 % Lymphocytes % 26.5 % Monocytes % 10.3 % Eosinophils % 0.7 % Basophils % 0.5 % Immature Gran # 0.02 (0.00-0.04) 10*3/uL Neutrophils # 4.73 (1.80-7.70) 10*3/uL Lymphocytes # 2.03 (0.90-5.00) 10*3/uL Monocytes # 0.79 (0.20-1.00) 10*3/uL Eosinophils # 0.05 (0.04-0.35) 10*3/uL Basophils # 0.04 (0.00-0.10) 10*3/uL Sodium 138 (137-145) mmol/L Potassium 3.7 (3.5-5.1) mmol/L Chloride 106 (98-107) mmol/L Carbon Dioxide 25 (22-30) mmol/L Anion Gap 7 mmol/L BUN 8 (7-17) mg/dL Creatinine 0.95 (0.52-1.04) mg/dL Est GFR (CKD-EPI)AfAm 73 (>60 ml/min/1.73 sqM) Est GFR (CKD-EPI)NonAf 63 (>60 ml/min/1.73 sqM) Glucose 94 (74-99) mg/dL Calcium 9.9 (8.4-10.2) mg/dL Total Bilirubin 0.4 (0.2-1.3) mg/dL AST 24 (14-36) U/L ALT 23 (4-34) U/L Alkaline Phosphatase 79 (38-126) U/L Total Protein 6.1 L (6.3-8.2) g/dL Albumin 3.8 (3.5-5.0) g/dL SARS-CoV-2 (PCR) Not Detected (Not Detectd) - EKG Data EKG Comments: EKG performed at 14: 05 sinus bradycardia rate of 57 [place] 181 QRS 94 QT/QTc 412/407 (Deon Miramontes) Disposition Time of Disposition: 12:09 <Deon Miramontes - Last Filed: 03/16/25 14:20> <Rory Hui - Last Filed: 03/16/25 14:34> Clinical Impression: Suicidal ideations, Depression Disposition: TRANSFER TO PSYCH HOSP/UNIT Condition: Stable Referrals: Rhonda Ceja DO [REFERRING] - 1-2 days
[2025-03-16 12:11] VITALS: RESP 18; TEMP 98.2
[2025-03-16 13:22] LABS: Basophils # (A) 0.04 10*3/uL (0.00-0.10); Basophils % (A) 0.5 %; Eosinophils # (A) 0.05 10*3/uL (0.04-0.35); Eosinophils % (A) 0.7 %; HCT 39.1 % (37.2-46.3); HGB 13.2 g/dL (12.0-15.0); Lymphocytes # (A) 2.03 10*3/uL (0.90-5.00); Lymphocytes % (A) 26.5 %; MCH 31.1 pg (27.0-32.0); MCHC 33.8 g/dL (32.0-37.0); MCV 92.0 fL (80.0-97.0); Monocytes # (A) 0.79 10*3/uL (0.20-1.00); Monocytes % (A) 10.3 %; Neutrophils # (A) 4.73 10*3/uL (1.80-7.70); Neutrophils % (A) 61.7 %; Platelet Count 255 10*3/uL (140-440); RBC 4.25 10*6/uL (4.10-5.20); RDW 13.2 % (11.5-14.5); WBC 7.66 10*3/uL (4.50-10.00)
[2025-03-16 13:33] LABS: ALT 23 U/L (4-34); AST 24 U/L (14-36); African American GFR (CKD) 73 (>60 ml/min/1.73 sqM); Albumin 3.8 g/dL (3.5-5.0); Alkaline Phosphatase 79 U/L (38-126); Anion Gap 7 mmol/L; Blood Urea Nitrogen 8 mg/dL (7-17); Calcium 9.9 mg/dL (8.4-10.2); Carbon Dioxide 25 mmol/L (22-30); Chloride 106 mmol/L (98-107); Glucose 94 mg/dL (74-99); Non-African American GFR(CKD) 63 (>60 ml/min/1.73 sqM); Potassium 3.7 mmol/L (3.5-5.1); Sodium 138 mmol/L (137-145); Total Protein 6.1 g/dL (6.3-8.2)
[2025-03-16 15:15] LABS: Bilirubin,Urine Negative (Negative); Blood,Urine Negative (Negative); Color,Urine Colorless; Glucose,Urine (UA) Negative (Negative); Ketones,Urine Negative (Negative); Leukocyte Esterase,Urine Moderate (Negative); Mucus,Urine Rare /hpf; Nitrite,Urine Negative (Negative); PH, Urine 7.0 (5.0-8.0); Protein,Urine Negative (Negative); RBC,Urine 2 /hpf (0-5); Specific Gravity,Urine 1.003 (1.001-1.035); Squamous Epithelial Cell,Urine 5 /hpf (0-4); Urobilinogen,Urine <2.0 mg/dL (<2.0); WBC,Urine 17 /hpf (0-5)
[2025-03-16 15:27] LABS: Barbiturate Screen,Urine Not Detected (NotDetected); Benzodiazepines Screen,Urine Not Detected (NotDetected); Opiate Screen,Urine Not Detected (NotDetected); Oxycodone Screen, Urine Not Detected (NotDetected); Phencyclidine Screen,Urine Not Detected (NotDetected); Tricyclic Antidepressant,Urine Not Detected (NotDetected); Urn Cannabinoid Scrn Detected (NotDetected)
[2025-03-16 20:41] VITALS: BP 115/70; PULSE 74
== END 2025-03-16 20:40 ==
LOC: EC 11:03
DX: F32.A Depression, unspecified (principal); R45.851 Suicidal ideations; Z87.891 Personal history of nicotine dependence; Z88.8 Allergy status to other drugs, medicaments and biological substances; Z91.040 Latex allergy status; Z91.048 Other nonmedicinal substance allergy status; Z88.5 Allergy status to narcotic agent
CPT/HCPCS: 36415; 80053; 80306; 81001; 82075; 85025; 87635; 93005; 99285